=== PATIENT | male | born 1940 | race Caucasian/White ===

== ENCOUNTER 2017-11-11 09:20 | Observation (INO) | payer MEDICARE, OTHER ==
[2017-11-04 11:51] VITALS: BMI 20.5
--- NOTE | 2017-11-04 15:17 | HP ---
Admitting History and Physical - Primary Care Physician PCP: Blanco Rodriguez - Admission Chief Complaint: Left lower quadrant abdominal melanoma, right upper back basal cell carcinoma History of Present Illness: 76 year old man who has not seen a doctor in decades presents with ulcerated left lower qyadrant abdominal fungating mass that has been bleeding. Patient went to ER but no appreciable anemia was oted. This was biopsied and found to be an ulcerated malignant melanoma Mohan level 4,1.05 mm. In addition they noted right upper back ulcerated lesion that was biopsied and consistent with BCC, CT of chest abdomen and pelvis showed no metastatic dz. History Source: Patient Limitations to Obtaining History: No Limitations - Advance Directives Advance Directives: Yes: Health Care Proxy - Smoking History Smoking history: Never smoked - Alcohol/Substance Use Hx Alcohol Use: No Home Medications - Allergies Allergies/Adverse Reactions: Allergies Allergy/AdvReac Type Severity Reaction Status Date / Time No Known Allergies Allergy Verified 11/04/17 11:42 - Home Medications Home Medications: Ambulatory Orders Ferrous Sulfate [Feosol] 325 mg PO DAILY 11/04/17 Multivitamin [One Daily] 1 each PO DAILY 11/04/17 Saw/Vit E/Sod Saloni/Lyc/Beta/Pyg [Prostate Health Caplet] 1 each PO DAILY Ubidecarenone [Coq-10] 100 mg PO DAILY 11/04/17 Family Disease History - Family Disease History Family Disease History: CA: Daughter (hodgkins lymohoma) Physical Examination Constitutional: Yes: Well Nourished Gastrointestinal: Yes: Hernia (large scrotal hernia nontender//8x4 cm ulcerated skin lesion in upper right back// left lower quadrant of abdomen is a 10 cm polypoid mushroom like pigmented mass with 2x2 cm stalk, no sattelite lesions) Problem List - Problems (1) Malignant melanoma of skin of abdomen Code(s): C43.59 - MALIGNANT MELANOMA OF OTHER PART OF TRUNK (2) Basal cell carcinoma (BCC) of upper back Code(s): C44.519 - BASAL CELL CARCINOMA OF SKIN OF OTHER PART OF TRUNK Assessment/Plan right upper back malignant wide excision, melanoma excision of left lower abdomen with plastics closure, sentenel node biopsy ,lymphoscintigram
[2017-11-11] MEDS ORDERED: ISOSULFAN BLUE 10 MG/ML VIAL SQ ONE (09:47)
[2017-11-11] MEDS ORDERED: LIDOCAINE HCL 1%, 10 MG/ML (20ML VIAL) ONE (09:47)
[2017-11-11] MEDS ORDERED: BUPIVACAINE HCL/PF 2.5 MG/ML - 30 ML VIAL IJ ONE (09:47)
[2017-11-11] MEDS ORDERED: fentaNYL CITRATE 250 MCG/5 ML VIAL ONE (10:20)
[2017-11-11] MEDS ORDERED: ROCURONIUM BROMIDE 50 MG/5 ML VIAL ONE ×3 (10:20→12:01)
[2017-11-11] MEDS ORDERED: MIDAZOLAM HCL 2 MG/2 ML SINGLE DOSE VIAL ONE (10:21)
[2017-11-11] MEDS ORDERED: PROPOFOL 20 ML ONE (11:13)
[2017-11-11] MEDS ORDERED: ceFAZolin SODIUM 1 GM VIAL ONE (11:15)
[2017-11-11] MEDS ORDERED: LIDOCAINE HCL 2% JELLY (5 ML/TUBE) ONE (11:16)
[2017-11-11] MEDS ORDERED: ePHEDrine SULFATE 50 MG/1 ML AMPULE ONE (11:44)
[2017-11-11] MEDS ORDERED: ONDANSETRON 4 MG/2 ML VIAL ONE (11:54)
[2017-11-11] MEDS ORDERED: DEXAMETHASONE SOD PHOSPHATE 4 MG/1 ML VIAL ONE (11:54)
[2017-11-11] MEDS ORDERED: ONDANSETRON 4 MG/2 ML VIAL IVPUSH PRN (12:12)
[2017-11-11] MEDS ORDERED: LIDOCAINE 1%/EPI 1:100000 (20 ML MULTI DOSE VIAL) ONE ×2 (12:12→13:14)
[2017-11-11] MEDS ORDERED: LIDOCAINE 1%/EPI 1:100000 (50 ML MULTI DOSE VIAL) INF ONE (12:12)
[2017-11-11] MEDS ORDERED: DESFLURANE GAS 240 ML BOTTLE IH ONE (12:50)
[2017-11-11] MEDS ORDERED: NEOSTIGMINE METHYLSULFATE 0.5 MG/ML - 10 ML MDV ONE (13:45)
[2017-11-11] MEDS ORDERED: GLYCOPYRROLATE 0.2 MG/1 ML VIAL ONE (13:46)
[2017-11-11] MEDS ORDERED: LACTATED RINGERS SOLUTION 1,000 ML IV SCH (15:15)
--- NOTE | 2017-11-11 15:45 | OP ---
DATE OF OPERATION: 11/11/2017 TITLE OF PROCEDURE: 1. Fasciocutaneous-flap reconstruction of posterior trunk defect from excision of basal cell carcinoma. 2. Adjacent tissue-transfer reconstruction of abdominal wall defect from wide local excision of melanoma. 3. A 4-cm, complex, primary closure of left groin wound incision from sentinel lymph node biopsy. ATTENDING SURGEON: Ramírez Porter MD ASSISTANTS: There were no assistants. ANESTHESIA: General endotracheal anesthesia. PROCEDURE IN DETAIL: Procedure is performed in combination with wide local excision of invasive melanoma to the abdominal wall, wide local excision of invasive basal cell carcinoma to posterior trunk, and left inguinal sentinel lymph node biopsy. That portion of the procedure to be dictated separately by Dr. Blanco Rodriguez and his team. The patient is marked in the holding area of the appropriate sites. Risks, benefits and alternatives are discussed with the family which understood and agreed to proceed, as well as with the patient who understood and agreed to proceed. Patient is brought to the operating room. A gram of Ancef was given preoperatively. Sequential compression stockings and ROSIBEL hose are applied preoperatively. Patient is started in the prone position. Position is carefully checked by surgical and anesthesia teams. He is positioned, prepped and draped by Dr. Rodriguez and his team. I am not scrubbed in until the procedure is underway and ready for the first reconstruction. At this point, with the patient in a supine position, the first wound in the patient's left groin is closed with first a series of interrupted, deep fascial sutures closing space with a 3-0 Monocryl suture. The dermis is then closed with a series of interrupted, buried, deep dermal 3-0 Monocryl suture, followed by a running, subcuticular 3-0 Monocryl suture. This is a 4-cm incision that is closed primarily. At this point, the wide local excision of the large melanoma on the patient's abdominal wall is excised, leaving a defect that is 10 x 10 cm in dimensions down to the level of the abdominal wall musculature. The fascia had been preserved. A local advancement flap is required. This is performed by mobilizing the inferior skin and Bobby fascia over the level of the abdominal wall fascia. A Burow triangle donor site is excised along the medial and lateral extent of the advancement flap in order to allow for the started closure. A similar advancement flap from the more superior skin and Bobby layer fascia is elevated, preserving the perforating blood vessels when identified. Hemostasis is meticulously achieved with Bovie cautery. The deep Bobby layer fascia of each of the flaps is secured to one another with a series of interrupted 0-Vicryl suture, also with bites of the deep investing muscular fascia to close the space. At this point, skin "dog ears" are excised. Closure of all the skin is then performed with a series of interrupted, buried, deep dermal 3-0 Monocryl suture, followed by a running, subcuticular 3-0 Monocryl suture. Both this incision and the groin incision are dressed with 1/2-inch Steri-Strips longitudinally. ABD gauze and Hypafix tape are secured to the patient and preparations are made to turn the patient prone to address the invasive basal cell carcinoma on the patient's back. The drapes are removed. Patient is then repositioned first supine to a hospital stretcher, and then using all appropriate positional aids including chest rolls, arm pads, a pillow below the shins, and an eggcrate below the knees, the patient is then placed in a prone position. Position is carefully checked by surgical and anesthesia teams. He is re-prepped and draped in the standard surgical fashion. I awaited the wide local excision of the patient's tumor on his back performed by Dr. Blanco Rodriguez. That portion of the procedure will be dictated separately by Dr. Rodriguez. This left a [id number], circular defect on the patient's right superior back down to the level of the muscle bellies of the trapezius and latissimus muscles. Fascia was not preserved with this excision and a fasciocutaneous-flap closure is required. A rotation flap is planned, including the fascia overlying the more distal portion of the latissimus dorsi muscle which is mobilized into the defect. The donor site is able to be closed primarily in a long, curvilinear fashion. Hemostasis is meticulously achieved of perforating blood vessels through the latissimus dorsi muscle. The fascia is able to be approximated over the defect. The long fasciocutaneous-rotation flap is secured with a series of interrupted, buried 0 Vicryl suture. The dermis is then approximated with a series of interrupted, buried deep dermal 3-0 Monocryl suture and the skin is then closed with a series of interrupted natalie. Donor site and the defect are closed in the same fashion. The wound is dressed with ABD gauze, Hypafix tape, and patient is then transferred back to a supine position where he is extubated and transferred to the recovery room without complication. RAMÍREZ PORTER M.D. [facility]/[id number]
[2017-11-11] MEDS: DEXTROSE 5%-0.45% SALINE 1,000 ML IV SCH (16:47)
[2017-11-11] MEDS: oxyCODONE HCL 5 MG TABLET PO PRN (21:21)
[2017-11-12] MEDS: oxyCODONE HCL 5 MG TABLET PO PRN (06:29)
--- NOTE | 2017-11-12 07:28 | CONSULT ---
Consult Consult Specialty:: Hospital Medicine Referred by:: Blanco Rodriguez Reason for Consultation:: Blood Pressure management - History of Present Illness Chief Complaint: Hypertensive prior to surgery History of Present Illness: This is a 76 y/o man s/p right upper back malignant wide excision, melanoma excision of left lower abdomen POD #0. Prior to surgery patient's BP was elevated 198/103, asymptomatic denies CAI, blurred vision, dizziness, numbness, CP, SOB. Patient reports feeling anxious and that he did not get any sleep prior to the surgery, which he attributes to his BP being elevated. Patient reports that he was given medication by the anesthesiologist that helped to lower his BP, being able to proceed with surgery. Patient reports pain 5/10 to surgical sites. Patient denies SOB, CP, N/V. Patient reports tolerating PO liquids, he has not voided or had a BM. - History Source History Provided By: Patient Limitations to Obtaining History: No Limitations - Past Medical History Dermatology: Yes: Basal Cell, Melanoma - Past Surgical History Past Surgical History: Yes: Hernia Repair - Alcohol/Substance Use Hx Alcohol Use: No History of Substance Use: reports: None - Smoking History Smoking history: Never smoked - Social History Usual Living Arrangement: With Spouse ADL: Independent History of Recent Travel: No Home Medications - Allergies Allergies/Adverse Reactions: Allergies Allergy/AdvReac Type Severity Reaction Status Date / Time No Known Allergies Allergy Verified 11/11/17 10:01 - Home Medications Home Medications: Ambulatory Orders Ferrous Sulfate [Feosol] 325 mg PO DAILY 11/04/17 Multivitamin [One Daily] 1 each PO DAILY 11/04/17 Saw/Vit E/Sod Saloni/Lyc/Beta/Pyg [Prostate Health Caplet] 1 each PO DAILY Ubidecarenone [Coq-10] 100 mg PO DAILY 11/04/17 Family Disease History - Family Disease History Family Disease History: CA: Daughter (hodgkins lymohoma) Review of Systems - Review of Systems Constitutional: reports: No Symptoms Eyes: reports: No Symptoms HENT: reports: No Symptoms Neck: reports: No Symptoms Cardiovascular: reports: No Symptoms Respiratory: reports: No Symptoms Genitourinary: reports: No Symptoms Breasts: reports: No Symptoms Reported Musculoskeletal: reports: No Symptoms Neurological: reports: No Symptoms Endocrine: reports: No Symptoms Hematology/Lymphatic: reports: No Symptoms Psychiatric: reports: No Symptoms Physical Exam Vital Signs: Vital Signs Temperature 97.9 F 11/11/17 22:02 Pulse Rate 91 H 11/11/17 22:02 Respiratory Rate 19 11/11/17 22:02 Blood Pressure 162/89 11/11/17 22:02 O2 Sat by Pulse Oximetry (%) 97 11/11/17 22:02 Constitutional: Yes: No Distress, Calm, Thin Eyes: Yes: WNL, Conjunctiva Clear, EOM Intact, PERRL HENT: Yes: WNL, Atraumatic, Normocephalic Neck: Yes: WNL, Supple, Trachea Midline Cardiovascular: Yes: WNL, Regular Rate and Rhythm, S1, S2 Respiratory: Yes: WNL, Regular, CTA Bilaterally Gastrointestinal: Yes: Soft, Hypoactive Bowel Sounds, Other (dressing dry and intact) Breast(s): Yes: WNL Musculoskeletal: Yes: WNL Extremities: Yes: WNL Edema: No Peripheral Pulses WNL: Yes Wound/Incision: Yes: Dressing Dry and Intact Neurological: Yes: WNL, Alert, Oriented ...Motor Strength: WNL Psychiatric: Yes: WNL, Alert, Oriented Assessment/Plan 76 y/o man s/p right upper back malignant wide excision, melanoma excision of left lower abdomen POD #0. Plan: Continue with current regimen Monitor BP Consider ELENITA or Diuretic Monitor renal function Incentive Spirometer Visit type - Emergency Visit Emergency Visit: No - New Patient This patient is new to me today: Yes Date on this admission: 11/11/17 - Critical Care Critical Care patient: No
--- NOTE | 2017-11-12 08:13 | PN ---
Progress Note (short form) - Note Progress Note: POD 1 post trunk closures BP has been in reasonable control over past 24 hours Pain well controlled urinary retention this morning treated by straight cath All tissues viable without infection. small baloatable seroma on the inferior aspect of posterior closure Aspirated at bedside (10cc) Compressive dressing placed Once patient can urinate he may be discharged with evaluation from Hospitalist for home BP med recs. Leave all dressings dry until follow up on Mon/tues w/ Dr. Mccormick. Separate follow with Dr. Rodriguez.
--- NOTE | 2017-11-12 08:55 | OP ---
DATE OF OPERATION: 11/12/2017 TITLE OF PROCEDURE: Aspiration of seroma to posterior trunk reconstruction, surgical site. ATTENDING SURGEON: Berny Porter MD MODELING MANAGER: No assistants. ANESTHESIA: There is none. PREOPERATIVE DIAGNOSIS: Seroma, post-traumatic, posterior trunk. POSTOPERATIVE DIAGNOSIS: Seroma, post-traumatic, posterior trunk. PROCEDURE FOLLOWS: An 18-gauge needle and a 50-mL syringe are used. After prepping the skin with alcohol, the seroma is sterilely aspirated. Then, 10 mL of thin liquid phase fluid, reddish in color, are aspirated. The ballotable seroma is no longer palpable. A compressive dressing with an ABD gauze and taper applied. All tissues appear viable. No evidence of infection. Patient is to be monitored further by the hospitalist, medicine staff, and discharged as appropriate upon their recommendations. BERNY PORTER M.D. [facility]/[id number]
--- NOTE | 2017-11-12 10:41 | PN ---
Progress Note, Physician Chief Complaint: S/P WE of melanoma, snbx and excision of basal cell ca with reconstruction POD#1 History of Present Illness: Patient was seen this am at the bedside and reports good pain control. Patient was unable to void and was straight cathed this am. He has not voided since being catheterized. Patient is tolerating po as well. - Current Medication List Current Medications: Active Medications Dextrose/Sodium Chloride (D5-1/2ns -) 1,000 mls @ 100 mls/hr IV ASDIR KELLEY Last Admin: 11/11/17 16:47 Dose: Not Given Lactated Ringer's (Lactated Ringers Solution) 1,000 mls @ 125 mls/hr IV ASDIR KELLEY Last Admin: 11/11/17 16:47 Dose: Not Given Ondansetron HCl (Zofran Injection) 4 mg IVPUSH Q6H PRN PRN Reason: NAUSEA AND/OR VOMITING Oxycodone HCl (Roxicodone -) 5 mg PO Q6H PRN PRN Reason: PAIN LEVEL 1-5 Last Admin: 11/12/17 06:29 Dose: 5 mg - Objective Vital Signs: Vital Signs Temperature 98.5 F 11/12/17 07:12 Pulse Rate 83 11/12/17 07:12 Respiratory Rate 18 11/12/17 07:12 Blood Pressure 152/77 11/12/17 07:28 O2 Sat by Pulse Oximetry (%) 97 11/12/17 07:13 Constitutional: Yes: Well Nourished, Calm Wound/Incision: Yes: Dressing Dry and Intact (Back and abdominal dressing are clean without discharge.) Problem List - Problems (1) Basal cell carcinoma (BCC) of upper back Code(s): C44.519 - BASAL CELL CARCINOMA OF SKIN OF OTHER PART OF TRUNK (2) Malignant melanoma of skin of abdomen Code(s): C43.59 - MALIGNANT MELANOMA OF OTHER PART OF TRUNK Assessment/Plan Plan: After patient voids, he will be discharged on pain meds and will make a followup appt with Dr. Rodriguez and Dr. Mccormick next week Patient's BP is being managed by internal medicine and will be discharged with antihypertensives Patient is to keep all dressings dry and intact until he sees Dr. Mccormick next Friday
--- NOTE | 2017-11-12 10:54 | PN ---
Progress Note (short form) - Note Progress Note: 76M POD1 s/p malignant side excision with sentinel lymph node biopsy and complex repair trunk, myocutaneous flap. Pt states that pain is well controlled and reports no anesthetic complications. BP well controlled. Continue current regimen.
--- NOTE | 2017-11-12 12:34 | PN ---
Physical Exam: SUBJECTIVE: Patient seen and examined sitting on edge of bed. OBJECTIVE: Vital Signs Period Temp Pulse Resp BP Sys/Dalton Pulse Ox Last 24 Hr 97.5 F-98.5 F 69-91 13-20 119-162/56-90 95-99 Current Medications Generic Name Dose Route Start Last Admin Trade Name Freq PRN Reason Stop Dose Admin Ondansetron HCl 4 mg 11/11/17 12:12 Zofran Injection IVPUSH Q6H PRN NAUSEA AND/OR VOMITING Oxycodone HCl 5 mg 11/11/17 12:12 11/12/17 06:29 Roxicodone - PO 5 mg Q6H PRN Administration PAIN LEVEL 1-5 Tamsulosin HCl 0.4 mg 11/12/17 13:30 Flomax - PO 11/12/17 13:31 ONCE ONE ASSESSMENT/PLAN: 76 year-old male who has not sought medical care for over 40 years, who presented with an ulcerated skin lesion on upper right back and a LLQ fungating mass. Underwent resection and flap procedures on 11/11. Was hypertensive before the procedure and kept overnight on observation for blood pressure monitoring. Post-operative course now complicated by acute urinary retention. in the LLQ. s/p right upper back malignant wide excision, melanoma excision of left lower abdomen POD #0. Prior to surgery patient's BP was elevated 198/103 , asymptomatic denies CAI, blurred vision, dizziness, numbness, CP, SOB. Patient reports feeling anxious and that he did not get any sleep prior to the surgery, which he attributes to his BP being elevated. Patient reports that he was given medication by the anesthesiologist that helped to lower his BP, being able to proceed with surgery. Patient reports pain 5/10 to surgical sites. Patient denies SOB, CP, N/V. Patient reports tolerating PO liquids, he has not voided or had a BM. Melanoma --s/p --Hernia (large scrotal hernia nontender//8x4 cm ulcerated skin lesion in upper right back// left lower quadrant of abdomen is a 10 cm polypoid mushroom like pigmented mass with 2x2 cm stalk, no sattelite lesions Hypertension Urinary retention 11/08 BUN/Cr 18/0.8 US renal/bladder pending
[2017-11-12] MEDS: DEXTROSE 5%-0.45% SALINE 1,000 ML IV SCH (13:11)
[2017-11-12] MEDS ORDERED: TAMSULOSIN HCL 0.4 MG CAP.ER.24H (FP) PO ONE (13:30)
[2017-11-12] MEDS ORDERED: SODIUM CHLORIDE 500 ML IV STA (14:39)
--- NOTE | 2017-11-12 15:20 | HP ---
CHIEF COMPLAINT: Urinary retention PCP: Dr. Skyler Young, [facility] Surgeons: Drs. Mccormick and Marquez HISTORY OF PRESENT ILLNESS: 76 year-old male who has not sought medical care for over 40 years, recently diagnosed with malignant melanoma. On 11/11 underwent (1) right upper back malignant wide excision, and (2) resection of a LLQ melanoma. Patient was kept overnight for elevated blood pressure. Post-operative course now complicated by urinary retention requiring miranda insertion and mild bilateral hydronephrosis. Imaging reveals a very large prostate impinging on the urinary bladder, with possible bladder lesion. Recent Travel: No PAST MEDICAL HISTORY: None reported PAST SURGICAL HISTORY: None reported Social History: Smoking: Alcohol: Drugs: Family History: Allergies No Known Allergies Allergy (Verified 11/11/17 10:01) HOME MEDICATIONS: Home Medications Medication Instructions Recorded Ferrous Sulfate [Feosol] 325 mg PO DAILY 11/04/17 Multivitamin [One Daily] 1 each PO DAILY 11/04/17 Saw/Vit E/Sod Saloni/Lyc/Beta/Pyg 1 each PO DAILY 11/04/17 [Prostate Health Caplet] Ubidecarenone [Coq-10] 100 mg PO DAILY 11/04/17 Oxycodone HCl/Acetaminophen 1 - 2 tab PO Q6H #15 tablet MDD 5 11/12/17 [Percocet 5-325 mg Tablet -] REVIEW OF SYSTEMS: patient denies all symptoms CONSTITUTIONAL: Absent: fever, chills, diaphoresis, generalized weakness, malaise, loss of appetite, weight change HEENT: Absent: rhinorrhea, nasal congestion, throat pain, throat swelling, difficulty swallowing, mouth swelling, ear pain, eye pain, visual changes CARDIOVASCULAR: Absent: chest pain, syncope, palpitations, irregular heart rate, lightheadedness , peripheral edema RESPIRATORY: Absent: cough, shortness of breath, dyspnea with exertion, orthopnea, wheezing, stridor, hemoptysis GASTROINTESTINAL: Absent: abdominal pain, abdominal distension, nausea, vomiting, diarrhea, constipation, melena, hematochezia GENITOURINARY: Absent: dysuria, frequency, urgency, hesitancy, hematuria, flank pain, genital pain MUSCULOSKELETAL: Absent: myalgia, arthralgia, joint swelling, back pain, neck pain SKIN: Absent: rash, itching, pallor HEMATOLOGIC/IMMUNOLOGIC: Absent: easy bleeding, easy bruising, lymphadenopathy, frequent infections ENDOCRINE: Absent: unexplained weight gain, unexplained weight loss, heat intolerance, cold intolerance NEUROLOGIC: Absent: headache, focal weakness or paresthesias, dizziness, unsteady gait, seizure, mental status changes, bladder or bowel incontinence PSYCHIATRIC: Absent: anxiety, depression, suicidal or homicidal ideation, hallucinations. PHYSICAL EXAMINATION Vital Signs Temperature 98.4 F 11/12/17 14:15 Pulse Rate 85 11/12/17 14:15 Respiratory Rate 18 11/12/17 14:15 Blood Pressure 164/76 11/12/17 14:15 O2 Sat by Pulse Oximetry (%) 98 11/12/17 14:15 GENERAL: Awake, alert, and fully oriented, in no acute distress. HEAD: Normal with no signs of trauma. EYES: Pupils equal, round and reactive to light, extraocular movements intact, sclera anicteric, conjunctiva clear. No lid lag. EARS, NOSE, THROAT: Ears normal, nares patent, oropharynx clear without exudates. Moist mucous membranes. NECK: Normal range of motion, supple without lymphadenopathy, JVD, or masses. LUNGS: Breath sounds equal, clear to auscultation bilaterally. No wheezes, and no crackles. No accessory muscle use. HEART: Regular rate and rhythm, normal S1 and S2 without murmur, rub or gallop. ABDOMEN: Soft, nontender, not distended, normoactive bowel sounds, no guarding, no rebound, no masses. No hepatomegaly or splenomegaly. MUSCULOSKELETAL: Normal range of motion at all joints. No bony deformities or tenderness. No CVA tenderness. UPPER EXTREMITIES: 2+ pulses, warm, well-perfused. No cyanosis. No clubbing. No peripheral edema. LOWER EXTREMITIES: 2+ pulses, warm, well-perfused. No calf tenderness. No peripheral edema. NEUROLOGICAL: Cranial nerves II-XII intact. Normal speech. Normal gait. PSYCHIATRIC: Cooperative. Good eye contact. Appropriate mood and affect. SKIN: Warm, dry, normal turgor, no rashes or lesions noted, normal capillary refill. ASSESSMENT/PLAN 76 year-old male who has not sought medical care for 40 years. Recently diagnosed with malignant melanoma s/p resection of two lesions, POD #1. Post- operative course complicated by acute urinary retention. Malignant melanoma --s/p (1) right upper back malignant wide excision, and (2) resection of a LLQ melanoma --pending final biopsy results --followup with Drs. Mccormick and Marquez Acute urinary retention Bilateral hydronephrosis --failed voiding trial x 2 --11/12 renal/bladder: urinary retention 600cc's in bladder patient unable to void; prostate enlarged at least 100mL; hypertrophy of median lobe that invaginates the urinary bladder floor; less likely could be intrinsic urinary bladder lesion; needs cystoscopy; mild b/l hydronephrosis --reviewed CTAP from 10/24/17 (copy in paper chart): prostate markedly enlarged and indents the base of the urinary bladder; circumferential mural wall thickening of the urinary bladder desptie underdistension which may be related to chronic outlet obstruction --miranda placed --cbc, cmp, Mg, Phos ordered; note: pre-op labs done on 11/08--BUN/Cr 18/0.8 --urology consult placed Hypertension --start metoprolol 12.5mg BID Anxiety --lorazepam 05mg x 1 FEN Fluids: PO intake adequate Electrolytes: replete as indicated Nutrition: low sodium diet DVT prophylaxis: subq heparin Physical therapy Dispo: continues to require inpatient care. Full code. Visit type - Emergency Visit Emergency Visit: No - New Patient This patient is new to me today: Yes Date on this admission: 11/12/17 - Critical Care Critical Care patient: No Hospitalist Screening - Colonoscopy Questionnaire Colonoscopy Questionnaire: Colonoscopy Questionnaire - Patient: 50 - 75 years old and never had a screening colonoscopy: Yes History of colon or rectal polyps, or CA: Unknown History of IBD, Crohn's disease or UC: Unknown History of abdominal radiation therapy as a child: No - Relative: 1 with colon or rectal CA, or polyps at age 60 or younger: Unknown Colon or rectal CA diagnosed at age 45 or younger: Unknown Multiple relatives with colon or rectal CA: Unknown - Outcome: Screening Result: Positive Screen
--- NOTE | 2017-11-12 15:52 | PN ---
Progress Note (short form) - Note Progress Note: Addendum: As per discussion with Lakesha Rangel NP, patient has not voided since this am. A renal pelvic US was c/w prominent prostate enlargement and possible bladder lesion. A cystoscopy has been recommended. Plan: Transfer patient to medical service Urology consult Discharge from a surgical standpoint Problem List - Problems (1) Basal cell carcinoma (BCC) of upper back Code(s): C44.519 - BASAL CELL CARCINOMA OF SKIN OF OTHER PART OF TRUNK (2) Malignant melanoma of skin of abdomen Code(s): C43.59 - MALIGNANT MELANOMA OF OTHER PART OF TRUNK
[2017-11-12] MEDS: METOPROLOL TARTRATE 25 MG TABLET (FP) PO SCH ×2 (16:09→21:32)
[2017-11-12 16:20] LABS: BASO % 1.2 % (0-2.0); EOS % 5.7 % (0-4.5); HEMOGLOBIN 10.5 GM/dl (11.7-16.9); LYMPH % 12.3 % (8-40); MCH 31.9 pg (25.7-33.7); MEAN PLT VOLUME 9.1 fl (7.5-11.1); MONO % 9.3 % (3.8-10.2); NEUT % 71.5 % (42.8-82.8); PLATELET COUNT 465 K/MM3 (134-434); RBC 3.29 M/mm3 (4.00-5.60); RDW 13.2 % (11.9-15.9); WHITE BLOOD COUNT 10.2 K/mm3 (4.0-10.8)
[2017-11-12 16:31] LABS: ALBUMIN 3.7 g/dl (3.5-5.0); ALK PHOS 62 U/L (32-92); ANION GAP 7 MMOL/L (8-16); BILIRUBIN,TOTAL 0.8 mg/dl (0.2-1.0); BLOOD UREA NITROGEN 19 mg/dl (7-18); CALCIUM 8.6 mg/dl (8.4-10.2); CHLORIDE 97 mmol/L (98-107); CO2 26 mmol/L (22-28); CREATININE 0.9 mg/dl (0.6-1.3); GLUCOSE,RANDOM 113 mg/dl (74-106); MAGNESIUM 2.1 mg/dL (1.8-2.4); PHOSPHOROUS 3.9 mg/dl (2.5-4.6); POTASSIUM 4.1 mmol/L (3.5-5.1); SGOT/AST 31 U/L (10-42); SGPT/ALT 14 U/L (10-40); SODIUM 130 mmol/L (136-145); TOT PROT 6.9 g/dl (6.4-8.3)
[2017-11-12] MEDS ORDERED: LORazepam 0.5 MG TABLET PO ONE (16:45)
[2017-11-12] MEDS ORDERED: ACETAMINOPHEN 325 MG TABLET (FP) PO PRN (17:01)
[2017-11-12 17:02] LABS: PH,URINE 5.5 (4.5-8); URINE APPEARANCE Clear; URINE BILIRUBIN Negative (NEGATIVE); URINE COLOR Yellow; URINE GLUCOSE (UA) Negative (NEGATIVE); URINE KETONE Negative (NEGATIVE); URINE LEUK ESTERASE Negative (NEGATIVE); URINE NITRITE Negative (NEGATIVE); URINE PROTEIN 1+ (NEGATIVE); URINE UROBILINOGEN 0.2 (0.2-1.0)
[2017-11-12 18:26] LABS: URINE RBC >100 /hpf (0-3)
[2017-11-12 18:27] LABS: URINE BACTERIA MODERATE /hpf (NEGATIVE); URINE WBC 0-2 (0-2)
[2017-11-12] MEDS: HEPARIN NA (PORCINE) 5,000 UNITS/ML 1ML VIAL SQ SCH (21:33)
[2017-11-13 06:37] VITALS: BP 150/76; PULSE 71; TEMP 99
[2017-11-13] MEDS: HEPARIN NA (PORCINE) 5,000 UNITS/ML 1ML VIAL SQ SCH (06:37)
[2017-11-13 08:25] LABS: BASO % 0.9 % (0-2.0); HEMATOCRIT 27.9 % (35.4-49); HEMOGLOBIN 9.2 GM/dl (11.7-16.9); LYMPH % 16.5 % (8-40); MCH 31.1 pg (25.7-33.7); MCHC 32.9 g/dl (32.0-35.9); MEAN CELL VOLUME 94.7 fl (80-96); MEAN PLT VOLUME 9.3 fl (7.5-11.1); MONO % 11.2 % (3.8-10.2); NEUT % 60.4 % (42.8-82.8); PLATELET COUNT 384 K/MM3 (134-434); RBC 2.95 M/mm3 (4.00-5.60); RDW 13.1 % (11.9-15.9); WHITE BLOOD COUNT 7.6 K/mm3 (4.0-10.8)
[2017-11-13] MEDS ORDERED: TAMSULOSIN HCL 0.4 MG CAP.ER.24H (FP) PO SCH (08:30)
[2017-11-13 08:41] LABS: ALK PHOS 52 U/L (32-92); ANION GAP 6 MMOL/L (8-16); BILIRUBIN,TOTAL 0.9 mg/dl (0.2-1.0); BLOOD UREA NITROGEN 15 mg/dl (7-18); CALCIUM 8.3 mg/dl (8.4-10.2); CHLORIDE 105 mmol/L (98-107); CO2 27 mmol/L (22-28); CREATININE 0.7 mg/dl (0.6-1.3); GLUCOSE,RANDOM 96 mg/dl (74-106); PHOSPHOROUS 3.1 mg/dl (2.5-4.6); POTASSIUM 4.1 mmol/L (3.5-5.1); SGOT/AST 23 U/L (10-42); SGPT/ALT 13 U/L (10-40); SODIUM 138 mmol/L (136-145); TOT PROT 5.6 g/dl (6.4-8.3)
[2017-11-13] MEDS: METOPROLOL TARTRATE 25 MG TABLET (FP) PO SCH (10:00)
--- NOTE | 2017-11-13 10:59 | PN ---
Physical Exam: SUBJECTIVE: Patient seen and examined OBJECTIVE: Vital Signs Period Temp Pulse Resp BP Sys/Dalton Pulse Ox Last 24 Hr 98.3 F-99.0 F 71-85 18-20 149-164/75-76 97-100 GENERAL: The patient is awake, alert, and fully oriented, in no acute distress. HEAD: Normal with no signs of trauma. EYES: PERRL, extraocular movements intact, sclera anicteric, conjunctiva clear. No ptosis. ENT: Ears normal, nares patent, oropharynx clear without exudates, moist mucous membranes. NECK: Trachea midline, full range of motion, supple. LUNGS: Breath sounds equal, clear to auscultation bilaterally, no wheezes, no crackles, no accessory muscle use. HEART: Regular rate and rhythm, S1, S2 without murmur, rub or gallop. ABDOMEN: Soft, nontender, nondistended, normoactive bowel sounds, no guarding, no rebound, no hepatosplenomegaly, no masses. EXTREMITIES: 2+ pulses, warm, well-perfused, no edema. NEUROLOGICAL: Cranial nerves II through XII grossly intact. Normal speech, gait not observed. PSYCH: Normal mood, normal affect. SKIN: Warm, dry, normal turgor, no rashes or lesions noted Laboratory Results - last 24 hr 11/12/17 11/12/17 11/12/17 15:55 15:55 16:50 WBC 10.2 RBC 3.29 L Hgb 10.5 L Hct 31.0 L MCV 94.0 MCH 31.9 MCHC 34.0 RDW 13.2 Plt Count 465 H MPV 9.1 Absolute Neuts (auto) 7.4 Neutrophils % 71.5 Lymphocytes % 12.3 Monocytes % 9.3 Eosinophils % 5.7 H Basophils % 1.2 Sodium 130 L Potassium 4.1 Chloride 97 L Carbon Dioxide 26 Anion Gap 7 L BUN 19 H Creatinine 0.9 Creat Clearance w eGFR > 60 Random Glucose 113 H Calcium 8.6 Phosphorus 3.9 Magnesium 2.1 Total Bilirubin 0.8 AST 31 ALT 14 Alkaline Phosphatase 62 Total Protein 6.9 Albumin 3.7 Urine Color Yellow Urine Appearance Clear Urine pH 5.5 Ur Specific [place] 1.020 Urine Protein 1+ H Urine Glucose (UA) Negative Urine Ketones Negative Urine Blood 3+ H Urine Nitrite Negative Urine Bilirubin Negative Urine Urobilinogen 0.2 Ur Leukocyte Esterase Negative Urine RBC >100 Urine WBC 0-2 Urine Bacteria Moderate 11/13/17 11/13/17 07:30 07:30 WBC 7.6 RBC 2.95 L Hgb 9.2 L Hct 27.9 L MCV 94.7 MCH 31.1 MCHC 32.9 RDW 13.1 Plt Count 384 MPV 9.3 Absolute Neuts (auto) 4.5 Neutrophils % 60.4 Lymphocytes % 16.5 D Monocytes % 11.2 H Eosinophils % 11.0 H D Basophils % 0.9 Sodium 138 Potassium 4.1 Chloride 105 Carbon Dioxide 27 Anion Gap 6 L BUN 15 Creatinine 0.7 Creat Clearance w eGFR > 60 Random Glucose 96 Calcium 8.3 L Phosphorus 3.1 D Magnesium 2.0 Total Bilirubin 0.9 AST 23 D ALT 13 Alkaline Phosphatase 52 D Total Protein 5.6 L Albumin 3.0 L Urine Color Urine Appearance Urine pH Ur Specific [place] Urine Protein Urine Glucose (UA) Urine Ketones Urine Blood Urine Nitrite Urine Bilirubin Urine Urobilinogen Ur Leukocyte Esterase Urine RBC Urine WBC Urine Bacteria Active Medications Generic Name Dose Route Start Last Admin Trade Name Freq PRN Reason Stop Dose Admin Acetaminophen 650 mg 11/12/17 17:01 11/12/17 17:20 Tylenol - PO 650 mg Q6H PRN Administration PAIN LEVEL 1-5 Heparin Sodium (Porcine) 5,000 unit 11/12/17 22:00 11/13/17 06:37 Heparin - SQ 5,000 unit TID [facility] Administration Metoprolol Tartrate 12.5 mg 11/12/17 16:15 11/12/17 21:32 Lopressor - PO 12.5 mg BID KELLEY Administration Ondansetron HCl 4 mg 11/11/17 12:12 Zofran Injection IVPUSH Q6H PRN NAUSEA AND/OR VOMITING Oxycodone HCl 5 mg 11/11/17 12:12 11/12/17 06:29 Roxicodone - PO 5 mg Q6H PRN Administration PAIN LEVEL 1-5 Tamsulosin HCl 0.4 mg 11/13/17 08:30 Flomax - PO DAILY@0830 [facility] ASSESSMENT/PLAN: 76 year-old male who has not sought medical care for 40 years. Recently diagnosed with malignant melanoma s/p resection of two lesions, POD #2. Post- operative course complicated by acute urinary retention. Malignant melanoma --s/p (1) right upper back malignant wide excision, and (2) resection of a LLQ melanoma --pending final biopsy results --followup with Drs. Mccormick and Marquez Acute urinary retention Bilateral hydronephrosis Enlarged prostate --failed voiding trial x 2 --11/12 renal/bladder: urinary retention 600cc's in bladder patient unable to void; prostate enlarged at least 100mL; hypertrophy of median lobe that invaginates the urinary bladder floor; less likely could be intrinsic urinary bladder lesion; needs cystoscopy; mild b/l hydronephrosis --reviewed CTAP from 10/24/17 (copy in paper chart): prostate markedly enlarged and indents the base of the urinary bladder; circumferential mural wall thickening of the urinary bladder desptie underdistension which may be related to chronic outlet obstruction --continue miranda --urology consult placed 11/12 Hypertension --BP still elevated, switch to amlodipine 5mg Anxiety --lorazepam 05mg x 1 FEN Fluids: PO intake adequate Electrolytes: replete as indicated Nutrition: low sodium diet DVT prophylaxis: subq heparin Physical therapy Dispo: continues to require inpatient care. Full code. Visit type - Emergency Visit Emergency Visit: Yes ED Registration Date: 11/13/17 Care time: The patient presented to the Emergency Department on the above date and was hospitalized for further evaluation of their emergent condition. - New Patient This patient is new to me today: No - Critical Care Critical Care patient: No
--- NOTE | 2017-11-13 11:24 | DS ---
Physical Exam: SUBJECTIVE: Patient seen and examined OBJECTIVE: Vital Signs Period Temp Pulse Resp BP Sys/Dalton Pulse Ox Last 24 Hr 98.3 F-99.0 F 71-85 18-20 149-164/75-76 97-100 PHYSICAL EXAM GENERAL: The patient is awake, alert, and fully oriented, in no acute distress. HEAD: Normal with no signs of trauma. EYES: PERRL, extraocular movements intact, sclera anicteric, conjunctiva clear. ENT: Ears normal, nares patent, oropharynx clear without exudates, moist mucous membranes. NECK: Trachea midline, full range of motion, supple. LUNGS: Breath sounds equal, clear to auscultation bilaterally, no wheezes, no crackles, no accessory muscle use. HEART: Regular rate and rhythm, S1, S2 without murmur, rub or gallop. ABDOMEN: Soft, nontender, nondistended, normoactive bowel sounds, no guarding, no rebound, no hepatosplenomegaly, no masses. EXTREMITIES: 2+ pulses, warm, well-perfused, no edema. NEUROLOGICAL: Cranial nerves II through XII grossly intact. Normal speech, gait not observed. PSYCH: Normal mood, normal affect. SKIN: Warm, dry, normal turgor, no rashes or lesions noted. LABS Laboratory Results - last 24 hr 11/12/17 11/12/17 11/12/17 15:55 15:55 16:50 WBC 10.2 RBC 3.29 L Hgb 10.5 L Hct 31.0 L MCV 94.0 MCH 31.9 MCHC 34.0 RDW 13.2 Plt Count 465 H MPV 9.1 Absolute Neuts (auto) 7.4 Neutrophils % 71.5 Lymphocytes % 12.3 Monocytes % 9.3 Eosinophils % 5.7 H Basophils % 1.2 Sodium 130 L Potassium 4.1 Chloride 97 L Carbon Dioxide 26 Anion Gap 7 L BUN 19 H Creatinine 0.9 Creat Clearance w eGFR > 60 Random Glucose 113 H Calcium 8.6 Phosphorus 3.9 Magnesium 2.1 Total Bilirubin 0.8 AST 31 ALT 14 Alkaline Phosphatase 62 Total Protein 6.9 Albumin 3.7 Urine Color Yellow Urine Appearance Clear Urine pH 5.5 Ur Specific [place] 1.020 Urine Protein 1+ H Urine Glucose (UA) Negative Urine Ketones Negative Urine Blood 3+ H Urine Nitrite Negative Urine Bilirubin Negative Urine Urobilinogen 0.2 Ur Leukocyte Esterase Negative Urine RBC >100 Urine WBC 0-2 Urine Bacteria Moderate 11/13/17 11/13/17 07:30 07:30 WBC 7.6 RBC 2.95 L Hgb 9.2 L Hct 27.9 L MCV 94.7 MCH 31.1 MCHC 32.9 RDW 13.1 Plt Count 384 MPV 9.3 Absolute Neuts (auto) 4.5 Neutrophils % 60.4 Lymphocytes % 16.5 D Monocytes % 11.2 H Eosinophils % 11.0 H D Basophils % 0.9 Sodium 138 Potassium 4.1 Chloride 105 Carbon Dioxide 27 Anion Gap 6 L BUN 15 Creatinine 0.7 Creat Clearance w eGFR > 60 Random Glucose 96 Calcium 8.3 L Phosphorus 3.1 D Magnesium 2.0 Total Bilirubin 0.9 AST 23 D ALT 13 Alkaline Phosphatase 52 D Total Protein 5.6 L Albumin 3.0 L Urine Color Urine Appearance Urine pH Ur Specific [place] Urine Protein Urine Glucose (UA) Urine Ketones Urine Blood Urine Nitrite Urine Bilirubin Urine Urobilinogen Ur Leukocyte Esterase Urine RBC Urine WBC Urine Bacteria HOSPITAL COURSE: Date of Admission:11/12/17 Date of Discharge: 11/13/17 76 year-old male who has not sought medical care for over 40 years, recently diagnosed with malignant melanoma. On 11/11 underwent (1) right upper back malignant wide excision, and (2) resection of a LLQ melanoma. Patient was kept overnight for elevated blood pressure. Post-operative course now complicated by urinary retention requiring miranda insertion and mild bilateral hydronephrosis. Imaging reveals a very large prostate impinging on the urinary bladder, with possible bladder lesion. Malignant melanoma --s/p (1) right upper back malignant wide excision, and (2) resection of a LLQ melanoma --pending final biopsy results --followup with Drs. Mccormick and Marquez on Friday and Friday of next week Acute urinary retention Bilateral hydronephrosis Enlarged prostate --failed voiding trial x 2 --11/12 renal/bladder: urinary retention 600cc's in bladder patient unable to void; prostate enlarged at least 100mL; hypertrophy of median lobe that invaginates the urinary bladder floor; less likely could be intrinsic urinary bladder lesion; needs cystoscopy; mild b/l hydronephrosis --reviewed CTAP from 10/24/17 (copy in paper chart): prostate markedly enlarged and indents the base of the urinary bladder; circumferential mural wall thickening of the urinary bladder desptie underdistension which may be related to chronic outlet obstruction --miranda draining clear yellow urine --spoke with Dr. Devlin, he will see patient this afternoon in his [place] office Hypertension --needs outpatient followup; made appt for patient to see Dr. Valentine on 11/26 Minutes to complete discharge: 35 Discharge Summary Reason For Visit: RIGHT UPPER BACK BASAL CELL & MELANOMA Condition: Stable - Instructions Diet, Activity, Other Instructions: You are being discharged today with an indwelling miranda catheter due to urinary retention. You should go directly to the office of Dr. Eduard Devlin, [address] [place] [address], [address], [place], [place] ([phone]). Dr. Devlin is a urologist and is expecting to see you this afternoon. As we discussed, you have appointments to see Dr. Mccormick and Dr. Zyaas early next week. During your hospital stay your blood pressure was elevated. It is very important you connect with a primary care provider. An appointment has been made for you with Dr. Diallo on 11/26/17 at 10:00am. Post Operative Instructions - [facility] We hope your recovery will be uneventful. For those of you who have been given general anesthesia, there is a possibility you might have some lightheadedness and possibly nausea. It is important that each patient, especially those who have had general anesthesia, follow these instructions, please: 1. Do NOT operate a motor vehicle for 24 hours. 2. Do NOT drink any alcoholic beverages for 24 hours. 3. Do NOT take any sedatives, narcotics, or tranquilizers for 24 hours unless specifically ordered by your surgeon. 4. Do NOT undertake any strenuous exercise or outside activity for 24 hours unless specifically permitted by your surgeon. 5. Eat light foods that are easy to digest. If you have any problems with nausea and vomiting, lie down and rest. If it continues, call your surgeon. 6. Call your surgeon AT ONCE if you have problems with: a. Bleeding b. Urinating c. Excessive pain or drainage d. Numbness If any problems occur, call your physician first. If you cannot reach him/her, call the Ambulatory Surgery Unit at [phone], or the Emergency Room at . Follow up with Drs. Hdez / Marquez on Friday. Medication: Percocet 1-2 tablets every 4-6 hrs as needed for 5-7 days. Wound Care: Keep wound dry and clean. Do not shower. Do not remove the dressing. Referrals: Ren Hdez MD [Staff Physician] - Pablo Diallo MD [Staff Physician] - Ramírez Mccormick MD [Staff Physician] - Blanco Rodriguez MD [Staff Physician] - Disposition: HOME - Home Medications Comprehensive Discharge Medication List: Ambulatory Orders Ferrous Sulfate [Feosol] 325 mg PO DAILY 11/04/17 Multivitamin [One Daily] 1 each PO DAILY 11/04/17 Saw/Vit E/Sod Saloni/Lyc/Beta/Pyg [Prostate Health Caplet] 1 each PO DAILY Ubidecarenone [Coq-10] 100 mg PO DAILY 11/04/17 Oxycodone HCl/Acetaminophen [Percocet 5-325 mg Tablet -] 1 - 2 tab PO Q6H #15 tablet MDD 5 11/12/17 This patient is new to me today: No Emergency Visit: No Critical Care patient: No - Discharge Referral Referred to [facility] No
--- NOTE | 2017-11-17 10:32 | PATH ---
Surgical Pathology Report Patient Name: SAEED DECKER Med. Rec. #: [id number] /Age/Gender: 1940 (Age: 76) / M Account: [id number] Location: [facility] MED-SURG Taken: 11/11/2017 Received: 11/11/2017 Reported: 11/17/2017 Physicians: Blanco Rodriguez M.D. Specimen(s) Received A: LEFT INGUINAL SENTINAL NODES B: LEFT UPPER QUADRANT ABDOMINAL MASS C: RIGHT UPPER BACK WIDE EXCISION Clinical History Melanoma, BCC Final Diagnosis A. sentinel lymph nodes, left inguinal, excision: Four lymph nodes, negative for metastatic melanoma on H&E stained sections and melanocytic immunohistochemical markers (mitf & hmb-45). (0/4) B. abdominal mass, left upper quadrant, WIDE EXCISION: Malignant melanoma, NODULAR type. [place] Thickness: (AT LEAST) 8 MM Ulceration: present Anatomic level: iv Mitoses: ~4 /mm2 Lymphovascular invasion: not identified NeuroTROPISM: Not identified Regression: Not identified Tumor-infiltrating lymphocytes: Not identified Margins: Not involved (1.8 cm from medial margin and 3.5 cm from DEEP margin). Pathologic stage (ptnm): pT4b pN0. see also malignant melanoma case summary below. Comment: The lesional cells are positive for melanocytic immunohistochemical markers MiTF and HMB-45 (performed at [place], [place] ; [id number]); this finding supports the diagnosis. C. upper back, right, wide excision: Basal cell carcinoma, nodular and infiltrative type, ulcerated. Surgical margins are uninvolved by carcinoma; carcinoma is at 0.9 cm from the closest (inferior) margin. All other radial margins and deep margin are widely clear (> 1 CM) of carcinoma. No lymphovascular or perineural invasion is identified. Prior biopsy site changes are present. Comments Melanoma of skin: Surgical Pathology Cancer Case Summary (Based on AJCC 8th edition) Procedure _X_ Other (specify): wide excision Tumor Site Specify (if known): left upper quadrant Macroscopic Satellite Nodule(s) _X_ Not identified Histologic Type Invasive Melanoma _X_ Nodular melanoma Maximum Tumor ([place]) Thickness Specify (millimeters): 8 mm (at least) Ulceration _X_ Present Microsatellite(s) _X_ Not identified Margins Peripheral Margins# _X_ Uninvolved by invasive melanoma Distance of invasive melanoma from closest peripheral margin (millimeters): 18 mm (medial, gross measurement) Deep Margin _X_ Uninvolved by invasive melanoma Distance of invasive melanoma from deep margin (millimeters): 35 mm (gross measurement) Mitotic Rate _X_ ~4 mitoses/mm2 Anatomic ([place]ohan) Level _X_ IV (melanoma invades reticular dermis) Lymphovascular Invasion _X_ Not identified Neurotropism _X_ Not identified Tumor-Infiltrating Lymphocytes _X_ Not identified Tumor Regression _X_ Not identified Pathologic Stage Classification (pTNM, AJCC 8th Edition) Primary Tumor (pT) _X_ pT4b: Melanoma >4.0 mm in thickness, with ulceration Regional Lymph Nodes (pN) _X_ pN0: No regional lymph node metastasis detected Electronically Signed Barbara Dejesus M.D. Gross Description A. Received in formalin labeled "left inguinal sentinel node," are 4 neal, irregular lymph nodes ranging from 0.5-1.9 cm in greatest dimension. The specimens are entirely submitted in 4 cassettes as follows: 1-one whole lymph node; 2-4-one bisected lymph node each. B. Received in formalin labeled "left upper quadrant abdominal mass," is a 7.3 x 5.4 cm neal, ovoid portion of skin excised to depth of 4.2 cm. The epidermal surface displays a 9.4 x 7.5 x 5.0 cm brown, fungating, polypoid mass. There is a short suture marking the superior aspect and a long suture marking the lateral aspect of the specimen, per the surgeon. The mass is 2.2 cm from the superior margin and 2.5 cm from the inferior margin. The mass is 1.8 cm from the medial margin, 1.9 cm from the lateral margin and 3.5 cm from the deep margin. The specimen is inked as follows: Superior blue; inferior green; lateral red; medial yellow; deep black. Sectioning reveals a focus of hemorrhage at the medial margin. Process Developer sections are submitted in 16 cassettes as follows: 1-2-mass; 5-2-afxkjfkz section of mass to deep margin; 6-9-pllglmkzii bisected section of mass to deep margin; 2-0-tpxbxxhlgd deep margin; 6-23-cyodljav margin; 58-11-uaktzpoh margin; 69-97-pjzowa margin; 41-54-zjsgtnz margin. C. Received in formalin labeled "wide excision right upper back," is an 8.6 x 7.0 cm neal, ovoid portion of skin excised to depth of 3.0 cm. The epidermal surface displays a 6.6 x 4.5 cm central, ulcerated lesion. The lesion is 0.9 cm from the closest (inferior) radial margin. The specimen is inked as follows: Superior blue; inferior green; lateral red; medial yellow; deep black. Process Developer sections are submitted in 12 cassettes as follows: 1-2-mass to inferior margin; 3-4-mass to superior margin; 5-6-mass to lateral margin; 7-8-mass to medial margin; 9-12-mass to deep margin. 11/12/2017 [facility]11/12/2017
--- NOTE | 2017-11-17 11:44 | OP ---
DATE OF OPERATION: 11/11/2017 PREOPERATIVE DIAGNOSIS: Melanoma of the anterior abdominal wall, left upper outer quadrant, and basal cell carcinoma of the right upper back. POSTOPERATIVE DIAGNOSIS: Melanoma of the anterior abdominal wall, left upper outer quadrant, and basal cell carcinoma of the right upper back. PROCEDURE: [place] lymph node biopsy, left groin, and radical wide excision of left upper outer quadrant, abdominal wall melanoma and right upper back basal cell carcinoma. ANESTHESIA: General intubation. ATTENDING SURGEON: Blanco Rodriguez MD ESTIMATED BLOOD LOSS: Minimal. COMPLICATIONS: None. DESCRIPTION OF PROCEDURE: Patient was made aware of the risks and benefits of the procedure and consented. Preoperatively, he went to Nuclear Medicine, where lymphoscintigraphy showed lymphatic migration to the left inguinal region. He was then placed in the supine position, and after general anesthesia was induced, the patient was intubated. Then, 1 mL of isosulfan blue was locally infiltrated into the peritumoral dermis. The operative site was prepped and draped in the usual sterile fashion. Using the Neoprobe, left inguinal nodes region was identified. In one area, a transverse upper inguinal incision was made. Using electrocautery, tissues were dissected down to the inguinal nodes, which were also blue. A total of 2 or 3 lymph nodes were surgically excised and ex vivo counts were elevated. These were submitted for permanent sectioning. Interrogation of the wound and surrounding area with palpation and Neoprobe revealed no suspicious areas with counts less than 10% of preoperative levels. The wound was copiously irrigated with normal saline. Hemostasis maintained by electrocautery. The wound was closed with deep 3-0 Vicryl followed by a running subcuticular 4-0 Monocryl. Steri-Strips and a sterile bandage were then applied. The left upper outer quadrant mass was then approached. A 2-cm margin was then marked out and the region was infiltrated with 1% lidocaine with epinephrine. This was sharply excised down to the abdominal wall, and using electrocautery, taken off the abdominal wall and submitted for permanent section with a short suture superior long suture lateral. Dr. Mccormick then did a primary closure of this wound and will dictate his portion separately. After the abdominal portion of the operation was complete, the patient was then carefully placed in a prone position exposing the right upper back basal cell carcinoma. The operative site was prepped and draped in the usual sterile fashion. Then, 2-cm margins were marked out around this lesion. Again 1% lidocaine with epinephrine was locally infiltrated for hemostasis. Using sharp dissection, an excision was carried out down to the muscle. Using electrocautery, the subcutaneous tissue and muscular fascia was taken off, and the specimen was submitted with a short suture superior long suture lateral. The procedure was then turned over to Dr. Mccormick, who did a primary closure. He will separately dictate his portion of the procedure. BLANCO RODRIGUEZ M.D. [id number]
== END 2017-11-13 13:45 | disposition home or self-care (01) ==
LOC: SUATTDRO 09:20 → FASUSAT 09:20 → FM/S 16:20 → FASUSAT 11-12 13:01 → FM/S 11-12 17:47 → INTOOBSV 11-12 17:47 → UNDOADMOB 11-12 17:47 → FM/S 11-12 17:47 → UNDOADMIN 11-13 06:55 → UNDOADMOB 11-13 10:08 → FM/S 11-13 10:08
PROVIDERS: ADMIT Internal Medicine; ATTEND Nurse Practitioner Acute Care
PROC: 07BJ0ZX Excision of Left Inguinal Lymphatic, Open Approach, Diagnostic (ICD-10-PCS; principal; 2017-11-12)
PROC: 0JB80ZZ Excision of Abdomen Subcutaneous Tissue and Fascia, Open Approach (ICD-10-PCS; 2017-11-12)
PROC: 0JX70ZC Transfer Back Subcutaneous Tissue and Fascia with Skin, Subcutaneous Tissue and Fascia, Open Approach (ICD-10-PCS; 2017-11-12)
PROC: 0JB70ZX Excision of Back Subcutaneous Tissue and Fascia, Open Approach, Diagnostic (ICD-10-PCS; 2017-11-12)
PROC: 0T9B70Z Drainage of Bladder with Drainage Device, Via Natural or Artificial Opening (ICD-10-PCS; 2017-11-12)
PROC: 0J973ZZ Drainage of Back Subcutaneous Tissue and Fascia, Percutaneous Approach (ICD-10-PCS; 2017-11-12)
DX: C44.519 Basal cell carcinoma of skin of other part of trunk (principal); C43.59 Malignant melanoma of other part of trunk; R33.9 Retention of urine, unspecified; N13.30 Unspecified hydronephrosis; N32.89 Other specified disorders of bladder; I10 Essential (primary) hypertension; F41.9 Anxiety disorder, unspecified; N40.0 Benign prostatic hyperplasia without lower urinary tract symptoms; L76.34 Postprocedural seroma of skin and subcutaneous tissue following other procedure; Y83.8 Other surgical procedures as the cause of abnormal reaction of the patient, or of later complication, without mention of misadventure at the time of the procedure; Y92.9 Unspecified place or not applicable
CPT/HCPCS: 10160; 36415; 51702; 76775-TC; 76856-TC; 78195-TC; 80053; 81003; 81015; 83735; 84100; 85025; 87086; 88307-TC; 94760; 97116-GP; 97161-GP; A9541; G0378; J1644

== ENCOUNTER 2017-12-10 13:33 | Inpatient (IN) | payer OTHER ==
[2017-12-10] MEDS ORDERED: ROCURONIUM BROMIDE 50 MG/5 ML VIAL ONE (15:58)
[2017-12-10] MEDS ORDERED: PROPOFOL 20 ML ONE (15:58)
[2017-12-10] MEDS ORDERED: MIDAZOLAM HCL 2 MG/2 ML SINGLE DOSE VIAL ONE (15:59)
--- NOTE | 2017-12-10 16:10 | OP ---
Operative Note - Note: Operative Date: 12/10/17 Pre-Operative Diagnosis: BPH Operation: Greenlight laser of prostate Findings: enlarged prostate Post-Operative Diagnosis: Same as Pre-op Surgeon: Eduard Devlin MD. Anesthesia: General Estimated Blood Loss (mls): 20 Drains & Tubes with Location: 20 fr miranda Operative Report Dictated: Yes
[2017-12-10] MEDS ORDERED: ceFAZolin SODIUM 1 GM VIAL IVPB ONE (16:11)
[2017-12-10] MEDS ORDERED: ONDANSETRON 4 MG/2 ML VIAL IVPUSH PRN (16:23)
[2017-12-10] MEDS ORDERED: oxyCODONE HCL 5 MG TABLET PO PRN ×2 (16:23)
[2017-12-10] MEDS ORDERED: FUROSEMIDE 40 MG/4 ML INJECTABLE VIAL ONE (17:33)
--- NOTE | 2017-12-10 18:55 | OP ---
DATE OF OPERATION: 12/10/2017 PREOPERATIVE DIAGNOSIS: Benign prostate hypertrophy and urinary retention. POSTOPERATIVE DIAGNOSIS: Benign prostate hypertrophy and urinary retention. PROCEDURE: GreenLight Laser of prostate. BRIEF HISTORY: This is a very pleasant 76-year-old gentleman who was in urinary retention and failed voiding trials. Preoperative evaluation revealed the obstructive uroflow pathology and pressure flow analysis. After discussing the treatment options and obtaining preoperative clearance, the patient was cleared for surgery. BRIEF OPERATIVE NOTE: The patient was brought in the operating room, placed in the supine position where general anesthesia was administered. The patient was then transferred to a dorsal lithotomy position, prepped and draped in the standard sterile fashion. Intravenous Ancef was given. At this time a 23-Greek cystoscope sheath was placed into the bladder under direct vision. The bladder lobes were occlusive and approximately 6 cm long. There was also a large median lobe protruding into the prostate. Using the Holmium laser fiber at settings of 80-120, the lateral lobes were resected almost to the verumontanum. The median lobe was also shaved down. The roof had fallen down and was also resected. There was no evidence of active bleeding at the termination of this procedure. However, due to the large size of the prostate, the urine was pinkish to straight drainage. A 20-Greek Marie was drained and irrigated well. There was no evidence of active bleeding. Patient was brought to the recovery room in stable and satisfactory condition. ANDREW HOLLEY M.D. [id number]
[2017-12-10] MEDS: ELECTROLYTE-148 SOLN 1,000 ML IV SCH (19:30)
--- NOTE | 2017-12-11 09:26 | CON.ID ---
Consult Consult Specialty:: infectious diseases Reason for Consultation:: sepsis,fever - History of Present Illness Chief Complaint: shaking and fever History of Present Illness: 76 year old man with multiple medical problems admitted for turp patient is post turp patient has started spiking fervers which are associated with shaking and chills has foleys in place and has bloody urine patient very nervous - History Source History Provided By: Patient, Medical Record Limitations to Obtaining History: Clinical Condition - Past Medical History Dermatology: Yes: Basal Cell, Melanoma - Past Surgical History Past Surgical History: Yes: Hernia Repair - Alcohol/Substance Use Hx Alcohol Use: Yes (wine occas) History of Substance Use: reports: None - Smoking History Smoking history: Never smoked Have you smoked in the past 12 months: No - Social History Usual Living Arrangement: With Spouse ADL: Independent History of Recent Travel: No Home Medications - Allergies Allergies/Adverse Reactions: Allergies Allergy/AdvReac Type Severity Reaction Status Date / Time No Known Allergies Allergy Verified 12/09/17 13:56 - Home Medications Home Medications: Ambulatory Orders Ferrous Sulfate [Feosol] 325 mg PO DAILY 11/04/17 Multivitamin [One Daily] 1 each PO DAILY 11/04/17 Saw/Vit E/Sod Saloni/Lyc/Beta/Pyg [Prostate Health Caplet] 1 each PO DAILY Ubidecarenone [Coq-10] 100 mg PO DAILY 11/04/17 Alprazolam 0.25 mg PO PRN PRN 12/09/17 Metoprolol Tartrate 25 mg PO DAILY 12/09/17 Family Disease History - Family Disease History Family Disease History: CA: Daughter (hodgkins lymohoma) Review of Systems - Review of Systems Constitutional: reports: Chills, Fever Eyes: reports: No Symptoms HENT: reports: No Symptoms Neck: reports: No Symptoms Cardiovascular: reports: No Symptoms Respiratory: reports: No Symptoms Gastrointestinal: reports: No Symptoms Genitourinary: reports: Other Musculoskeletal: reports: No Symptoms Integumentary: reports: No Symptoms Neurological: reports: No Symptoms Endocrine: reports: No Symptoms Hematology/Lymphatic: reports: No Symptoms Psychiatric: reports: No Symptoms Physical Exam Vital Signs: Vital Signs Temperature 99.7 F H 12/11/17 06:38 Pulse Rate 86 12/11/17 06:38 Respiratory Rate 20 12/11/17 06:38 Blood Pressure 150/84 12/11/17 06:38 O2 Sat by Pulse Oximetry (%) 97 12/10/17 20:27 Constitutional: Yes: Calm, Anxious, Thin Eyes: Yes: Conjunctiva Clear Neck: Yes: Supple, Trachea Midline Cardiovascular: Yes: Regular Rate and Rhythm Respiratory: Yes: Regular, CTA Bilaterally Gastrointestinal: Yes: Normal Bowel Sounds, Soft Renal/: Yes: Marie Present, Hematuria Musculoskeletal: Yes: WNL Extremities: Yes: WNL Neurological: Yes: Alert, Oriented Psychiatric: Yes: Alert, Oriented Assessment/Plan patient post op from turp now with fevers with shaking chills sepsis fever hematuria tur p plan will order blood cx started on zosyn monitor hematuria rest as per urology await for labs
[2017-12-11] MEDS ORDERED: PIPERACILLIN/TAZOBACTAM 3.375 GM VIAL IVPB ONE ×2 (09:51→17:14)
[2017-12-11] MEDS ORDERED: DEXTROSE 5%-WATER - 50 ML IVPB ONE ×2 (09:51→17:15)
[2017-12-11 09:52] LABS: HEMATOCRIT 30.9 % (35.4-49); HEMOGLOBIN 10.4 GM/dL (11.7-16.9); MCHC 33.9 g/dl (32.0-35.9); MEAN CELL VOLUME 88.7 fl (80-96); MEAN PLT VOLUME 8.9 fl (7.5-11.1); PLATELET COUNT 346 K/MM3 (134-434); RBC 3.48 M/mm3 (4.00-5.60); RDW 16.1 % (11.9-15.9); WHITE BLOOD COUNT 3.2 K/mm3 (4.0-10.0)
[2017-12-11] MEDS: PIPERACILLIN/TAZOB 3.375 GM 3.375 GM in DEXTROSE 5%-WATER - 50 ML IVPB SCH ×2 (09:55→17:50)
[2017-12-11] MEDS: ACETAMINOPHEN 325 MG TABLET (FP) PO PRN ×2 (09:55→14:39)
[2017-12-11 10:15] LABS: ANION GAP 11 MMOL/L (8-16); BLOOD UREA NITROGEN 15 mg/dL (7-18); CALCIUM 8.3 mg/dL (8.5-10.1); CHLORIDE 106 mmol/L (98-107); CO2 23 mmol/L (21-32); GLUCOSE,RANDOM 134 mg/dL (74-106); POTASSIUM 3.6 mmol/L (3.5-5.1); SODIUM 140 mmol/L (136-145)
--- NOTE | 2017-12-11 11:36 | PN ---
Progress Note (short form) - Note Progress Note: POD #1 - s/p greenlight laser for BPH under general anesthesia. VSS except for spikes in temperature. Infectious Disease consult appreciated - pt. started on Zosyn. Pt. currently resting comfortably in bed. No complaints. No apparent anesthetic complications noted. Continue current care.
--- NOTE | 2017-12-11 14:00 | CONSULT ---
Consult - text type - Consultation Consultation Note: 76 yo male s/p GL laser of proste for extremely lg prostate Marie now to s/d clear Tm 102 this am currently afebrile vss Bladder non distended Currently on piperacillin Will follow clinically
[2017-12-11] MEDS: LACTATED RINGERS SOLUTION 1,000 ML IV SCH ×2 (14:41→17:51)
--- NOTE | 2017-12-11 16:52 | HP ---
CHIEF COMPLAINT: post op fevers PCP: Dr. Negro HISTORY OF PRESENT ILLNESS: Patient is a 76 year old male with a significant past medical history of malignant melanoma s/p right upper back malignant wide excision, resection of a LLQ melanoma, hypertension and anxiety. Patient is is post op day #1 s/p Greenlight laser for BPH under general anesthesia. Patient developed fevers with chills post op and was noted to have an elevated lactic acid. ID was consulted and patient was started on Zosyn. PAST MEDICAL/SURGICAL HISTORY: malignant melanoma s/p right upper back malignant wide excision, resection of a LLQ melanoma and anxiety. Family History: Allergies No Known Allergies Allergy (Verified 12/09/17 13:56) HOME MEDICATIONS: Home Medications Medication Instructions Recorded Ferrous Sulfate [Feosol] 325 mg PO DAILY 11/04/17 Multivitamin [One Daily] 1 each PO DAILY 11/04/17 Saw/Vit E/Sod Saloni/Lyc/Beta/Pyg 1 each PO DAILY 11/04/17 [Prostate Health Caplet] Ubidecarenone [Coq-10] 100 mg PO DAILY 11/04/17 Alprazolam 0.25 mg PO PRN PRN 12/09/17 Metoprolol Tartrate 25 mg PO DAILY 12/09/17 PHYSICAL EXAMINATION Vital Signs - 24 hr 12/10/17 12/10/17 12/10/17 17:42 18:00 18:15 Temperature 97.6 F Pulse Rate 75 68 60 Respiratory 17 13 12 Rate Blood Pressure 154/82 145/85 133/72 O2 Sat by Pulse 99 100 100 Oximetry (%) 12/10/17 12/10/17 12/10/17 18:30 18:45 19:00 Temperature Pulse Rate 73 62 64 Respiratory 18 11 L 15 Rate Blood Pressure 119/97 127/74 139/73 O2 Sat by Pulse 100 96 99 Oximetry (%) 12/10/17 12/10/17 12/10/17 19:15 19:30 20:27 Temperature 97.5 F L 97.2 F L Pulse Rate 67 61 62 Respiratory 23 13 18 Rate Blood Pressure 129/85 126/83 137/78 O2 Sat by Pulse 100 98 97 Oximetry (%) 12/11/17 12/11/17 12/11/17 04:18 06:38 09:00 Temperature 98.9 F 99.7 F H 102.1 F H Pulse Rate 84 86 100 H Respiratory 20 20 22 Rate Blood Pressure 152/80 150/84 170/74 O2 Sat by Pulse Oximetry (%) 12/11/17 12/11/17 12/11/17 11:00 11:39 15:38 Temperature 100 F H 101.8 F H Pulse Rate 88 95 H Respiratory 18 18 Rate Blood Pressure 150/82 105/60 O2 Sat by Pulse 97 Oximetry (%) GENERAL: Awake, alert, oriented x 2, slow to respond, but answers questions appropriately HEAD: Normal with no signs of trauma. EYES: Pupils equal, round and reactive to light, extraocular movements intact, sclera anicteric, conjunctiva clear. No lid lag. EARS, NOSE, THROAT: Ears normal, nares patent, oropharynx clear without exudates. Moist mucous membranes. NECK: Normal range of motion, supple without lymphadenopathy, JVD, or masses. LUNGS: Breath sounds equal, clear to auscultation bilaterally. HEART: Regular rate and rhythm ABDOMEN: Soft, nontender, not distended, normoactive bowel sounds, no guarding, no rebound, no masses. PELVIC: miranda draining dark tea colored urine. Swollen scrotum MUSCULOSKELETAL: Normal range of motion at all joints. No bony deformities or tenderness. No CVA tenderness. UPPER EXTREMITIES: No peripheral edema. LOWER EXTREMITIES:. No peripheral edema. NEUROLOGICAL: Normal speech, facial symmetry SKIN: Warm, dry, normal turgor, no rashes or lesions noted, normal capillary refill. Laboratory Results - last 24 hr 12/11/17 12/11/17 12/11/17 09:45 09:45 15:00 WBC 3.2 L RBC 3.48 L Hgb 10.4 L Hct 30.9 L MCV 88.7 MCH 30.0 MCHC 33.9 RDW 16.1 H Plt Count 346 MPV 8.9 Sodium 140 Potassium 3.6 Chloride 106 Carbon Dioxide 23 Anion Gap 11 BUN 15 Creatinine 1.0 Creat Clearance w eGFR > 60 Random Glucose 134 H Lactic Acid 5.6 H* Calcium 8.3 L ASSESSMENT/PLAN: Patient is a 76 year old male with a significant past medical history of malignant melanoma s/p right upper back malignant wide excision, resection of a LLQ melanoma, hypertension and anxiety. Patient is is post op day #1 s/p Greenlight laser for BPH under general anesthesia. Patient developed fevers with chills post op and was noted to have an elevated lactic acid. ID was consulted and patient was started on Zosyn. ID: Severe sepsis: Patient developed fever of 101F, tachycardia with lactic acidosis. Started on Zosyn (day #1) per ID. WBC stable. Monitor BP. NS fluid boluses given for lactic acidosis, repeat lactic acid at 9pm tonight and monitor. Tylenol for fevers. Card: Hypertension: BP stable, continue to monitor in the setting of sepsis. on IVF of LR. BPH s/p Greenlight laser surgery, post op care per urology. fen LR @ 125cc/hr monitor electrolytes low salt diet prophy SCDs bowel regimen pain management monitor miranda output full code Visit type - Emergency Visit Emergency Visit: No - New Patient This patient is new to me today: Yes Date on this admission: 12/11/17 - Critical Care Critical Care patient: No Hospitalist Screening - Colonoscopy Questionnaire Colonoscopy Questionnaire: Colonoscopy Questionnaire - Patient: 50 - 75 years old and never had a screening colonoscopy: Unknown History of colon or rectal polyps, or CA: Unknown History of IBD, Crohn's disease or UC: Unknown History of abdominal radiation therapy as a child: Unknown - Relative: 1 with colon or rectal CA, or polyps at age 60 or younger: Unknown Colon or rectal CA diagnosed at age 45 or younger: Unknown Multiple relatives with colon or rectal CA: Unknown - Outcome: Screening Result: Negative Screen
[2017-12-11] MEDS ORDERED: SODIUM CHLORIDE 500 ML IV STA (17:15)
[2017-12-11] MEDS ORDERED: ACETAMINOPHEN 1000 MG/100 ML VIAL (NON FORMULARY) IVPB ONE (17:30)
[2017-12-11] MEDS: ELECTROLYTE-148 SOLN 1,000 ML IV SCH (18:13)
[2017-12-12] MEDS ORDERED: DEXTROSE 5%-WATER - 50 ML IVPB ONE ×3 (02:11→17:38)
[2017-12-12] MEDS ORDERED: PIPERACILLIN/TAZOBACTAM 3.375 GM VIAL IVPB ONE ×3 (02:11→17:38)
[2017-12-12] MEDS: PIPERACILLIN/TAZOB 3.375 GM 3.375 GM in DEXTROSE 5%-WATER - 50 ML IVPB SCH ×3 (02:24→17:39)
[2017-12-12 06:56] LABS: BASO % 0.5 % (0-2.0); EOS % 0.2 % (0-4.5); HEMOGLOBIN 9.3 GM/dL (11.7-16.9); LYMPH % 3.1 % (8-40); MCH 29.1 pg (25.7-33.7); MCHC 33.1 g/dl (32.0-35.9); MEAN CELL VOLUME 87.8 fl (80-96); NEUT % 91.2 % (42.8-82.8); RBC 3.19 M/mm3 (4.00-5.60); RDW 16.4 % (11.9-15.9); WHITE BLOOD COUNT 17.6 K/mm3 (4.0-10.0)
[2017-12-12 07:04] LABS: ALBUMIN 2.4 g/dl (3.4-5.0); ALK PHOS 53 U/L (45-117); ANION GAP 10 MMOL/L (8-16); BILIRUBIN,TOTAL 1.1 mg/dL (0.2-1); BLOOD UREA NITROGEN 30 mg/dL (7-18); CALCIUM 7.8 mg/dL (8.5-10.1); CHLORIDE 104 mmol/L (98-107); CO2 23 mmol/L (21-32); CREATININE 1.7 mg/dL (0.55-1.3); GLUCOSE,RANDOM 84 mg/dL (74-106); MAGNESIUM 1.8 mg/dL (1.8-2.4); POTASSIUM 3.8 mmol/L (3.5-5.1); SGOT/AST 53 U/L (15-37); SGPT/ALT 25 U/L (13-61); SODIUM 138 mmol/L (136-145); TOT PROT 5.5 g/dl (6.4-8.2)
--- NOTE | 2017-12-12 08:12 | PN ---
Progress Note, Physician History of Present Illness: patient looks much better has been afebrile daughter in room - Current Medication List Current Medications: Active Medications Acetaminophen (Tylenol -) 650 mg PO Q6H PRN PRN Reason: FEVER Last Admin: 12/11/17 14:39 Dose: 650 mg Parenteral Electrolytes (Plasma-Lyte 148 -) 1,000 mls @ 75 mls/hr IV ASDIR KELLEY Last Admin: 12/11/17 18:13 Dose: Not Given Lactated Ringer's (Lactated Ringers Solution) 1,000 mls @ 125 mls/hr IV ASDIR KELLEY Last Admin: 12/11/17 17:51 Dose: Not Given Piperacillin Sod/Tazobactam (Sod 3.375 gm/ Dextrose) 50 mls @ 100 mls/hr IVPB Q8H-IV KELLEY; Protocol Last Admin: 12/12/17 02:24 Dose: 100 mls/hr Vancomycin HCl 1,250 mg/ (Dextrose) 250 mls @ 250 mls/2 hr IVPB Q24H KELLEY; Protocol Oxycodone HCl (Roxicodone -) 5 mg PO Q4H PRN PRN Reason: PAIN LEVEL 1-5 Oxycodone HCl (Roxicodone -) 10 mg PO Q4H PRN PRN Reason: PAIN LEVEL 6-10 - Objective Vital Signs: Vital Signs Temperature 99 F 12/12/17 06:52 Pulse Rate 92 H 12/12/17 06:52 Respiratory Rate 20 12/12/17 06:52 Blood Pressure 127/62 12/12/17 06:52 O2 Sat by Pulse Oximetry (%) 96 12/11/17 21:00 Constitutional: Yes: No Distress, Calm Cardiovascular: Yes: Regular Rate and Rhythm Respiratory: Yes: Regular, CTA Bilaterally Gastrointestinal: Yes: Normal Bowel Sounds, Soft Genitourinary: Yes: Marie Present Musculoskeletal: Yes: WNL Extremities: Yes: WNL Neurological: Yes: Alert, Oriented Psychiatric: Yes: Alert, Oriented Labs: CBC, BMP 12/12/17 06:00 12/12/17 06:00 Assessment/Plan patient post op from turp now with fevers with shaking chills sepsis fever hematuria tur p blood cx result noted plan will start patient on nvanco continue zosyn await for finalization of cx then will plan further mgmt
[2017-12-12] MEDS ORDERED: VANCOMYCIN 1,250 MG in DEXTROSE 5%-WATER - 250 ML IVPB SCH (09:00)
--- NOTE | 2017-12-12 12:09 | EKG ---
Test Reason : Blood Pressure : / mmHG Vent. Rate : 093 BPM Atrial Rate : 093 BPM P-R Int : 132 ms QRS Dur : 092 ms QT Int : 388 ms P-R-T Axes : 038 011 018 degrees QTc Int : 482 ms NORMAL SINUS RHYTHM PROLONGED QT ABNORMAL ECG NO PREVIOUS ECGS AVAILABLE Confirmed by WENDY RICHARDSON, SOL ([id number] on 12/12/2017 12:09:42 PM Referred By: Eduard Devlin Confirmed By:SOL NGUYEN MD
--- NOTE | 2017-12-12 12:21 | PN ---
Progress Note, Physician Chief Complaint: PATIENT SEEN AND EXAMINED NOTES REVIEWED AND EVENTS NOTED PATIENT IS CONFUSED, TROUBLE RECALLING INFORMATION FAMILY BEDSIDE AND STATE THIS IS NEW - Current Medication List Current Medications: Active Medications Acetaminophen (Tylenol -) 650 mg PO Q6H PRN PRN Reason: FEVER Last Admin: 12/11/17 14:39 Dose: 650 mg Parenteral Electrolytes (Plasma-Lyte 148 -) 1,000 mls @ 75 mls/hr IV ASDIR KELLEY Last Admin: 12/11/17 18:13 Dose: Not Given Lactated Ringer's (Lactated Ringers Solution) 1,000 mls @ 125 mls/hr IV ASDIR KELLEY Last Admin: 12/11/17 17:51 Dose: Not Given Piperacillin Sod/Tazobactam (Sod 3.375 gm/ Dextrose) 50 mls @ 100 mls/hr IVPB Q8H-IV KELLEY; Protocol Last Admin: 12/12/17 09:35 Dose: 100 mls/hr Vancomycin HCl 1,250 mg/ (Dextrose) 250 mls @ 250 mls/2 hr IVPB BID@0900,2100 KELLEY; Protocol Last Admin: 12/12/17 09:32 Dose: 250 mls/2 hr Oxycodone HCl (Roxicodone -) 5 mg PO Q4H PRN PRN Reason: PAIN LEVEL 1-5 Oxycodone HCl (Roxicodone -) 10 mg PO Q4H PRN PRN Reason: PAIN LEVEL 6-10 - Objective Vital Signs: Vital Signs Temperature 98.6 F 12/12/17 09:38 Pulse Rate 92 H 12/12/17 09:38 Respiratory Rate 18 12/12/17 09:38 Blood Pressure 122/61 12/12/17 09:38 O2 Sat by Pulse Oximetry (%) 96 12/11/17 21:00 Constitutional: Yes: Moderate Distress Cardiovascular: Yes: Pulse Irregular Respiratory: Yes: On Nasal O2, Rales Gastrointestinal: Yes: WNL Genitourinary: Yes: Other Musculoskeletal: Yes: WNL Extremities: Yes: WNL Edema: No Peripheral Pulses WNL: Yes Integumentary: Yes: WNL Wound/Incision: Yes: Clean/Dry Neurological: Yes: Confusion Psychiatric: Yes: Other Labs: CBC, BMP 12/12/17 06:00 12/12/17 06:00 Problem List - Problems (1) Sepsis due to urinary tract infection Code(s): A41.9 - SEPSIS, UNSPECIFIED ORGANISM; N39.0 - URINARY TRACT INFECTION, SITE NOT SPECIFIED (2) Basal cell carcinoma (BCC) of upper back Code(s): C44.519 - BASAL CELL CARCINOMA OF SKIN OF OTHER PART OF TRUNK (3) Malignant melanoma of skin of abdomen Code(s): C43.59 - MALIGNANT MELANOMA OF OTHER PART OF TRUNK Assessment/Plan S/P GREEN LIGHT PROCEDURE WITH SEPSIS IV ABX IVF TRANSFERRING TO ICU WILL NEED CARDIAC MONITORING AND CXR CRACKLES BASELINE BECAREFUL WITH IVF/DO NOT OVERLOAD TO CHF F/U CX D/W DR PONCE ICU
[2017-12-12] MEDS: ACETAMINOPHEN 325 MG TABLET (FP) PO PRN (12:29)
--- NOTE | 2017-12-12 13:33 | CONSULT ---
Consult - text type - Consultation Consultation Note: Neurology CHIEF COMPLAINT: AMS HISTORY OF PRESENT ILLNESS: 76 year old male with a significant past medical history of malignant melanoma s /p right upper back malignant wide excision, resection of a LLQ melanoma, hypertension and anxiety. Patient was admitted and completed Greenlight laser for BPH under general anesthesia by Dr. Devlin, who requested consult for AMS. The patient developed fevers with chills post op and was noted to have an elevated lactic acid. ID was consulted and patient was started on Zosyn. he also demonstrated confusion and I was consulted for further evaluation. He was seen at bedside with family members including one of them who is a very pleasant nurse. She reports his baseline is alert and oriented and completely independent. During my evaluation, he was not able to tell me the date but did know that he was in the hospital and was able to tell me the name. He was able to tell me the name of the president as well. He had difficulty remembering the name of the [employer]. His change in mental status may be multifactorial and related to anesthesia versus underlying infection which is being addressed by infectious disease. He did have vancomycin added to his regimen in addition to the Zosyn, both for hanging at bedside. He is not lethargic or somnolent during my encounter and was able to maintain attention but had difficulty answering questions. PAST MEDICAL/SURGICAL HISTORY: malignant melanoma s/p right upper back malignant wide excision, resection of a LLQ melanoma and anxiety. Family History: Allergies No Known Allergies Allergy (Verified 12/09/17 13:56) HOME MEDICATIONS: Home Medications Medication Instructions Recorded Ferrous Sulfate [Feosol] 325 mg PO DAILY 11/04/17 Multivitamin [One Daily] 1 each PO DAILY 11/04/17 Saw/Vit E/Sod Saloni/Lyc/Beta/Pyg 1 each PO DAILY 11/04/17 [Prostate Health Caplet] Ubidecarenone [Coq-10] 100 mg PO DAILY 11/04/17 Alprazolam 0.25 mg PO PRN PRN 12/09/17 Metoprolol Tartrate 25 mg PO DAILY 12/09/17 PHYSICAL EXAMINATION Vital Signs Temperature 98.6 F 12/12/17 09:38 Pulse Rate 92 H 12/12/17 09:38 Respiratory Rate 18 12/12/17 09:38 Blood Pressure 122/61 12/12/17 09:38 O2 Sat by Pulse Oximetry (%) 98 12/12/17 09:00 GENERAL: Awake, alert, oriented x 2, slow to respond, but answers questions appropriately HEAD: Normal with no signs of trauma. EYES: Pupils equal, round and reactive to light, extraocular movements intact, sclera anicteric, conjunctiva clear. No lid lag. EARS, NOSE, THROAT: Ears normal, nares patent, oropharynx clear without exudates. Moist mucous membranes. NECK: Normal range of motion, supple without lymphadenopathy, JVD, or masses. LUNGS: Breath sounds equal, clear to auscultation bilaterally. HEART: Regular rate and rhythm ABDOMEN: Soft, nontender, not distended, normoactive bowel sounds, no guarding, no rebound, no masses. PELVIC: miranda draining dark tea colored urine. Swollen scrotum MUSCULOSKELETAL: Normal range of motion at all joints. No bony deformities or tenderness. No CVA tenderness. UPPER EXTREMITIES: No peripheral edema. LOWER EXTREMITIES:. No peripheral edema. NEUROLOGICAL: Normal speech, facial symmetry, CN intact, moves all extremities grossly SKIN: Warm, dry, normal turgor, no rashes or lesions noted, normal capillary refill. CBCD WBC 17.6 K/mm3 (4.0-10.0) H 12/12/17 06:00 RBC 3.19 M/mm3 (4.00-5.60) L 12/12/17 06:00 Hgb 9.3 GM/dL (11.7-16.9) L 12/12/17 06:00 Hct 28.0 % (35.4-49) L 12/12/17 06:00 MCV 87.8 fl (80-96) 12/12/17 06:00 MCHC 33.1 g/dl (32.0-35.9) 12/12/17 06:00 RDW 16.4 % (11.9-15.9) H 12/12/17 06:00 Plt Count 346 K/MM3 (134-434) 12/11/17 09:45 MPV 8.9 fl (7.5-11.1) 12/11/17 09:45 CMP Sodium 138 mmol/L (136-145) 12/12/17 06:00 Potassium 3.8 mmol/L (3.5-5.1) 12/12/17 06:00 Chloride 104 mmol/L (98-107) 12/12/17 06:00 Carbon Dioxide 23 mmol/L (21-32) 12/12/17 06:00 Anion Gap 10 MMOL/L (8-16) 12/12/17 06:00 BUN 30 mg/dL (7-18) H 12/12/17 06:00 Creatinine 1.7 mg/dL (0.55-1.3) H 12/12/17 06:00 Creat Clearance w eGFR 39.38 (>60) 12/12/17 06:00 Random Glucose 84 mg/dL (74-106) 12/12/17 06:00 Calcium 7.8 mg/dL (8.5-10.1) L 12/12/17 06:00 Total Bilirubin 1.1 mg/dL (0.2-1) H 12/12/17 06:00 AST 53 U/L (15-37) H 12/12/17 06:00 ALT 25 U/L (13-61) 12/12/17 06:00 Alkaline Phosphatase 53 U/L (45-117) 12/12/17 06:00 Total Protein 5.5 g/dl (6.4-8.2) L 12/12/17 06:00 Albumin 2.4 g/dl (3.4-5.0) L 12/12/17 06:00 ASSESSMENT/PLAN: 76 year old male with a significant past medical history of malignant melanoma s /p right upper back malignant wide excision, resection of a LLQ melanoma, hypertension and anxiety. Patient was admitted and completed Greenlight laser for BPH under general anesthesia by Dr. Devlin, who requested consult for AMS. The patient developed fevers with chills post op and was noted to have an elevated lactic acid. ID was consulted and patient was started on Zosyn. he also demonstrated confusion and I was consulted for further evaluation. He was seen at bedside with family members including one of them who is a very pleasant nurse. She reports his baseline is alert and oriented and completely independent. During my evaluation, he was not able to tell me the date but did know that he was in the hospital and was able to tell me the name. He was able to tell me the name of the president as well. He had difficulty remembering the name of the [employer]. His change in mental status may be multifactorial and related to anesthesia versus underlying infection which is being addressed by infectious disease. He did have vancomycin added to his regimen in addition to the Zosyn, both for hanging at bedside. He is not lethargic or somnolent during my encounter and was able to maintain attention but had difficulty answering questions. Will order CT head to confirm no acute structural abnormalities Maintain adequate hydration, monitor blood pressure, maintain normotensive range Reorientation recommended Xanax being held due to concern of mental status, would recommend reinitiating when he is more oriented because he does have significant anxiety that was apparent during my encounter follow-up ID recommendations, monitor white count Monitor lactic acid level Is improving in mental status, continue supportive care
--- NOTE | 2017-12-12 14:48 | PN ---
Physical Exam: SUBJECTIVE: Patient seen and examined OBJECTIVE: Vital Signs Period Temp Pulse Resp BP Sys/Dalton Pulse Ox Last 24 Hr 98.2 F-101.8 F 78-95 18-20 105-127/60-76 96-98 GENERAL: The patient is awake, alert, and fully oriented, in no acute distress. HEAD: Normal with no signs of trauma. EYES: PERRL, extraocular movements intact, sclera anicteric, conjunctiva clear. No ptosis. ENT: Ears normal, nares patent, oropharynx clear without exudates, moist mucous membranes. NECK: Trachea midline, full range of motion, supple. LUNGS: Breath sounds equal, clear to auscultation bilaterally, no wheezes, no crackles, no accessory muscle use. HEART: Regular rate and rhythm, S1, S2 without murmur, rub or gallop. ABDOMEN: Soft, nontender, nondistended, normoactive bowel sounds, no guarding, no rebound, no hepatosplenomegaly, no masses. EXTREMITIES: 2+ pulses, warm, well-perfused, no edema. NEUROLOGICAL: Cranial nerves II through XII grossly intact. Normal speech, gait not observed. PSYCH: Normal mood, normal affect. SKIN: Warm, dry, normal turgor, no rashes or lesions noted Laboratory Results - last 24 hr 12/11/17 12/11/17 12/12/17 15:00 21:00 06:00 WBC 17.6 H RBC 3.19 L Hgb 9.3 L Hct 28.0 L MCV 87.8 MCH 29.1 MCHC 33.1 RDW 16.4 H Absolute Neuts (auto) 16.1 H Neutrophils % 91.2 H Lymphocytes % 3.1 L Monocytes % 5.0 Eosinophils % 0.2 Basophils % 0.5 Nucleated RBC % 0 Sodium Potassium Chloride Carbon Dioxide Anion Gap BUN Creatinine Creat Clearance w eGFR Random Glucose Lactic Acid 5.6 H* 3.7 H* Calcium Magnesium Total Bilirubin AST ALT Alkaline Phosphatase Total Protein Albumin 12/12/17 12/12/17 06:00 09:05 WBC RBC Hgb Hct MCV MCH MCHC RDW Absolute Neuts (auto) Neutrophils % Lymphocytes % Monocytes % Eosinophils % Basophils % Nucleated RBC % Sodium 138 Potassium 3.8 Chloride 104 Carbon Dioxide 23 Anion Gap 10 BUN 30 H Creatinine 1.7 H Creat Clearance w eGFR 39.38 Random Glucose 84 Lactic Acid 1.7 Calcium 7.8 L Magnesium 1.8 Total Bilirubin 1.1 H AST 53 H ALT 25 Alkaline Phosphatase 53 Total Protein 5.5 L Albumin 2.4 L Active Medications Current Medications Acetaminophen (Tylenol -) 650 mg PO Q6H PRN PRN Reason: FEVER Last Admin: 12/12/17 12:29 Dose: 650 mg Chlorhexidine Gluconate (Hibiclens For Decolonization -) 1 applic TP HS KELLEY Parenteral Electrolytes (Plasma-Lyte 148 -) 1,000 mls @ 75 mls/hr IV ASDIR KELLEY Last Admin: 12/11/17 18:13 Dose: Not Given Piperacillin Sod/Tazobactam (Sod 3.375 gm/ Dextrose) 50 mls @ 100 mls/hr IVPB Q8H-IV KELLEY; Protocol Last Admin: 12/12/17 09:35 Dose: 100 mls/hr Vancomycin HCl 1,250 mg/ (Dextrose) 250 mls @ 250 mls/2 hr IVPB BID@0900,2100 KELLEY; Protocol Last Admin: 12/12/17 09:32 Dose: 250 mls/2 hr Sodium Chloride (Normal Saline -) 1,000 mls @ 75 mls/hr IV ASDIR KELLEY Mupirocin (Bactroban Ointment (For Decolonization) -) 1 applic NS BID [facility] Stop: 12/17/17 21:59 Oxycodone HCl (Roxicodone -) 5 mg PO Q4H PRN PRN Reason: PAIN LEVEL 1-5 Oxycodone HCl (Roxicodone -) 10 mg PO Q4H PRN PRN Reason: PAIN LEVEL 6-10 ASSESSMENT/PLAN:
[2017-12-12] MEDS: SODIUM CHLORIDE 1,000 ML IV SCH (15:05)
[2017-12-12] MEDS ORDERED: ACETAMINOPHEN 325 MG TABLET (FP) PO PRN (15:06)
[2017-12-12] MEDS ORDERED: ELECTROLYTE-148 SOLN 1,000 ML IV SCH (15:06)
[2017-12-12] MEDS ORDERED: oxyCODONE HCL 5 MG TABLET PO PRN ×2 (15:06)
--- NOTE | 2017-12-12 15:41 | PN ---
Teaching Attending Note Name of Resident: Gregg Ansari ATTENDING PHYSICIAN STATEMENT I saw and evaluated the patient. I reviewed the resident's note and discussed the case with the resident. I agree with the resident's findings and plan as documented. SUBJECTIVE: Patient seen and examined in the ICU. Transferred from the medical floor due to an acute change in mental status. He is oriented to person and place and year. He is apparently somewhat slow to answer questions according to his daughter that is a RN. Being treated for a febrile illness that is thought to be due to a source. He is POD #2 from a Green light procedure. \ Intake & Output 12/09/17 12/10/17 12/11/17 12/12/17 23:59 23:59 23:59 23:59 Intake Total 1000 3605 2350 Output Total 4200 1200 800 Balance -3200 2405 1550 Weight 140 lb Last Vital Signs Temp Pulse Resp BP Pulse Ox 98.2 F 76 18 128/64 98 12/12/17 15:18 12/12/17 15:18 12/12/17 15:18 12/12/17 15:18 12/12/17 09:00 Active Medications Acetaminophen (Tylenol -) 650 mg PO Q6H PRN PRN Reason: FEVER Chlorhexidine Gluconate (Hibiclens For Decolonization -) 1 applic TP HS [facility] Sodium Chloride (Normal Saline -) 1,000 mls @ 75 mls/hr IV ASDIR [facility] Last Admin: 12/12/17 15:05 Dose: 75 mls/hr Parenteral Electrolytes (Plasma-Lyte 148 -) 1,000 mls @ 75 mls/hr IV ASDIR [facility] Vancomycin HCl 1,250 mg/ (Dextrose) 250 mls @ 250 mls/2 hr IVPB BID@0900,2100 [facility]; Protocol Piperacillin Sod/Tazobactam (Sod 3.375 gm/ Dextrose) 50 mls @ 100 mls/hr IVPB Q8H-IV [facility]; Protocol Mupirocin (Bactroban Ointment (For Decolonization) -) 1 applic NS BID [facility] Stop: 12/17/17 21:59 Oxycodone HCl (Roxicodone -) 5 mg PO Q4H PRN PRN Reason: PAIN LEVEL 1-5 Oxycodone HCl (Roxicodone -) 10 mg PO Q4H PRN PRN Reason: PAIN LEVEL 6-10 Constitutional: Yes: Awake and responsive Cardiovascular: Yes: Pulse Irregular Respiratory: Yes: On Nasal O2, diminished at the bases Gastrointestinal: Yes: WNL Genitourinary: Yes: Other Musculoskeletal: Yes: WNL Extremities: Yes: WNL Edema: No Peripheral Pulses WNL: Yes Integumentary: Yes: WNL Wound/Incision: Yes: Clean/Dry Neurological: Yes: non-focal Psychiatric: Yes: Other Labs: Laboratory Results - last 24 hr 12/11/17 12/11/17 12/12/17 15:00 21:00 06:00 WBC 17.6 H RBC 3.19 L Hgb 9.3 L Hct 28.0 L MCV 87.8 MCH 29.1 MCHC 33.1 RDW 16.4 H Absolute Neuts (auto) 16.1 H Neutrophils % 91.2 H Lymphocytes % 3.1 L Monocytes % 5.0 Eosinophils % 0.2 Basophils % 0.5 Nucleated RBC % 0 Sodium Potassium Chloride Carbon Dioxide Anion Gap BUN Creatinine Creat Clearance w eGFR Random Glucose Lactic Acid 5.6 H* 3.7 H* Calcium Magnesium Total Bilirubin AST ALT Alkaline Phosphatase Total Protein Albumin 12/12/17 12/12/17 06:00 09:05 WBC RBC Hgb Hct MCV MCH MCHC RDW Absolute Neuts (auto) Neutrophils % Lymphocytes % Monocytes % Eosinophils % Basophils % Nucleated RBC % Sodium 138 Potassium 3.8 Chloride 104 Carbon Dioxide 23 Anion Gap 10 BUN 30 H Creatinine 1.7 H Creat Clearance w eGFR 39.38 Random Glucose 84 Lactic Acid 1.7 Calcium 7.8 L Magnesium 1.8 Total Bilirubin 1.1 H AST 53 H ALT 25 Alkaline Phosphatase 53 Total Protein 5.5 L Albumin 2.4 L Problem List - Problems (1) Sepsis due to urinary tract infection Code(s): A41.9 - SEPSIS, UNSPECIFIED ORGANISM; N39.0 - URINARY TRACT INFECTION, SITE NOT SPECIFIED (2) Basal cell carcinoma (BCC) of upper back Code(s): C44.519 - BASAL CELL CARCINOMA OF SKIN OF OTHER PART OF TRUNK (3) Malignant melanoma of skin of abdomen Code(s): C43.59 - MALIGNANT MELANOMA OF OTHER PART OF TRUNK Assessment/Plan IVF: (caution with CHF history) Strict I & O ABX per ID O2 as needed Pain control (may be contributing to AMS) Incentive Spirometry ICU monitoring Dr Medina Critical care time spent in reviewing chart, evaluating patient and formulating plan - 36 minutes.
--- NOTE | 2017-12-12 15:42 | CONSULT ---
Consultation: REQUESTING PROVIDER: CONSULT REQUEST: We have been asked to medically evaluate this patient for HISTORY OF PRESENT ILLNESS: A 76 y.o. M w/ PMHx. of HTN, Anxiety, BPH( POD #2 of greenlight laser procedure under general), s/p resection of Left Middle Quadrant basal cell carcinoma, s/p resection of localized stage 4 malignant melanoma 1 month ago, present to the ICU with fever, chills, and bacteremia. Pt. has positive preliminary blood cultures. Pt. was started on Zosyn and added Vancomycin. . Pt. endorses resolving hematuria, diaphoresis and confusion. Pt. at this time denies chest pain, shortness of breath, abdominal pain, dysuria or any other complaints. PASTMEDICAL/SURGICAL HISTORY: malignant melanoma s/p right upper back malignant wide excision, resection of a LLQ melanoma and anxiety. REVIEW OF SYSTEMS: CONSTITUTIONAL: Present: fever, chills, diaphoresis, generalized weakness Absent : malaise, loss of appetite, weight change HEENT: Absent: rhinorrhea, nasal congestion, throat pain, throat swelling, difficulty swallowing, mouth swelling, ear pain, eye pain, visual changes CARDIOVASCULAR: Absent: chest pain, syncope, palpitations, irregular heart rate , lightheadedness, peripheral edema RESPIRATORY: Absent: cough, shortness of breath, dyspnea with exertion, orthopnea, wheezing, stridor, hemoptysis GASTROINTESTINAL: Present:abdominal distension Absent: abdominal pain, nausea, vomiting, diarrhea, constipation, melena, hematochezia GENITOURINARY: Present: hematuria Absent: dysuria, frequency, urgency, hesitancy , flank pain, genital pain SKIN: Present: wound on upper right back and on left middle abdomen NEUROLOGIC: Present: Confusion Absent: headache, focal weakness or paresthesias , dizziness, unsteady gait, seizure, mental status changes, bladder or bowel incontinence PSYCHIATRIC: Present: anxiety PHYSICAL EXAMINATION Vital Signs - 24 hr 12/11/17 12/11/17 12/12/17 16:30 21:00 01:00 Temperature 99.5 F 98.2 F Pulse Rate 90 78 Respiratory 18 20 Rate Blood Pressure 111/61 125/76 O2 Sat by Pulse 96 Oximetry (%) 12/12/17 12/12/17 12/12/17 06:52 09:00 09:38 Temperature 99 F 98.6 F Pulse Rate 92 H 92 H Respiratory 20 18 Rate Blood Pressure 127/62 122/61 O2 Sat by Pulse 98 Oximetry (%) 12/12/17 15:18 Temperature 98.2 F Pulse Rate 76 Respiratory 18 Rate Blood Pressure 128/64 O2 Sat by Pulse Oximetry (%) GENERAL: Awake, A&Ox 2, not to date, in no acute distress. EYES: extraocular movements intact, sclera anicteric, conjunctiva clear. EARS, NOSE, THROAT: Ears normal, nares patent, Moist mucous membranes. LUNGS: Decreased breath sounds, mild bibasilar crackles. No accessory muscle use. HEART: Regular rate and rhythm, normal S1 and S2 without murmur ABDOMEN: Firm, nontender, distended, normoactive bowel sounds, no guarding, no rebound, no masses, dull to percusison. UPPER EXTREMITIES: 2+ left radial pulse, warm, well-perfused. No cyanosis. No clubbing. Cap refill <2 seconds. No peripheral edema. LOWER EXTREMITIES: 2+ dorsal pedal pulses, warm, well-perfused. No calf tenderness. No peripheral edema. NEUROLOGICAL: No focal deficits PSYCHIATRIC: Cooperative. Good eye contact. Appropriate mood and affect. SKIN: Warm, dry, normal turgor, surgical scar in right upper back and left middle abdomen Laboratory Results - last 24 hr 12/11/17 12/11/17 12/12/17 15:00 21:00 06:00 WBC 17.6 H RBC 3.19 L Hgb 9.3 L Hct 28.0 L MCV 87.8 MCH 29.1 MCHC 33.1 RDW 16.4 H Absolute Neuts (auto) 16.1 H Neutrophils % 91.2 H Lymphocytes % 3.1 L Monocytes % 5.0 Eosinophils % 0.2 Basophils % 0.5 Nucleated RBC % 0 Sodium Potassium Chloride Carbon Dioxide Anion Gap BUN Creatinine Creat Clearance w eGFR Random Glucose Lactic Acid 5.6 H* 3.7 H* Calcium Magnesium Total Bilirubin AST ALT Alkaline Phosphatase Total Protein Albumin 12/12/17 12/12/17 06:00 09:05 WBC RBC Hgb Hct MCV MCH MCHC RDW Absolute Neuts (auto) Neutrophils % Lymphocytes % Monocytes % Eosinophils % Basophils % Nucleated RBC % Sodium 138 Potassium 3.8 Chloride 104 Carbon Dioxide 23 Anion Gap 10 BUN 30 H Creatinine 1.7 H Creat Clearance w eGFR 39.38 Random Glucose 84 Lactic Acid 1.7 Calcium 7.8 L Magnesium 1.8 Total Bilirubin 1.1 H AST 53 H ALT 25 Alkaline Phosphatase 53 Total Protein 5.5 L Albumin 2.4 L Active Medications Current Medications Acetaminophen (Tylenol -) 650 mg PO Q6H PRN PRN Reason: FEVER Chlorhexidine Gluconate (Hibiclens For Decolonization -) 1 applic TP HS [facility] Sodium Chloride (Normal Saline -) 1,000 mls @ 75 mls/hr IV ASDIR [facility] Last Admin: 12/12/17 15:05 Dose: 75 mls/hr Parenteral Electrolytes (Plasma-Lyte 148 -) 1,000 mls @ 75 mls/hr IV ASDIR K[facility] Vancomycin HCl 1,250 mg/ (Dextrose) 250 mls @ 250 mls/2 hr IVPB BID@0900,2100 [facility]; Protocol Piperacillin Sod/Tazobactam (Sod 3.375 gm/ Dextrose) 50 mls @ 100 mls/hr IVPB Q8H-IV [facility]; Protocol Mupirocin (Bactroban Ointment (For Decolonization) -) 1 applic NS BID [facility] Stop: 12/17/17 21:59 Oxycodone HCl (Roxicodone -) 5 mg PO Q4H PRN PRN Reason: PAIN LEVEL 1-5 Oxycodone HCl (Roxicodone -) 10 mg PO Q4H PRN PRN Reason: PAIN LEVEL 6-10 ASSESSMENT/PLAN: A 76 y.o. M w/ PMHx. of HTN, Anxiety, BPH( POD #2 of greenlight laser procedure under general), s/p resection of Left Middle Quadrant basal cell carcinoma, s/p resection of localized stage 4 malignant melanoma 1 month ago, present to the ICU with fever, chills, and bacteremia likely septic. #Cardiovascular -HTN hold metoprolol as BP is in normal range -Anemia monitor H/H transfuse if HgB is below 7 #Nephrology -LORY Give NS @ 75ml/hr Creatinine 1.0-->1.7 f/u Urine electrolytes and Urea f/u Renal US Nephrology consult (Dr. Castillo) appreciated Oxycodone 5 mg and 10 mg PRN Hold nephrotoxic agents #Infectious Disease -Sepsis f/u CXR today and tomorrow f/u blood cultures- preliminary positive growths in all tubes c/w Zosyn and Vancomycin renally dosed ID Consult (Dr. Calvillo) appreciated LA 5.5-->1.7 #F/E/N -start NS @ 75ml/hr -encourage PO intake -monitor replete electrolytes #DVT Ppx. SCDs Dispo: We will continue to follow the patient. Thank you for this consultative opportunity.
[2017-12-12 16:07] LABS: PLATELET ESTIMATE ADEQUATE
--- NOTE | 2017-12-12 16:24 | CONSULT ---
Consult Consult Specialty:: Nephrology Reason for Consultation:: LORY - History of Present Illness Chief Complaint: fever and chills History of Present Illness: Pt is a 76 year old male with pmhx of HTN, basal cell cancer, melanoma, anxiety , and bph who developed fever and chills after a green light procedure. He was found to have positive blood cultures. Pt did have some confusion as well. I was called to evaluate him as he was found to have developed LORY. His urine output decreased overnight however it has improved through the course of the day with fluids. He does have fever and chills. He denies shortness of breath however he is on oxygen. Family are at bedside and assisted with history. - History Source History Provided By: Patient, Family Member - Past Medical History Cardio/Vascular: Yes: HTN Renal/: Yes: BPH Psych: Yes: Anxiety Dermatology: Yes: Basal Cell, Melanoma - Past Surgical History Past Surgical History: Yes: Hernia Repair - Alcohol/Substance Use Hx Alcohol Use: Yes (wine occas) History of Substance Use: reports: None - Smoking History Smoking history: Never smoked Have you smoked in the past 12 months: No - Social History Usual Living Arrangement: With Spouse ADL: Independent History of Recent Travel: No Home Medications - Allergies Allergies/Adverse Reactions: Allergies Allergy/AdvReac Type Severity Reaction Status Date / Time No Known Allergies Allergy Verified 12/09/17 13:56 - Home Medications Home Medications: Ambulatory Orders Ferrous Sulfate [Feosol] 325 mg PO DAILY 11/04/17 Multivitamin [One Daily] 1 each PO DAILY 11/04/17 Saw/Vit E/Sod Saloni/Lyc/Beta/Pyg [Prostate Health Caplet] 1 each PO DAILY Ubidecarenone [Coq-10] 100 mg PO DAILY 11/04/17 Alprazolam 0.25 mg PO PRN PRN 12/09/17 Metoprolol Tartrate 25 mg PO DAILY 12/09/17 Family Disease History - Family Disease History Family Disease History: CA: Daughter (hodgkins lymohoma) Review of Systems - Review of Systems Constitutional: reports: Chills, Fever, Malaise Eyes: reports: No Symptoms HENT: reports: No Symptoms Neck: reports: No Symptoms Cardiovascular: reports: No Symptoms Respiratory: reports: No Symptoms Gastrointestinal: reports: No Symptoms Genitourinary: reports: Other (miranda) Musculoskeletal: reports: No Symptoms Integumentary: reports: No Symptoms Neurological: reports: Confusion Endocrine: reports: No Symptoms Hematology/Lymphatic: reports: No Symptoms Psychiatric: reports: No Symptoms Physical Exam Vital Signs: Vital Signs Temperature 98.2 F 12/12/17 15:18 Pulse Rate 76 12/12/17 15:18 Respiratory Rate 18 12/12/17 15:18 Blood Pressure 128/64 12/12/17 15:18 O2 Sat by Pulse Oximetry (%) 98 12/12/17 09:00 Constitutional: Yes: Calm Eyes: Yes: Conjunctiva Clear HENT: Yes: Atraumatic Cardiovascular: Yes: S1, S2 Respiratory: Yes: On Nasal O2, Rhonchi Gastrointestinal: Yes: Soft Renal/: Yes: Miranda Present, Other (dark urine) Musculoskeletal: Yes: Muscle Weakness Edema: No Integumentary: Yes: Other (surgical scars) Neurological: Yes: Oriented Psychiatric: Yes: Oriented Labs: CBC, BMP 12/12/17 06:00 12/12/17 06:00 Laboratory Tests 11/13/17 11/26/17 12/11/17 07:30 12:55 09:45 WBC 3.2 L Hgb 10.4 L Band Neutrophils % BUN Creatinine 0.7 0.8 Lactic Acid Ur Random Sodium Urine Creatinine 12/11/17 12/11/17 12/11/17 09:45 15:00 21:00 WBC Hgb Band Neutrophils % BUN Creatinine 1.0 Lactic Acid 5.6 H* 3.7 H* Ur Random Sodium Urine Creatinine 12/12/17 12/12/17 12/12/17 06:00 06:00 09:05 WBC 17.6 H Hgb 9.3 L Band Neutrophils % 22.0 BUN 30 H Creatinine 1.7 H Lactic Acid 1.7 Ur Random Sodium Urine Creatinine 12/12/17 12/12/17 16:00 16:00 WBC Hgb Band Neutrophils % BUN Creatinine Lactic Acid Ur Random Sodium Pending Urine Creatinine Pending Imaging - Results Chest X-ray: Report Reviewed Ultrasound: Report Reviewed Problem List - Problems (1) LORY (acute kidney injury) Code(s): N17.9 - ACUTE KIDNEY FAILURE, UNSPECIFIED (2) BPH (benign prostatic hyperplasia) Code(s): N40.0 - BENIGN PROSTATIC HYPERPLASIA WITHOUT LOWER URINRY TRACT SYMP (3) HTN (hypertension) Code(s): I10 - ESSENTIAL (PRIMARY) HYPERTENSION (4) Anxiety Code(s): F41.9 - ANXIETY DISORDER, UNSPECIFIED (5) Lactic acid acidosis Code(s): E87.2 - ACIDOSIS (6) Sepsis due to urinary tract infection Code(s): A41.9 - SEPSIS, UNSPECIFIED ORGANISM; N39.0 - URINARY TRACT INFECTION, SITE NOT SPECIFIED (7) Basal cell carcinoma (BCC) of upper back Code(s): C44.519 - BASAL CELL CARCINOMA OF SKIN OF OTHER PART OF TRUNK Assessment/Plan Current Medications Generic Name Dose Route Start Last Admin Trade Name Freq PRN Reason Stop Dose Admin Acetaminophen 650 mg 12/12/17 15:06 Tylenol - PO Q6H PRN FEVER Chlorhexidine Gluconate 1 applic 12/12/17 22:00 Hibiclens For Decolonization - TP HS K[facility] Sodium Chloride 1,000 mls @ 75 mls/hr 12/12/17 14:45 12/12/17 15:05 Normal Saline - IV 75 mls/hr ASDIR [facility] Administration Parenteral Electrolytes 1,000 mls @ 75 mls/hr 12/12/17 15:06 Plasma-Lyte 148 - IV ASDIR [facility] Vancomycin HCl 1,250 mg/ 250 mls @ 250 mls/2 hr 12/12/17 21:00 Dextrose IVPB BID@0900,2100 [facility] 9. ALEXA Protocol Piperacillin Sod/Tazobactam 50 mls @ 100 mls/hr 12/12/17 18:00 Sod 3.375 gm/ Dextrose IVPB Q8H-IV [facility] Protocol Mupirocin 1 applic 12/12/17 22:00 Bactroban Ointment (For Decolonization) - NS 12/17/17 21:59 BID [facility] Oxycodone HCl 5 mg 12/12/17 15:06 Roxicodone - PO Q4H PRN PAIN LEVEL 1-5 Oxycodone HCl 10 mg 12/12/17 15:06 Roxicodone - PO Q4H PRN PAIN LEVEL 6-10 Impression 1. LORY 2. sepsis 3. bacteremia 4. hx htn 5. basal cell cancer 6. melanoma resected 7. anxiety 8. bph s/p greenlight [place] procedure on the 10 12. UTI Plan - check ua - send urine sodium cell stripper and urea - cont with fluids, change to saline - monitor volume status - cxr reviewed - monitor pulse ox - lactic acidosis is improving - ID eval - cont abx and renal dose - repeat blood cultures - admit to ICU - discusses with ICU team - discussed with medical attending - will follow Dr Castillo
[2017-12-12 18:22] LABS: URINE CREATININE < 13.0 mg/dL (2-36); URINE POTASSIUM < 9.0 MMOL/L (25-125)
[2017-12-12] MEDS: VANCOMYCIN 1,250 MG in DEXTROSE 5%-WATER - 250 ML IVPB SCH (21:30)
[2017-12-12] MEDS: CHLORHEXIDINE GLUCONATE 4% CLEANSER FOR DECOLONIZATION TP SCH (22:20)
[2017-12-12] MEDS: MUPIROCIN 2% TOPICAL OINTMENT FOR DECOLONIZATION NS SCH (22:20)
[2017-12-13] MEDS ORDERED: PIPERACILLIN/TAZOBACTAM 3.375 GM VIAL IVPB ONE ×3 (01:05→17:37)
[2017-12-13] MEDS ORDERED: DEXTROSE 5%-WATER - 50 ML IVPB ONE ×3 (01:05→17:37)
[2017-12-13] MEDS: PIPERACILLIN/TAZOB 3.375 GM 3.375 GM in DEXTROSE 5%-WATER - 50 ML IVPB SCH ×3 (01:07→17:42)
--- NOTE | 2017-12-13 08:50 | PN ---
Progress Note (short form) - Note Progress Note: [facility] Progress note f/u SUBJECTIVE: Patient seen and examined in the ICU. -delirious and low grade temp overnight -less confused this morning -cxl from yesterday negative so far, will narrow once sens come back Vital Signs Temp 97.6 F 12/13/17 06:57 Pulse 68 12/13/17 08:00 Resp 22 H 12/13/17 08:00 BP 135/73 12/13/17 08:00 Pulse Ox 98 12/12/17 22:00 Intake & Output 12/12/17 12/12/17 12/13/17 11:59 23:59 11:59 Intake Total 1000 1600 1250 Output Total 315 471 4253 Balance 800 1000 -1050 Intake: IV 1000 1150 900 Lactated Ringers Solution 1000 1000 1,000 ml @ 125 mls/hr IV ASDIR [facility] Rx#: [id number] Normal Saline - 1,000 ml 150 900 @ 75 mls/hr IV ASDIR [facility] Rx#:[id number] IVPB 400 300 Oral 50 50 Output: Urine [phone] Marie [phone] Other: Voiding Method Indwelling Catheter Indwelling Catheter Bowel Movement No Yes Active Medications Acetaminophen (Tylenol -) 650 mg PO Q6H PRN PRN Reason: FEVER Chlorhexidine Gluconate (Hibiclens For Decolonization -) 1 applic TP HS [facility] Last Admin: 12/12/17 22:20 Dose: 1 applic Sodium Chloride (Normal Saline -) 1,000 mls @ 75 mls/hr IV ASDIR [facility] Last Admin: 12/12/17 15:05 Dose: 75 mls/hr Vancomycin HCl 1,250 mg/ (Dextrose) 250 mls @ 250 mls/2 hr IVPB BID@0900,2100 [facility]; Protocol Last Admin: 12/12/17 21:30 Dose: 250 mls/2 hr Piperacillin Sod/Tazobactam (Sod 3.375 gm/ Dextrose) 50 mls @ 100 mls/hr IVPB Q8H-IV [facility]; Protocol Last Admin: 12/13/17 01:07 Dose: 100 mls/hr Mupirocin (Bactroban Ointment (For Decolonization) -) 1 applic NS BID [facility] Stop: 12/17/17 21:59 Last Admin: 12/12/17 22:20 Dose: 1 applic Oxycodone HCl (Roxicodone -) 5 mg PO Q4H PRN PRN Reason: PAIN LEVEL 1-5 Oxycodone HCl (Roxicodone -) 10 mg PO Q4H PRN PRN Reason: PAIN LEVEL 6-10 CBCD WBC 17.6 K/mm3 (4.0-10.0) H 12/12/17 06:00 RBC 3.19 M/mm3 (4.00-5.60) L 12/12/17 06:00 Hgb 9.3 GM/dL (11.7-16.9) L 12/12/17 06:00 Hct 28.0 % (35.4-49) L 12/12/17 06:00 MCV 87.8 fl (80-96) 12/12/17 06:00 MCHC 33.1 g/dl (32.0-35.9) 12/12/17 06:00 RDW 16.4 % (11.9-15.9) H 12/12/17 06:00 Plt Count No Result Required. 12/12/17 06:00 MPV No Result Required. 12/12/17 06:00 CMP Sodium 138 mmol/L (136-145) 12/12/17 06:00 Potassium 3.8 mmol/L (3.5-5.1) 12/12/17 06:00 Chloride 104 mmol/L (98-107) 12/12/17 06:00 Carbon Dioxide 23 mmol/L (21-32) 12/12/17 06:00 Anion Gap 10 MMOL/L (8-16) 12/12/17 06:00 BUN 30 mg/dL (7-18) H 12/12/17 06:00 Creatinine 1.7 mg/dL (0.55-1.3) H 12/12/17 06:00 Creat Clearance w eGFR 39.38 (>60) 12/12/17 06:00 Calcium 7.8 mg/dL (8.5-10.1) L 12/12/17 06:00 Total Bilirubin 1.1 mg/dL (0.2-1) H 12/12/17 06:00 AST 53 U/L (15-37) H 12/12/17 06:00 ALT 25 U/L (13-61) 12/12/17 06:00 Alkaline Phosphatase 53 U/L (45-117) 12/12/17 06:00 Total Protein 5.5 g/dl (6.4-8.2) L 12/12/17 06:00 Albumin 2.4 g/dl (3.4-5.0) L 12/12/17 06:00 Microbiology 12/11/17 09:30 Blood - Peripheral Venous Blood Culture - Preliminary Group D Strep Or Entero Coccus Non Lactose Fermenting Gnb 12/11/17 09:45 Blood - Peripheral Venous Blood Culture - Preliminary Group D Strep Or Entero Coccus Non Lactose Fermenting Gnb Constitutional: Yes: Awake alert, mildly confused Cardiovascular: Yes: Regular, no m/r/g Respiratory: Yes: On Nasal O2, diminished at the bases, few crackles Gastrointestinal: Yes: WNL Genitourinary: Yes: Other Musculoskeletal: Yes: WNL Extremities: Yes: WNL Edema: None Peripheral Pulses WNL: Yes Integumentary: Yes: WNL Wound/Incision: Yes: Clean/Dry Neurological: Yes: non-focal , improved delerium Psychiatric: Yes: Other Problem List - Problems (1) Sepsis due to urinary tract infection Code(s): A41.9 - SEPSIS, UNSPECIFIED ORGANISM; N39.0 - URINARY TRACT INFECTION, SITE NOT SPECIFIED (2) Basal cell carcinoma (BCC) of upper back Code(s): C44.519 - BASAL CELL CARCINOMA OF SKIN OF OTHER PART OF TRUNK (3) Malignant melanoma of skin of abdomen Code(s): C43.59 - MALIGNANT MELANOMA OF OTHER PART OF TRUNK Assessment/Plan Strict I & O ABX per ID O2 as needed Pain control with tylenol Incentive Spirometry ok for floor today [place] ACNP [id number]
--- NOTE | 2017-12-13 09:37 | PN ---
Progress Note (short form) - Note Progress Note: RENAL Pt is awake and alert somewhat confused daughter by bedside had a temp last night and was confused Last Vital Signs Temp Pulse Resp BP Pulse Ox 97.6 F 68 22 H 135/73 98 12/13/17 06:57 12/13/17 08:00 12/13/17 08:00 12/13/17 08:00 12/12/17 22:00 lungs basilar crackles cvs s1s2 distant abd soft, not tender ext no edema has a miranda Current Medications Generic Name Dose Route Start Last Admin Trade Name Freq PRN Reason Stop Dose Admin Acetaminophen 650 mg 12/12/17 15:06 Tylenol - PO Q6H PRN FEVER Chlorhexidine Gluconate 1 applic 12/12/17 22:00 12/12/17 22:20 Hibiclens For Decolonization - TP 1 applic HS [facility] Administration Sodium Chloride 1,000 mls @ 75 mls/hr 12/12/17 14:45 12/12/17 15:05 Normal Saline - IV 75 mls/hr ASDIR [facility] Administration Vancomycin HCl 1,250 mg/ 250 mls @ 250 mls/2 hr 12/12/17 21:00 12/12/17 21:30 Dextrose IVPB 250 mls/2 hr BID@0900,2100 [facility] Administration Protocol Piperacillin Sod/Tazobactam 50 mls @ 100 mls/hr 12/12/17 18:00 12/13/17 01:07 Sod 3.375 gm/ Dextrose IVPB 100 mls/hr Q8H-IV [facility] Administration Protocol Mupirocin 1 applic 12/12/17 22:00 12/12/17 22:20 Bactroban Ointment (For Decolonization) - NS 12/17/17 21:59 1 applic BID [facility] Administration Oxycodone HCl 5 mg 12/12/17 15:06 Roxicodone - PO Q4H PRN PAIN LEVEL 1-5 Oxycodone HCl 10 mg 12/12/17 15:06 Roxicodone - PO Q4H PRN PAIN LEVEL 6-10 IMPRESSION 1. LORY 2. sepsis 3. bacteremia 4. hx htn 5. basal cell cancer 6. melanoma resected 7. anxiety 8. bph s/p greenlight laser procedure on the 9. UTI- may be cause of sepsis if resulting from urologic procedure Plan repeat labs cxr given crackles vanco trough ordered suspect he will need lower dose of vanco since he is not a big man MV
[2017-12-13] MEDS ORDERED: PT OWN MED DRAWER 7, Y5N ONE ×2 (09:44→11:05)
[2017-12-13] MEDS: MUPIROCIN 2% TOPICAL OINTMENT FOR DECOLONIZATION NS SCH ×2 (09:51→22:12)
[2017-12-13 10:16] LABS: BASO % 0.6 % (0-2.0); EOS % 5.4 % (0-4.5); HEMATOCRIT 31.9 % (35.4-49); HEMOGLOBIN 10.3 GM/dL (11.7-16.9); LYMPH % 5.8 % (8-40); MCH 28.5 pg (25.7-33.7); MCHC 32.3 g/dl (32.0-35.9); MEAN CELL VOLUME 88.3 fl (80-96); MEAN PLT VOLUME 9.4 fl (7.5-11.1); MONO % 5.1 % (3.8-10.2); NEUT % 83.1 % (42.8-82.8); PLATELET COUNT 217 K/MM3 (134-434); RBC 3.61 M/mm3 (4.00-5.60); RDW 16.8 % (11.9-15.9); WHITE BLOOD COUNT 15.2 K/mm3 (4.0-10.0)
--- NOTE | 2017-12-13 10:30 | PN ---
Progress Note, Physician History of Present Illness: events noted patient became confused lethargic was txed to icu currently feels better wbc trending down - Current Medication List Current Medications: Active Medications Acetaminophen (Tylenol -) 650 mg PO Q6H PRN PRN Reason: FEVER Chlorhexidine Gluconate (Hibiclens For Decolonization -) 1 applic TP HS KELLEY Last Admin: 12/12/17 22:20 Dose: 1 applic Sodium Chloride (Normal Saline -) 1,000 mls @ 75 mls/hr IV ASDIR [facility]EL[facility] Last Admin: 12/12/17 15:05 Dose: 75 mls/hr Piperacillin Sod/Tazobactam (Sod 3.375 gm/ Dextrose) 50 mls @ 100 mls/hr IVPB Q8H-IV KELLEY; Protocol Last Admin: 12/13/17 09:51 Dose: 100 mls/hr Mupirocin (Bactroban Ointment (For Decolonization) -) 1 applic NS BID [facility] Stop: 12/17/17 21:59 Last Admin: 12/13/17 09:51 Dose: 1 applic Oxycodone HCl (Roxicodone -) 5 mg PO Q4H PRN PRN Reason: PAIN LEVEL 1-5 Oxycodone HCl (Roxicodone -) 10 mg PO Q4H PRN PRN Reason: PAIN LEVEL 6-10 - Objective Vital Signs: Vital Signs Temperature 97.6 F 12/13/17 06:57 Pulse Rate 68 12/13/17 08:00 Respiratory Rate 22 H 12/13/17 08:00 Blood Pressure 135/73 12/13/17 08:00 O2 Sat by Pulse Oximetry (%) 98 12/12/17 22:00 Constitutional: Yes: No Distress, Calm Cardiovascular: Yes: Regular Rate and Rhythm Respiratory: Yes: Regular, CTA Bilaterally Gastrointestinal: Yes: Normal Bowel Sounds, Soft Genitourinary: Yes: Marie Present Musculoskeletal: Yes: WNL Extremities: Yes: WNL Neurological: Yes: Alert, Other Psychiatric: Yes: Alert Labs: CBC, BMP 12/13/17 10:10 - ....Imaging Chest X-ray: Image Reviewed Cat Scan: Report Reviewed, Image Reviewed Assessment/Plan Problem List - Problems (1) Sepsis due to urinary tract infection Code(s): A41.9 - SEPSIS, UNSPECIFIED ORGANISM; N39.0 - URINARY TRACT INFECTION, SITE NOT SPECIFIED (2) Basal cell carcinoma (BCC) of upper back Code(s): C44.519 - BASAL CELL CARCINOMA OF SKIN OF OTHER PART OF TRUNK (3) Malignant melanoma of skin of abdomen Code(s): C43.59 - MALIGNANT MELANOMA OF OTHER PART OF TRUNK 4 leukocytosis 5 altered mental status plan await for identification of the bacteria will stop vanco continue zosyn close watch monitor wbc rest as per icu cc 40 min
[2017-12-13] MEDS: VANCOMYCIN 1,250 MG in DEXTROSE 5%-WATER - 250 ML IVPB SCH (11:06)
[2017-12-13 11:39] LABS: ANION GAP 7 MMOL/L (8-16); BLOOD UREA NITROGEN 19 mg/dL (7-18); CALCIUM 8.3 mg/dL (8.5-10.1); CHLORIDE 109 mmol/L (98-107); CO2 28 mmol/L (21-32); GLUCOSE,RANDOM 92 mg/dL (74-106); POTASSIUM 3.8 mmol/L (3.5-5.1); SODIUM 144 mmol/L (136-145)
[2017-12-13 11:54] LABS: PLATELET ESTIMATE ADEQUATE
[2017-12-13] MEDS: SODIUM CHLORIDE 1,000 ML IV SCH (14:00)
--- NOTE | 2017-12-13 17:15 | PN ---
Progres Note Chief Complaint: Sepsis History of Present Illness: S/P GL laser for markedly enlarged prostate and urinary retention pt dev sepsis and temporary confusion Currentl lucid oob conversing normally - Objective Vital Signs: Vital Signs Temperature 98 F 12/13/17 16:00 Pulse Rate 84 12/13/17 16:00 Respiratory Rate 18 12/13/17 16:00 Blood Pressure 140/82 12/13/17 16:00 O2 Sat by Pulse Oximetry (%) 96 12/13/17 10:00 Labs/Additional Data: CBC, BMP 12/13/17 10:10 12/13/17 10:10 Imaging - Results X-ray: Report Reviewed Problem List - Problems (1) Sepsis due to urinary tract infection Assessment/Plan: Resolving sepsis Miranda to urine clear Cont iv abx as per ID plan d/c miranda friday Code(s): A41.9 - SEPSIS, UNSPECIFIED ORGANISM; N39.0 - URINARY TRACT INFECTION, SITE NOT SPECIFIED
[2017-12-13] MEDS: CHLORHEXIDINE GLUCONATE 4% CLEANSER FOR DECOLONIZATION TP SCH (22:12)
[2017-12-14] MEDS ORDERED: DEXTROSE 5%-WATER - 50 ML IVPB ONE ×2 (01:09→10:56)
[2017-12-14] MEDS ORDERED: PIPERACILLIN/TAZOBACTAM 3.375 GM VIAL IVPB ONE ×3 (01:09→17:23)
[2017-12-14] MEDS: PIPERACILLIN/TAZOB 3.375 GM 3.375 GM in DEXTROSE 5%-WATER - 50 ML IVPB SCH ×3 (02:29→18:08)
[2017-12-14] MEDS: SODIUM CHLORIDE 1,000 ML IV SCH ×3 (03:53→23:00)
[2017-12-14 05:43] LABS: HEMATOCRIT 28.9 % (35.4-49); HEMOGLOBIN 9.8 GM/dL (11.7-16.9); MCH 29.7 pg (25.7-33.7); MCHC 33.9 g/dl (32.0-35.9); MEAN CELL VOLUME 87.5 fl (80-96); MEAN PLT VOLUME 9.9 fl (7.5-11.1); PLATELET COUNT 203 K/MM3 (134-434); RDW 16.9 % (11.9-15.9); WHITE BLOOD COUNT 9.2 K/mm3 (4.0-10.0)
[2017-12-14 06:27] LABS: ALBUMIN 2.3 g/dl (3.4-5.0); ALK PHOS 107 U/L (45-117); ANION GAP 9 MMOL/L (8-16); BILIRUBIN,TOTAL 0.5 mg/dL (0.2-1); BLOOD UREA NITROGEN 14 mg/dL (7-18); CALCIUM 7.7 mg/dL (8.5-10.1); CHLORIDE 110 mmol/L (98-107); CO2 24 mmol/L (21-32); CREATININE 0.9 mg/dL (0.55-1.3); GLUCOSE,RANDOM 85 mg/dL (74-106); POTASSIUM 3.5 mmol/L (3.5-5.1); SGOT/AST 32 U/L (15-37); SGPT/ALT 23 U/L (13-61); SODIUM 142 mmol/L (136-145); TOT PROT 5.6 g/dl (6.4-8.2)
--- NOTE | 2017-12-14 08:10 | PN ---
Progress Note (short form) - Note Progress Note: [facility] Progress note f/u SUBJECTIVE: Patient seen and examined in the ICU. -delirious and low grade temp overnight -GNR speciated to citrobacter sens to ceftriaxone Vital Signs Temp 98.4 F 12/14/17 06:00 Pulse 63 12/14/17 06:00 Resp 21 H 12/14/17 06:00 BP 148/81 12/14/17 06:00 Pulse Ox 99 12/13/17 22:00 Intake & Output 12/13/17 12/13/17 12/14/17 11:59 23:59 11:59 Intake Total 1250 2130 875 Output Total 2300 1900 500 Balance -1050 230 375 Weight 70.959 kg Intake: IV 900 1050 525 Normal Saline - 1,000 ml 900 1050 525 @ 75 mls/hr IV ASDIR KELLEY Rx#:[id number] IVPB 300 100 50 Oral 50 980 300 Output: Urine 2300 1900 500 Marie 2300 1900 500 Other: Voiding Method Indwelling Catheter Indwelling Catheter Bowel Movement Yes No Yes; small amount # Bowel Movements 1 Weight Measurement Method Built in [facility] Active Medications Acetaminophen (Tylenol -) 650 mg PO Q6H PRN PRN Reason: FEVER Chlorhexidine Gluconate (Hibiclens For Decolonization -) 1 applic TP HS [facility] Last Admin: 12/12/17 22:20 Dose: 1 applic Sodium Chloride (Normal Saline -) 1,000 mls @ 75 mls/hr IV ASDIR [facility] Last Admin: 12/12/17 15:05 Dose: 75 mls/hr Vancomycin HCl 1,250 mg/ (Dextrose) 250 mls @ 250 mls/2 hr IVPB BID@0900,2100 KELLEY; Protocol Last Admin: 12/12/17 21:30 Dose: 250 mls/2 hr Piperacillin Sod/Tazobactam (Sod 3.375 gm/ Dextrose) 50 mls @ 100 mls/hr IVPB Q8H-IV KELLEY; Protocol Last Admin: 12/13/17 01:07 Dose: 100 mls/hr Mupirocin (Bactroban Ointment (For Decolonization) -) 1 applic NS BID [facility] Stop: 12/17/17 21:59 Last Admin: 12/12/17 22:20 Dose: 1 applic Oxycodone HCl (Roxicodone -) 5 mg PO Q4H PRN PRN Reason: PAIN LEVEL 1-5 Oxycodone HCl (Roxicodone -) 10 mg PO Q4H PRN PRN Reason: PAIN LEVEL 6-10 CBC,CMP WBC 9.2 K/mm3 (4.0-10.0) 12/14/17 05:05 RBC 3.30 M/mm3 (4.00-5.60) L 12/14/17 05:05 Hgb 9.8 GM/dL (11.7-16.9) L 12/14/17 05:05 Hct 28.9 % (35.4-49) L 12/14/17 05:05 MCV 87.5 fl (80-96) 12/14/17 05:05 MCH 29.7 pg (25.7-33.7) 12/14/17 05:05 MCHC 33.9 g/dl (32.0-35.9) 12/14/17 05:05 RDW 16.9 % (11.9-15.9) H 12/14/17 05:05 Plt Count 203 K/MM3 (134-434) 12/14/17 05:05 MPV 9.9 fl (7.5-11.1) 12/14/17 05:05 Absolute Neuts (auto) 12.6 K/mm3 (1.5-8.0) H 12/13/17 10:10 Total Counted 100 12/12/17 06:00 Neutrophils % 83.1 % (42.8-82.8) H 12/13/17 10:10 Neutrophils % (Manual) 64.0 % (42.8-82.8) 12/12/17 06:00 Band Neutrophils % 22.0 % 12/12/17 06:00 Lymphocytes % 5.8 % (8-40) L D 12/13/17 10:10 Monocytes % 5.1 % (3.8-10.2) 12/13/17 10:10 Monocytes % (Manual) 3 % (3.8-10.2) L 12/12/17 06:00 Eosinophils % 5.4 % (0-4.5) H D 12/13/17 10:10 Eosinophils % (Manual) 1.0 % (0-4.5) 12/12/17 06:00 Basophils % 0.6 % (0-2.0) 12/13/17 10:10 Myelocytes % (Man) 2 % (0-2) 12/12/17 06:00 Nucleated RBC % 0 % (0-0) 12/13/17 10:10 Metamyelocytes 8 % (0-2) H 12/12/17 06:00 Platelet Estimate Adequate 12/13/17 10:10 Platelet Comment 12/13/17 10:10 Sodium 142 mmol/L (136-145) 12/14/17 05:05 Potassium 3.5 mmol/L (3.5-5.1) 12/14/17 05:05 Chloride 110 mmol/L (98-107) H 12/14/17 05:05 Carbon Dioxide 24 mmol/L (21-32) 12/14/17 05:05 Anion Gap 9 MMOL/L (8-16) 12/14/17 05:05 BUN 14 mg/dL (7-18) 12/14/17 05:05 Creatinine 0.9 mg/dL (0.55-1.3) 12/14/17 05:05 Creat Clearance w eGFR > 60 (>60) 12/14/17 05:05 Random Glucose 85 mg/dL (74-106) 12/14/17 05:05 Lactic Acid 1.7 mmol/L (0.4-2.0) 12/12/17 09:05 Calcium 7.7 mg/dL (8.5-10.1) L 12/14/17 05:05 Magnesium 1.8 mg/dL (1.8-2.4) 12/12/17 06:00 Total Bilirubin 0.5 mg/dL (0.2-1) 12/14/17 05:05 AST 32 U/L (15-37) 12/14/17 05:05 ALT 23 U/L (13-61) 12/14/17 05:05 Alkaline Phosphatase 107 U/L (45-117) 12/14/17 05:05 Total Protein 5.6 g/dl (6.4-8.2) L 12/14/17 05:05 Albumin 2.3 g/dl (3.4-5.0) L 12/14/17 05:05 Microbiology 12/12/17 19:15 Blood - Peripheral Venous Blood Culture - Preliminary NO GROWTH OBTAINED AFTER 24 HOURS, INCUBATION TO CONTINUE FOR 4 DAYS. 12/12/17 18:00 Blood - Peripheral Venous Blood Culture - Preliminary NO GROWTH OBTAINED AFTER 24 HOURS, INCUBATION TO CONTINUE FOR 4 DAYS. 12/11/17 09:30 Blood - Peripheral Venous Blood Culture - Preliminary Group D Strep Or Entero Coccus Citrobacter Koseri 12/11/17 09:45 Blood - Peripheral Venous Blood Culture - Preliminary Group D Strep Or Entero Coccus Citrobacter Koseri Constitutional: Yes: Awake alert, mildly confused Cardiovascular: Yes: Regular, no m/r/g Respiratory: Yes: On Nasal O2, diminished at the bases, few crackles Gastrointestinal: Yes: WNL Genitourinary: Yes: Other Musculoskeletal: Yes: WNL Extremities: Yes: WNL Edema: None Peripheral Pulses WNL: Yes Integumentary: Yes: WNL Wound/Incision: Yes: Clean/Dry Neurological: Yes: non-focal , alert and oriented Psychiatric: Yes: Other Problem List - Problems (1) Sepsis due to urinary tract infection Code(s): A41.9 - SEPSIS, UNSPECIFIED ORGANISM; N39.0 - URINARY TRACT INFECTION, SITE NOT SPECIFIED (2) Basal cell carcinoma (BCC) of upper back Code(s): C44.519 - BASAL CELL CARCINOMA OF SKIN OF OTHER PART OF TRUNK (3) Malignant melanoma of skin of abdomen Code(s): C43.59 - MALIGNANT MELANOMA OF OTHER PART OF TRUNK Assessment/Plan 76 y/o man, urosepsis 2/2 greenlight procedure, now resolved, Strict I & O ABX per ID ---could narrow to ceftriaxone. O2 as needed Pain control with tylenol Incentive Spirometry ok for floor today [place] ACNP 1652
--- NOTE | 2017-12-14 10:11 | PN ---
Progress Note (short form) - Note Progress Note: RENAL Pt is awake and alert no complaints Last Vital Signs Temp Pulse Resp BP Pulse Ox 98.4 F 63 21 H 148/81 99 12/14/17 06:00 12/14/17 06:00 12/14/17 06:00 12/14/17 06:00 12/13/17 22:00 lungs basilar crackles cvs s1s2 distant abd soft, not tender ext no edema has a miranda Current Medications Generic Name Dose Route Start Last Admin Trade Name Freq PRN Reason Stop Dose Admin Acetaminophen 650 mg 12/12/17 15:06 Tylenol - PO Q6H PRN FEVER Chlorhexidine Gluconate 1 applic 12/12/17 22:00 12/13/17 22:12 Hibiclens For Decolonization - TP 1 applic HS KELLEY Administration Sodium Chloride 1,000 mls @ 75 mls/hr 12/12/17 14:45 12/14/17 03:53 Normal Saline - IV 75 mls/hr ASDIR KELLEY Administration Piperacillin Sod/Tazobactam 50 mls @ 100 mls/hr 12/12/17 18:00 12/14/17 02:29 Sod 3.375 gm/ Dextrose IVPB 100 mls/hr Q8H-IV KELLEY Administration Protocol Mupirocin 1 applic 12/12/17 22:00 12/13/17 22:12 Bactroban Ointment (For Decolonization) - NS 12/17/17 21:59 1 applic BID KELLEY Administration Oxycodone HCl 5 mg 12/12/17 15:06 Roxicodone - PO Q4H PRN PAIN LEVEL 1-5 Oxycodone HCl 10 mg 12/12/17 15:06 Roxicodone - PO Q4H PRN PAIN LEVEL 6-10 CBC, BMP 12/14/17 05:05 12/14/17 05:05 IMPRESSION 1. LORY- resolved 2. sepsis 3. bacteremia 4. hx htn 5. basal cell cancer 6. melanoma resected 7. anxiety 8. bph s/p greenlight laser procedure on the 9. UTI- may be cause of sepsis if resulting from urologic procedure 10 creackles probably from some degree of atelectasis- cxr showed crowded markings Plan continue current management change [place] to [place] if possible MV
[2017-12-14] MEDS: MUPIROCIN 2% TOPICAL OINTMENT FOR DECOLONIZATION NS SCH ×2 (10:58→21:24)
[2017-12-14 11:28] VITALS: BMI 23.7
--- NOTE | 2017-12-14 12:00 | PN ---
Progress Note, Physician History of Present Illness: doing well looks much better says he is feeling well - Current Medication List Current Medications: Active Medications Acetaminophen (Tylenol -) 650 mg PO Q6H PRN PRN Reason: FEVER Chlorhexidine Gluconate (Hibiclens For Decolonization -) 1 applic TP HS [facility] Last Admin: 12/13/17 22:12 Dose: 1 applic Sodium Chloride (Normal Saline -) 1,000 mls @ 75 mls/hr IV ASDIR [facility] Last Admin: 12/14/17 03:53 Dose: 75 mls/hr Piperacillin Sod/Tazobactam (Sod 3.375 gm/ Dextrose) 50 mls @ 100 mls/hr IVPB Q8H-IV KELLEY; Protocol Last Admin: 12/14/17 10:58 Dose: 100 mls/hr Mupirocin (Bactroban Ointment (For Decolonization) -) 1 applic NS BID [facility]LEY Stop: 12/17/17 21:59 Last Admin: 12/14/17 10:58 Dose: 1 applic Oxycodone HCl (Roxicodone -) 5 mg PO Q4H PRN PRN Reason: PAIN LEVEL 1-5 Oxycodone HCl (Roxicodone -) 10 mg PO Q4H PRN PRN Reason: PAIN LEVEL 6-10 - Objective Vital Signs: Vital Signs Temperature 98.4 F 12/14/17 06:00 Pulse Rate 78 12/14/17 10:00 Respiratory Rate 15 12/14/17 10:00 Blood Pressure 156/86 12/14/17 10:00 O2 Sat by Pulse Oximetry (%) 99 12/14/17 09:00 Constitutional: Yes: No Distress, Calm Cardiovascular: Yes: Regular Rate and Rhythm Respiratory: Yes: Regular, CTA Bilaterally Gastrointestinal: Yes: Normal Bowel Sounds, Soft Musculoskeletal: Yes: WNL Extremities: Yes: WNL Neurological: Yes: Alert, Oriented Psychiatric: Yes: Alert, Oriented Labs: CBC, BMP 12/14/17 05:05 12/14/17 05:05 Assessment/Plan Problem List - Problems (1) Sepsis due to urinary tract infection Code(s): A41.9 - SEPSIS, UNSPECIFIED ORGANISM; N39.0 - URINARY TRACT INFECTION, SITE NOT SPECIFIED (2) Basal cell carcinoma (BCC) of upper back Code(s): C44.519 - BASAL CELL CARCINOMA OF SKIN OF OTHER PART OF TRUNK (3) Malignant melanoma of skin of abdomen Code(s): C43.59 - MALIGNANT MELANOMA OF OTHER PART OF TRUNK 4 leukocytosis 5 altered mental status plan cx report noted continue zosyn close watch monitor wbc rest as per icu cc 40 min
--- NOTE | 2017-12-14 14:15 | PN ---
Progress Note, Physician Chief Complaint: Sepsis - Current Medication List Current Medications: Active Medications Acetaminophen (Tylenol -) 650 mg PO Q6H PRN PRN Reason: FEVER Chlorhexidine Gluconate (Hibiclens For Decolonization -) 1 applic TP HS KELLEY Last Admin: 12/13/17 22:12 Dose: 1 applic Sodium Chloride (Normal Saline -) 1,000 mls @ 75 mls/hr IV ASDIR KEL[facility] Last Admin: 12/14/17 03:53 Dose: 75 mls/hr Piperacillin Sod/Tazobactam (Sod 3.375 gm/ Dextrose) 50 mls @ 100 mls/hr IVPB Q8H-IV KELLEY; Protocol Last Admin: 12/14/17 10:58 Dose: 100 mls/hr Mupirocin (Bactroban Ointment (For Decolonization) -) 1 applic NS BID KELLEY Stop: 12/17/17 21:59 Last Admin: 12/14/17 10:58 Dose: 1 applic Oxycodone HCl (Roxicodone -) 5 mg PO Q4H PRN PRN Reason: PAIN LEVEL 1-5 Oxycodone HCl (Roxicodone -) 10 mg PO Q4H PRN PRN Reason: PAIN LEVEL 6-10 - Objective Vital Signs: Vital Signs Temperature 98.4 F 12/14/17 10:00 Pulse Rate 72 12/14/17 12:00 Respiratory Rate 18 12/14/17 12:00 Blood Pressure 145/87 12/14/17 12:00 O2 Sat by Pulse Oximetry (%) 99 12/14/17 10:00 Constitutional: Yes: Well Nourished, No Distress, Calm Cardiovascular: Yes: Regular Rate and Rhythm Respiratory: Yes: Regular Gastrointestinal: Yes: Normal Bowel Sounds, Soft Labs: CBC, BMP 12/14/17 05:05 12/14/17 05:05
[2017-12-14] MEDS ORDERED: DEXTROSE 5%-WATER - 100 ML IVPB ONE (17:23)
[2017-12-14] MEDS: CHLORHEXIDINE GLUCONATE 4% CLEANSER FOR DECOLONIZATION TP SCH (21:24)
[2017-12-15] MEDS ORDERED: PIPERACILLIN/TAZOBACTAM 3.375 GM VIAL IVPB ONE ×3 (01:53→17:16)
[2017-12-15] MEDS ORDERED: DEXTROSE 5%-WATER - 50 ML IVPB ONE ×3 (01:53→17:16)
[2017-12-15] MEDS: PIPERACILLIN/TAZOB 3.375 GM 3.375 GM in DEXTROSE 5%-WATER - 50 ML IVPB SCH ×3 (02:00→17:20)
[2017-12-15 05:48] LABS: HEMATOCRIT 28.7 % (35.4-49); HEMOGLOBIN 9.5 GM/dL (11.7-16.9); MCHC 33.3 g/dl (32.0-35.9); PLATELET COUNT 189 K/MM3 (134-434); RBC 3.29 M/mm3 (4.00-5.60); RDW 16.6 % (11.9-15.9); WHITE BLOOD COUNT 8.3 K/mm3 (4.0-10.0)
[2017-12-15 06:22] LABS: ANION GAP 6 MMOL/L (8-16); BLOOD UREA NITROGEN 12 mg/dL (7-18); CALCIUM 7.8 mg/dL (8.5-10.1); CHLORIDE 110 mmol/L (98-107); CO2 25 mmol/L (21-32); CREATININE 0.9 mg/dL (0.55-1.3); GLUCOSE,RANDOM 82 mg/dL (74-106); SODIUM 141 mmol/L (136-145)
--- NOTE | 2017-12-15 08:13 | PN ---
Progress Note, Physician History of Present Illness: feels better - Current Medication List Current Medications: Active Medications Acetaminophen (Tylenol -) 650 mg PO Q6H PRN PRN Reason: FEVER Chlorhexidine Gluconate (Hibiclens For Decolonization -) 1 applic TP HS KELLEY Last Admin: 12/14/17 21:24 Dose: 1 applic Sodium Chloride (Normal Saline -) 1,000 mls @ 75 mls/hr IV ASDIR KELLEY Last Admin: 12/14/17 23:00 Dose: 75 mls/hr Piperacillin Sod/Tazobactam (Sod 3.375 gm/ Dextrose) 50 mls @ 100 mls/hr IVPB Q8H-IV KELLEY; Protocol Last Admin: 12/15/17 02:00 Dose: 100 mls/hr Mupirocin (Bactroban Ointment (For Decolonization) -) 1 applic NS BID KELLEY Stop: 12/17/17 21:59 Last Admin: 12/14/17 21:24 Dose: 1 applic Oxycodone HCl (Roxicodone -) 5 mg PO Q4H PRN PRN Reason: PAIN LEVEL 1-5 Oxycodone HCl (Roxicodone -) 10 mg PO Q4H PRN PRN Reason: PAIN LEVEL 6-10 - Objective Vital Signs: Vital Signs Temperature 98.1 F 12/15/17 06:00 Pulse Rate 65 12/15/17 06:00 Respiratory Rate 24 H 12/15/17 06:00 Blood Pressure 143/96 12/15/17 06:00 O2 Sat by Pulse Oximetry (%) 96 12/15/17 04:00 Cardiovascular: Yes: S1, S2 Respiratory: Yes: Regular, CTA Bilaterally Gastrointestinal: Yes: Normal Bowel Sounds, Soft Labs: CBC, BMP 12/15/17 05:30 12/15/17 05:30 Problem List - Problems (1) Sepsis due to urinary tract infection Assessment/Plan: Patient developed fever of 101F, tachycardia with lactic acidosis. -Abx per ID Microbiology 12/12/17 19:15 Blood - Peripheral Venous Blood Culture - Preliminary NO GROWTH OBTAINED AFTER 48 HOURS, INCUBATION TO CONTINUE FOR 3 DAYS. 12/12/17 18:00 Blood - Peripheral Venous Blood Culture - Preliminary NO GROWTH OBTAINED AFTER 48 HOURS, INCUBATION TO CONTINUE FOR 3 DAYS. 12/11/17 09:30 Blood - Peripheral Venous Blood Culture - Final Enterococcus Faecalis Citrobacter Koseri 12/11/17 09:45 Blood - Peripheral Venous Blood Culture - Final Enterococcus Faecalis Citrobacter Koseri Code(s): A41.9 - SEPSIS, UNSPECIFIED ORGANISM; N39.0 - URINARY TRACT INFECTION, SITE NOT SPECIFIED (2) BPH (benign prostatic hyperplasia) Assessment/Plan: s/p Greenlight laser surgery, post op care per urology. Code(s): N40.0 - BENIGN PROSTATIC HYPERPLASIA WITHOUT LOWER URINRY TRACT SYMP (3) Malignant melanoma of skin of abdomen Code(s): C43.59 - MALIGNANT MELANOMA OF OTHER PART OF TRUNK
--- NOTE | 2017-12-15 09:27 | PN ---
Progress Note (short form) - Note Progress Note: Neurology CHIEF COMPLAINT: AMS HISTORY OF PRESENT ILLNESS: 76 year old male with a significant past medical history of malignant melanoma s /p right upper back malignant wide excision, resection of a LLQ melanoma, hypertension and anxiety. Patient was admitted and completed Greenlight laser for BPH under general anesthesia by Dr. Devlin, who requested consult for AMS. The patient developed fevers with chills post op and was noted to have an elevated lactic acid. ID was consulted and patient was started on Zosyn. he also demonstrated confusion and I was consulted for further evaluation. He was seen at bedside with family members including one of them who is a very pleasant nurse. She reports his baseline is alert and oriented and completely independent. He was able to tell me the name of the president as well. He had difficulty remembering the name of the Procurement Engineer. He was transferred to ICU where he was under critical care monitoring during the weekend. His change in mental status may be multifactorial and related to anesthesia versus underlying infection which is being addressed by infectious disease. Remains on Zosyn. Seen in ICU this AM and he is not lethargic or somnolent during my encounter and is more alert and interactive. Knows he's in the hospital, knows, date. Ct head was reviewed and without acute changes. No Known Allergies Allergy (Verified 12/09/17 13:56) Active Medications Acetaminophen (Tylenol -) 650 mg PO Q6H PRN PRN Reason: FEVER Chlorhexidine Gluconate (Hibiclens For Decolonization -) 1 applic TP HS KELLEY Last Admin: 12/14/17 21:24 Dose: 1 applic Sodium Chloride (Normal Saline -) 1,000 mls @ 75 mls/hr IV ASDIR KELLEY Last Admin: 12/14/17 23:00 Dose: 75 mls/hr Piperacillin Sod/Tazobactam (Sod 3.375 gm/ Dextrose) 50 mls @ 100 mls/hr IVPB Q8H-IV KELLEY; Protocol Last Admin: 12/15/17 02:00 Dose: 100 mls/hr Mupirocin (Bactroban Ointment (For Decolonization) -) 1 applic NS BID KELLEY Stop: 12/17/17 21:59 Last Admin: 12/14/17 21:24 Dose: 1 applic Oxycodone HCl (Roxicodone -) 5 mg PO Q4H PRN PRN Reason: PAIN LEVEL 1-5 Oxycodone HCl (Roxicodone -) 10 mg PO Q4H PRN PRN Reason: PAIN LEVEL 6-10 PHYSICAL EXAMINATION Vital Signs Period Temp Pulse Resp BP Sys/Dalton Pulse Ox Last 24 Hr 97.8 F-98.9 F 61-78 15-26 142-168/75-96 96-99 GENERAL: Awake, alert, oriented x 2, slow to respond, but answers questions appropriately HEAD: Normal with no signs of trauma. EYES: Pupils equal, round and reactive to light, extraocular movements intact, sclera anicteric, conjunctiva clear. No lid lag. EARS, NOSE, THROAT: Ears normal, nares patent, oropharynx clear without exudates. Moist mucous membranes. NECK: Normal range of motion, supple without lymphadenopathy, JVD, or masses. LUNGS: Breath sounds equal, clear to auscultation bilaterally. HEART: Regular rate and rhythm ABDOMEN: Soft, nontender, not distended, normoactive bowel sounds, no guarding, no rebound, no masses. PELVIC: miranda draining dark tea colored urine. Swollen scrotum MUSCULOSKELETAL: Normal range of motion at all joints. No bony deformities or tenderness. No CVA tenderness. UPPER EXTREMITIES: No peripheral edema. LOWER EXTREMITIES:. No peripheral edema. NEUROLOGICAL: Normal speech, facial symmetry, CN intact, moves all extremities grossly SKIN: Warm, dry, normal turgor, no rashes or lesions noted, normal capillary refill. CBCD WBC 8.3 K/mm3 (4.0-10.0) 12/15/17 05:30 RBC 3.29 M/mm3 (4.00-5.60) L 12/15/17 05:30 Hgb 9.5 GM/dL (11.7-16.9) L 12/15/17 05:30 Hct 28.7 % (35.4-49) L 12/15/17 05:30 MCV 87.0 fl (80-96) 12/15/17 05:30 MCHC 33.3 g/dl (32.0-35.9) 12/15/17 05:30 RDW 16.6 % (11.9-15.9) H 12/15/17 05:30 Plt Count 189 K/MM3 (134-434) 12/15/17 05:30 MPV 10.0 fl (7.5-11.1) 12/15/17 05:30 CMP Sodium 141 mmol/L (136-145) 12/15/17 05:30 Potassium 4.0 mmol/L (3.5-5.1) 12/15/17 05:30 Chloride 110 mmol/L (98-107) H 12/15/17 05:30 Carbon Dioxide 25 mmol/L (21-32) 12/15/17 05:30 Anion Gap 6 MMOL/L (8-16) L 12/15/17 05:30 BUN 12 mg/dL (7-18) 12/15/17 05:30 Creatinine 0.9 mg/dL (0.55-1.3) 12/15/17 05:30 Creat Clearance w eGFR > 60 (>60) 12/15/17 05:30 Random Glucose 82 mg/dL (74-106) 12/15/17 05:30 Calcium 7.8 mg/dL (8.5-10.1) L 12/15/17 05:30 Total Bilirubin 0.5 mg/dL (0.2-1) 12/14/17 05:05 AST 32 U/L (15-37) 12/14/17 05:05 ALT 23 U/L (13-61) 12/14/17 05:05 Alkaline Phosphatase 107 U/L (45-117) 12/14/17 05:05 Total Protein 5.6 g/dl (6.4-8.2) L 12/14/17 05:05 Albumin 2.3 g/dl (3.4-5.0) L 12/14/17 05:05 CT head reviewed ASSESSMENT/PLAN: 76 year old male with a significant past medical history of malignant melanoma s /p right upper back malignant wide excision, resection of a LLQ melanoma, hypertension and anxiety. Patient was admitted and completed Greenlight laser for BPH under general anesthesia by Dr. Devlin, who requested consult for AMS. The patient developed fevers with chills post op and was noted to have an elevated lactic acid. ID was consulted and patient was started on Zosyn. he also demonstrated confusion and I was consulted for further evaluation. He was seen at bedside with family members including one of them who is a very pleasant nurse. She reports his baseline is alert and oriented and completely independent. During my evaluation, he was not able to tell me the date but did know that he was in the hospital and was able to tell me the name. He was able to tell me the name of the president as well. He had difficulty remembering the name of the Procurement Engineer. His change in mental status may be multifactorial and related to anesthesia versus underlying infection which is being addressed by infectious disease. He is not lethargic or somnolent during my encounter and was able to maintain attention today More interactive Ct without acute changes Maintain adequate hydration, monitor blood pressure, maintain normotensive range Reorientation recommended Xanax being held due to concern of mental status, would recommend reinitiating when he is more oriented because he does have significant anxiety that was apparent during my encounter follow-up ID recommendations, monitor white count Monitor lactic acid level Is improving in mental status, continue supportive care Critical care time 35 mins
[2017-12-15] MEDS: MUPIROCIN 2% TOPICAL OINTMENT FOR DECOLONIZATION NS SCH ×2 (09:29→21:22)
--- NOTE | 2017-12-15 12:36 | PN ---
Teaching Attending Note Name of Resident: José Wells ATTENDING PHYSICIAN STATEMENT I saw and evaluated the patient. I reviewed the resident's note and discussed the case with the resident. I agree with the resident's findings and plan as documented. SUBJECTIVE: Patient seen and examined in the ICU. Awake and alert. No CP or SOB. No acute events overnight. Intake & Output 12/12/17 12/13/17 12/14/17 12/15/17 23:59 23:59 23:59 23:59 Intake Total 2600 3380 2225 775 Output Total 800 4200 2700 2700 Balance 1800 -820 -475 -1925 Weight 156 lb 156 lb 2 oz Last Vital Signs Temp Pulse Resp BP Pulse Ox 98.4 F 78 18 163/89 96 12/15/17 10:00 12/15/17 12:00 12/15/17 12:00 12/15/17 12:00 12/15/17 09:00 Active Medications Acetaminophen (Tylenol -) 650 mg PO Q6H PRN PRN Reason: FEVER Chlorhexidine Gluconate (Hibiclens For Decolonization -) 1 applic TP HS KELLEY Last Admin: 12/14/17 21:24 Dose: 1 applic Sodium Chloride (Normal Saline -) 1,000 mls @ 75 mls/hr IV ASDIR KELLEY Last Admin: 12/14/17 23:00 Dose: 75 mls/hr Piperacillin Sod/Tazobactam (Sod 3.375 gm/ Dextrose) 50 mls @ 100 mls/hr IVPB Q8H-IV KELLEY; Protocol Last Admin: 12/15/17 09:28 Dose: 100 mls/hr Mupirocin (Bactroban Ointment (For Decolonization) -) 1 applic NS BID KELLEY Stop: 12/17/17 21:59 Last Admin: 12/15/17 09:29 Dose: 1 applic Oxycodone HCl (Roxicodone -) 5 mg PO Q4H PRN PRN Reason: PAIN LEVEL 1-5 Oxycodone HCl (Roxicodone -) 10 mg PO Q4H PRN PRN Reason: PAIN LEVEL 6-10 Constitutional: Yes: Awake alert, NAD Cardiovascular: Yes: Regular, no m/r/g Respiratory: Yes: On Nasal O2, diminished at the bases, few crackles Gastrointestinal: Yes: WNL Genitourinary: Yes: Other Musculoskeletal: Yes: WNL Extremities: Yes: WNL Edema: None Peripheral Pulses WNL: Yes Integumentary: Yes: WNL Wound/Incision: Yes: Clean/Dry Neurological: Yes: non-focal , alert and oriented Psychiatric: Yes: Other Laboratory Results - last 24 hr 12/15/17 12/15/17 05:30 05:30 WBC 8.3 RBC 3.29 L Hgb 9.5 L Hct 28.7 L MCV 87.0 MCH 29.0 MCHC 33.3 RDW 16.6 H Plt Count 189 MPV 10.0 Sodium 141 Potassium 4.0 Chloride 110 H Carbon Dioxide 25 Anion Gap 6 L BUN 12 Creatinine 0.9 Creat Clearance w eGFR > 60 Random Glucose 82 Calcium 7.8 L Problem List - Problems (1) Sepsis due to urinary tract infection Code(s): A41.9 - SEPSIS, UNSPECIFIED ORGANISM; N39.0 - URINARY TRACT INFECTION, SITE NOT SPECIFIED (2) Basal cell carcinoma (BCC) of upper back Code(s): C44.519 - BASAL CELL CARCINOMA OF SKIN OF OTHER PART OF TRUNK (3) Malignant melanoma of skin of abdomen Code(s): C43.59 - MALIGNANT MELANOMA OF OTHER PART OF TRUNK Assessment/Plan ABX per ID O2 as needed Pain control Incentive Spirometry PO as tolerated Floor Dr Medina
--- NOTE | 2017-12-15 13:23 | PN ---
Progress Note, Physician History of Present Illness: Pt seen and examined at bedside. He is awake and alert. He denies shortness of breath. His renal function has improved. - Current Medication List Current Medications: Active Medications Acetaminophen (Tylenol -) 650 mg PO Q6H PRN PRN Reason: FEVER Chlorhexidine Gluconate (Hibiclens For Decolonization -) 1 applic TP HS KELLEY Last Admin: 12/14/17 21:24 Dose: 1 applic Sodium Chloride (Normal Saline -) 1,000 mls @ 75 mls/hr IV ASDIR KELLEY Last Admin: 12/14/17 23:00 Dose: 75 mls/hr Piperacillin Sod/Tazobactam (Sod 3.375 gm/ Dextrose) 50 mls @ 100 mls/hr IVPB Q8H-IV KELLEY; Protocol Last Admin: 12/15/17 09:28 Dose: 100 mls/hr Mupirocin (Bactroban Ointment (For Decolonization) -) 1 applic NS BID KELLEY Stop: 12/17/17 21:59 Last Admin: 12/15/17 09:29 Dose: 1 applic Oxycodone HCl (Roxicodone -) 5 mg PO Q4H PRN PRN Reason: PAIN LEVEL 1-5 Oxycodone HCl (Roxicodone -) 10 mg PO Q4H PRN PRN Reason: PAIN LEVEL 6-10 - Objective Vital Signs: Vital Signs Temperature 98.4 F 12/15/17 10:00 Pulse Rate 78 12/15/17 12:00 Respiratory Rate 18 12/15/17 12:00 Blood Pressure 163/89 12/15/17 12:00 O2 Sat by Pulse Oximetry (%) 96 12/15/17 09:00 Constitutional: Yes: Calm Eyes: Yes: Conjunctiva Clear HENT: Yes: Atraumatic Cardiovascular: Yes: Regular Rate and Rhythm, S1, S2 Respiratory: Yes: CTA Bilaterally Gastrointestinal: Yes: Normal Bowel Sounds, Soft Genitourinary: Yes: WNL Musculoskeletal: Yes: WNL Edema: No Neurological: Yes: Oriented Labs: CBC, BMP 12/15/17 05:30 12/15/17 05:30 Problem List - Problems (1) LORY (acute kidney injury) Code(s): N17.9 - ACUTE KIDNEY FAILURE, UNSPECIFIED (2) BPH (benign prostatic hyperplasia) Code(s): N40.0 - BENIGN PROSTATIC HYPERPLASIA WITHOUT LOWER URINRY TRACT SYMP (3) HTN (hypertension) Code(s): I10 - ESSENTIAL (PRIMARY) HYPERTENSION (4) Anxiety Code(s): F41.9 - ANXIETY DISORDER, UNSPECIFIED (5) Lactic acid acidosis Code(s): E87.2 - ACIDOSIS (6) Sepsis due to urinary tract infection Code(s): A41.9 - SEPSIS, UNSPECIFIED ORGANISM; N39.0 - URINARY TRACT INFECTION, SITE NOT SPECIFIED (7) Basal cell carcinoma (BCC) of upper back Code(s): C44.519 - BASAL CELL CARCINOMA OF SKIN OF OTHER PART OF TRUNK Assessment/Plan Current Medications Generic Name Dose Route Start Last Admin Trade Name Freq PRN Reason Stop Dose Admin Acetaminophen 650 mg 12/12/17 15:06 Tylenol - PO Q6H PRN FEVER Chlorhexidine Gluconate 1 applic 12/12/17 22:00 12/14/17 21:24 Hibiclens For Decolonization - TP 1 applic HS KELLEY Administration Sodium Chloride 1,000 mls @ 75 mls/hr 12/12/17 14:45 12/14/17 23:00 Normal Saline - IV 75 mls/hr ASDIR KELLEY Administration Piperacillin Sod/Tazobactam 50 mls @ 100 mls/hr 12/12/17 18:00 12/15/17 09:28 Sod 3.375 gm/ Dextrose IVPB 100 mls/hr Q8H-IV KELLEY Administration Protocol Mupirocin 1 applic 12/12/17 22:00 12/15/17 09:29 Bactroban Ointment (For Decolonization) - NS 12/17/17 21:59 1 applic BID KELLEY Administration Oxycodone HCl 5 mg 12/12/17 15:06 Roxicodone - PO Q4H PRN PAIN LEVEL 1-5 Oxycodone HCl 10 mg 12/12/17 15:06 Roxicodone - PO Q4H PRN PAIN LEVEL 6-10 Microbiology 12/11/17 09:45 Blood - Peripheral Venous Blood Culture - Final Enterococcus Faecalis Citrobacter Koseri 12/11/17 09:30 Blood - Peripheral Venous Blood Culture - Final Enterococcus Faecalis Citrobacter Koseri 12/12/17 19:15 Blood - Peripheral Venous Blood Culture - Preliminary NO GROWTH OBTAINED AFTER 48 HOURS, INCUBATION TO CONTINUE FOR 3 DAYS. 12/12/17 18:00 Blood - Peripheral Venous Blood Culture - Preliminary NO GROWTH OBTAINED AFTER 48 HOURS, INCUBATION TO CONTINUE FOR 3 DAYS. Impression 1. LORY 2. sepsis 3. bacteremia 4. hx htn 5. basal cell cancer 6. melanoma resected 7. anxiety 8. bph s/p greenlight [place] procedure on the 10 12. UTI Plan - renal function improved - clinical status is improved - bp is improved, consider restarting bp meds - cont abx - agree with holding fluids - repeat blood cultures are negative - discusses with ICU team - will follow Dr Castillo
--- NOTE | 2017-12-15 13:28 | PN ---
Progress Note, Physician History of Present Illness: doing well no issues in the room patient feels better - Current Medication List Current Medications: Active Medications Acetaminophen (Tylenol -) 650 mg PO Q6H PRN PRN Reason: FEVER Chlorhexidine Gluconate (Hibiclens For Decolonization -) 1 applic TP HS KELLEY Last Admin: 12/14/17 21:24 Dose: 1 applic Sodium Chloride (Normal Saline -) 1,000 mls @ 75 mls/hr IV ASDIR KELLEY Last Admin: 12/14/17 23:00 Dose: 75 mls/hr Piperacillin Sod/Tazobactam (Sod 3.375 gm/ Dextrose) 50 mls @ 100 mls/hr IVPB Q8H-IV KELLEY; Protocol Last Admin: 12/15/17 09:28 Dose: 100 mls/hr Metoprolol Tartrate (Lopressor -) 25 mg PO DAILY KELLEY Mupirocin (Bactroban Ointment (For Decolonization) -) 1 applic NS BID KELLEY Stop: 12/17/17 21:59 Last Admin: 12/15/17 09:29 Dose: 1 applic Oxycodone HCl (Roxicodone -) 5 mg PO Q4H PRN PRN Reason: PAIN LEVEL 1-5 Oxycodone HCl (Roxicodone -) 10 mg PO Q4H PRN PRN Reason: PAIN LEVEL 6-10 - Objective Vital Signs: Vital Signs Temperature 98.4 F 12/15/17 10:00 Pulse Rate 78 12/15/17 12:00 Respiratory Rate 18 12/15/17 12:00 Blood Pressure 163/89 12/15/17 12:00 O2 Sat by Pulse Oximetry (%) 96 12/15/17 09:00 Constitutional: Yes: No Distress, Calm Cardiovascular: Yes: Regular Rate and Rhythm Respiratory: Yes: Regular, CTA Bilaterally Gastrointestinal: Yes: Normal Bowel Sounds, Soft Musculoskeletal: Yes: WNL Extremities: Yes: WNL Neurological: Yes: Alert, Oriented Psychiatric: Yes: Alert, Oriented Labs: CBC, BMP 12/15/17 05:30 12/15/17 05:30 Assessment/Plan Problem List - Problems (1) Sepsis due to urinary tract infection Code(s): A41.9 - SEPSIS, UNSPECIFIED ORGANISM; N39.0 - URINARY TRACT INFECTION, SITE NOT SPECIFIED (2) Basal cell carcinoma (BCC) of upper back Code(s): C44.519 - BASAL CELL CARCINOMA OF SKIN OF OTHER PART OF TRUNK (3) Malignant melanoma of skin of abdomen Code(s): C43.59 - MALIGNANT MELANOMA OF OTHER PART OF TRUNK 4 leukocytosis 5 altered mental status plan cx report noted continue zosyn close watch wbc normalized rest as per icu cc 40 min
[2017-12-15] MEDS ORDERED: METOPROLOL TARTRATE 25 MG TABLET (FP) PO SCH (13:30)
--- NOTE | 2017-12-15 13:58 | PN ---
Physical Exam: SUBJECTIVE: Patient seen and examined at bedside. Fully oriented and without complaints. OBJECTIVE: Vital Signs Period Temp Pulse Resp BP Sys/Dalton Pulse Ox Last 24 Hr 97.8 F-98.9 F 61-78 15-26 142-168/75-96 96-99 GENERAL: A&Ox3, NAD HEAD: NC/AT EYES: PERRLA, EOMI ENT: MMM NECK: Trachea midline, full range of motion, supple. LUNGS: CTA b/l HEART: RRR no m/r/g ABDOMEN: +bs, soft, NT, ND : miranda in place EXTREMITIES: 2+ pulses, warm, well-perfused, no edema. 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 Gait not observed. PSYCH: Normal mood, normal affect. Laboratory Results - last 24 hr 12/15/17 12/15/17 05:30 05:30 WBC 8.3 RBC 3.29 L Hgb 9.5 L Hct 28.7 L MCV 87.0 MCH 29.0 MCHC 33.3 RDW 16.6 H Plt Count 189 MPV 10.0 Sodium 141 Potassium 4.0 Chloride 110 H Carbon Dioxide 25 Anion Gap 6 L BUN 12 Creatinine 0.9 Creat Clearance w eGFR > 60 Random Glucose 82 Calcium 7.8 L Active Medications Generic Name Dose Route Start Last Admin Trade Name Jarvisq PRN Reason Stop Dose Admin Acetaminophen 650 mg 12/12/17 15:06 Tylenol - PO Q6H PRN FEVER Chlorhexidine Gluconate 1 applic 12/12/17 22:00 12/14/17 21:24 Hibiclens For Decolonization - TP 1 applic HS KELLEY Administration Sodium Chloride 1,000 mls @ 75 mls/hr 12/12/17 14:45 12/14/17 23:00 Normal Saline - IV 75 mls/hr ASDIR KELLEY Administration Piperacillin Sod/Tazobactam 50 mls @ 100 mls/hr 12/12/17 18:00 12/15/17 09:28 Sod 3.375 gm/ Dextrose IVPB 100 mls/hr Q8H-IV KELLEY Administration Protocol Metoprolol Tartrate 25 mg 12/15/17 13:30 Lopressor - PO DAILY KELLEY Mupirocin 1 applic 12/12/17 22:00 12/15/17 09:29 Bactroban Ointment (For Decolonization) - NS 12/17/17 21:59 1 applic BID KELLEY Administration Oxycodone HCl 5 mg 12/12/17 15:06 Roxicodone - PO Q4H PRN PAIN LEVEL 1-5 Oxycodone HCl 10 mg 12/12/17 15:06 Roxicodone - PO Q4H PRN PAIN LEVEL 6-10 ASSESSMENT/PLAN: 76 y/o M w/ PMHx HTN, Anxiety, BPH (POD #3 s/p greenlight laser procedure), s/p resection of LLQ basal cell carcinoma, 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, 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 w/ sepsis s/p greenlight laser #Sepsis -clinically improved -lactic acidosis resolved, WBC wnl -repeat blood Cx negative -cont Zosyn w/ ID on board #Urologic -DC [facility] following #LORY -resolved -nephrology following -NS @ 75 -Hold nephrotoxic agents #Anemia -monitor H/H -transfuse if HgB is below 7 #HTN -restarted home metoprolol as BP was elevated on recommendation of nephrology #F/E/N -start NS @ 75ml/hr -monitor lytes -sodium controlled #DVT Ppx -SCDs #dispo -transfer to med-surg Visit type - Emergency Visit Emergency Visit: No - New Patient This patient is new to me today: Yes Date on this admission: 12/15/17 - Critical Care Critical Care patient: Yes Total Critical Care Time (in minutes): 40 Critical Care Statement: The care of this patient involved high complexity decision making to prevent further life threatening deterioration of the patient 's condition and/or to evaluate & treat vital organ system(s) failure or risk of failure.
[2017-12-15] MEDS ORDERED: hydrALAZINE HCL 20 MG/ML VIAL IVPUSH ONE (17:10)
[2017-12-15] MEDS ORDERED: hydrALAZINE HCL 20 MG/ML VIAL ONE (17:16)
[2017-12-15] MEDS: SODIUM CHLORIDE 1,000 ML IV SCH (17:21)
[2017-12-15] MEDS ORDERED: METOPROLOL TARTRATE 5 MG/5 ML VIAL IVPUSH ONE (20:45)
[2017-12-15] MEDS: CHLORHEXIDINE GLUCONATE 4% CLEANSER FOR DECOLONIZATION TP SCH (21:22)
[2017-12-15] MEDS ORDERED: METOPROLOL TARTRATE 25 MG TABLET (FP) PO ONE (22:59)
[2017-12-16] MEDS ORDERED: ACETAMINOPHEN 325 MG TABLET (FP) PO PRN (02:23)
[2017-12-16] MEDS ORDERED: PIPERACILLIN/TAZOBACTAM 3.375 GM VIAL IVPB ONE ×3 (02:48→17:02)
[2017-12-16] MEDS ORDERED: DEXTROSE 5%-WATER - 50 ML IVPB ONE ×3 (02:48→17:02)
[2017-12-16] MEDS: PIPERACILLIN/TAZOB 3.375 GM 3.375 GM in DEXTROSE 5%-WATER - 50 ML IVPB SCH ×3 (02:50→17:05)
[2017-12-16 06:45] LABS: HEMATOCRIT 32.8 % (35.4-49); MCH 28.8 pg (25.7-33.7); MCHC 33.4 g/dl (32.0-35.9); MEAN CELL VOLUME 86.1 fl (80-96); MEAN PLT VOLUME 9.9 fl (7.5-11.1); PLATELET COUNT 222 K/MM3 (134-434); RBC 3.81 M/mm3 (4.00-5.60); RDW 16.4 % (11.9-15.9); WHITE BLOOD COUNT 9.6 K/mm3 (4.0-10.0)
[2017-12-16 07:17] LABS: ANION GAP 9 MMOL/L (8-16); BLOOD UREA NITROGEN 12 mg/dL (7-18); CALCIUM 8.6 mg/dL (8.5-10.1); CHLORIDE 109 mmol/L (98-107); CO2 24 mmol/L (21-32); CREATININE 0.8 mg/dL (0.55-1.3); GLUCOSE,RANDOM 88 mg/dL (74-106); PHOSPHOROUS 3.4 mg/dL (2.5-4.9); POTASSIUM 3.9 mmol/L (3.5-5.1); SODIUM 142 mmol/L (136-145)
--- NOTE | 2017-12-16 09:20 | PN ---
Progress Note (short form) - Note Progress Note: Neurology CHIEF COMPLAINT: AMS HISTORY OF PRESENT ILLNESS: 76 year old male with a significant past medical history of malignant melanoma s /p right upper back malignant wide excision, resection of a LLQ melanoma, hypertension and anxiety. Patient was admitted and completed Greenlight laser for BPH under general anesthesia by Dr. Devlin, who requested consult for AMS. The patient developed fevers with chills post op and was noted to have an elevated lactic acid. ID was consulted and patient was started on Zosyn. he also demonstrated confusion and I was consulted for further evaluation. He was seen at bedside with family members including one of them who is a very pleasant nurse. She reports his baseline is alert and oriented and completely independent. He was able to tell me the name of the president as well. He had difficulty remembering the name of the [employer]. He was transferred to ICU where he was under critical care monitoring during the weekend. His change in mental status thought to be multifactorial and related to anesthesia versus underlying infection which is being addressed by infectious disease. Remains on Zosyn. Downgraded from ICU to floor status and remains awake, alert, interactive. Not confused or somnolent during my encounter. Knows he's in the hospital, knows date (though said December at first, but corrected to Nov). Ct head was reviewed and without acute changes. Active Medications Acetaminophen (Tylenol -) 650 mg PO Q6H PRN PRN Reason: FEVER Chlorhexidine Gluconate (Hibiclens For Decolonization -) 1 applic TP HS KELLEY Piperacillin Sod/Tazobactam (Sod 3.375 gm/ Dextrose) 50 mls @ 100 mls/hr IVPB Q8H-IV KELLEY; Protocol Last Admin: 12/16/17 02:50 Dose: 100 mls/hr Metoprolol Tartrate (Lopressor -) 25 mg PO BID KELLEY Mupirocin (Bactroban Ointment (For Decolonization) -) 1 applic NS BID KELLEY Stop: 12/17/17 21:59 PHYSICAL EXAMINATION Vital Signs Period Temp Pulse Resp BP Sys/Dalton Pulse Ox Last 24 Hr 98 F-98.7 F 67-83 16-29 149-197/69-109 97-97 GENERAL: Awake, alert, oriented x 2, slow to respond, but answers questions appropriately HEAD: Normal with no signs of trauma. EYES: Pupils equal, round and reactive to light, extraocular movements intact, sclera anicteric, conjunctiva clear. No lid lag. EARS, NOSE, THROAT: Ears normal, nares patent, oropharynx clear without exudates. Moist mucous membranes. NECK: Normal range of motion, supple without lymphadenopathy, JVD, or masses. LUNGS: Breath sounds equal, clear to auscultation bilaterally. HEART: Regular rate and rhythm ABDOMEN: Soft, nontender, not distended, normoactive bowel sounds, no guarding, no rebound, no masses. PELVIC: miranda draining dark tea colored urine. Swollen scrotum MUSCULOSKELETAL: Normal range of motion at all joints. No bony deformities or tenderness. No CVA tenderness. UPPER EXTREMITIES: No peripheral edema. LOWER EXTREMITIES:. No peripheral edema. NEUROLOGICAL: Normal speech, CN intact, moves all extremities grossly, sensory intact, finger to nose normal, gait deferred SKIN: Warm, dry, normal turgor, no rashes or lesions noted, normal capillary refill. CBCD WBC 9.6 K/mm3 (4.0-10.0) 12/16/17 05:30 RBC 3.81 M/mm3 (4.00-5.60) L 12/16/17 05:30 Hgb 11.0 GM/dL (11.7-16.9) L 12/16/17 05:30 Hct 32.8 % (35.4-49) L 12/16/17 05:30 MCV 86.1 fl (80-96) 12/16/17 05:30 MCHC 33.4 g/dl (32.0-35.9) 12/16/17 05:30 RDW 16.4 % (11.9-15.9) H 12/16/17 05:30 Plt Count 222 K/MM3 (134-434) 12/16/17 05:30 MPV 9.9 fl (7.5-11.1) 12/16/17 05:30 CMP Sodium 142 mmol/L (136-145) 12/16/17 05:30 Potassium 3.9 mmol/L (3.5-5.1) 12/16/17 05:30 Chloride 109 mmol/L (98-107) H 12/16/17 05:30 Carbon Dioxide 24 mmol/L (21-32) 12/16/17 05:30 Anion Gap 9 MMOL/L (8-16) 12/16/17 05:30 BUN 12 mg/dL (7-18) 12/16/17 05:30 Creatinine 0.8 mg/dL (0.55-1.3) 12/16/17 05:30 Creat Clearance w eGFR > 60 (>60) 12/16/17 05:30 Calcium 8.6 mg/dL (8.5-10.1) 12/16/17 05:30 Total Bilirubin 0.5 mg/dL (0.2-1) 12/14/17 05:05 AST 32 U/L (15-37) 12/14/17 05:05 ALT 23 U/L (13-61) 12/14/17 05:05 Alkaline Phosphatase 107 U/L (45-117) 12/14/17 05:05 Total Protein 5.6 g/dl (6.4-8.2) L 12/14/17 05:05 Albumin 2.3 g/dl (3.4-5.0) L 12/14/17 05:05 CT head reviewed ASSESSMENT/PLAN: 76 year old male with a significant past medical history of malignant melanoma s /p right upper back malignant wide excision, resection of a LLQ melanoma, hypertension and anxiety. Patient was admitted and completed Greenlight laser for BPH under general anesthesia by Dr. Devlin, who requested consult for AMS. The patient developed fevers with chills post op and was noted to have an elevated lactic acid. ID was consulted and patient was started on Zosyn. he also demonstrated confusion and I was consulted for further evaluation. He was seen at bedside with family members including one of them who is a very pleasant nurse. She reports his baseline is alert and oriented and completely independent. During my evaluation, he was not able to tell me the date but did know that he was in the hospital and was able to tell me the name. He was able to tell me the name of the president as well. He had difficulty remembering the name of the [employer]. His change in mental status may be multifactorial and related to anesthesia versus underlying infection which is being addressed by infectious disease. He is not lethargic or somnolent during my encounter and was able to maintain attention today More interactive Ct without acute changes Maintain adequate hydration, monitor blood pressure, maintain normotensive range Reorientation recommended Xanax being held due to concern of mental status, can restart as mental status stabilized follow-up ID recommendations, monitor white count Is improving in mental status, continue supportive care Downgraded to floor, stable DVT ppx
[2017-12-16] MEDS: METOPROLOL TARTRATE 25 MG TABLET (FP) PO SCH ×2 (09:58→22:03)
[2017-12-16] MEDS ORDERED: MUPIROCIN 2% TOPICAL OINTMENT FOR DECOLONIZATION NS SCH (10:00)
--- NOTE | 2017-12-16 11:26 | PN ---
LESLEY Arellano Note History of Present Illness: Pt alert lance po oob - Objective Vital Signs: Vital Signs Temperature 99.2 F 12/16/17 10:00 Pulse Rate 66 12/16/17 10:00 Respiratory Rate 33 H 12/16/17 10:00 Blood Pressure 141/87 12/16/17 10:00 O2 Sat by Pulse Oximetry (%) 98 12/16/17 09:00 Labs/Additional Data: CBC, BMP 12/16/17 05:30 12/16/17 05:30 Imaging - Results Cat Scan: Report Reviewed Ultrasound: Report Reviewed Problem List - Problems (1) Sepsis due to urinary tract infection Code(s): A41.9 - SEPSIS, UNSPECIFIED ORGANISM; N39.0 - URINARY TRACT INFECTION, SITE NOT SPECIFIED (2) Sepsis Assessment/Plan: Resolving sepsis Doing well Miranda to sd urine clear D/C miranda when tx to floor Code(s): A41.9 - SEPSIS, UNSPECIFIED ORGANISM
--- NOTE | 2017-12-16 15:18 | PN ---
Progress Note, Physician History of Present Illness: improved says he is doing better feels he is back to himself - Current Medication List Current Medications: Active Medications Acetaminophen (Tylenol -) 650 mg PO Q6H PRN PRN Reason: FEVER Chlorhexidine Gluconate (Hibiclens For Decolonization -) 1 applic TP HS KELLEY Piperacillin Sod/Tazobactam (Sod 3.375 gm/ Dextrose) 50 mls @ 100 mls/hr IVPB Q8H-IV KELLEY; Protocol Last Admin: 12/16/17 09:58 Dose: 100 mls/hr Metoprolol Tartrate (Lopressor -) 25 mg PO BID KELLEY Last Admin: 12/16/17 09:58 Dose: 25 mg Mupirocin (Bactroban Ointment (For Decolonization) -) 1 applic NS BID KELLEY Stop: 12/17/17 21:59 Last Admin: 12/16/17 10:03 Dose: 1 applic - Objective Vital Signs: Vital Signs Temperature 99.6 F 12/16/17 14:07 Pulse Rate 68 12/16/17 14:07 Respiratory Rate 28 H 12/16/17 14:07 Blood Pressure 151/76 12/16/17 14:07 O2 Sat by Pulse Oximetry (%) 98 12/16/17 09:00 Constitutional: Yes: No Distress, Calm Cardiovascular: Yes: S1, S2 Respiratory: Yes: Regular, CTA Bilaterally Gastrointestinal: Yes: Normal Bowel Sounds, Soft Musculoskeletal: Yes: WNL Extremities: Yes: WNL Neurological: Yes: Alert, Oriented Psychiatric: Yes: Alert, Oriented Labs: CBC, BMP 12/16/17 05:30 12/16/17 05:30 Assessment/Plan Problem List - Problems (1) Sepsis due to urinary tract infection Code(s): A41.9 - SEPSIS, UNSPECIFIED ORGANISM; N39.0 - URINARY TRACT INFECTION, SITE NOT SPECIFIED (2) Basal cell carcinoma (BCC) of upper back Code(s): C44.519 - BASAL CELL CARCINOMA OF SKIN OF OTHER PART OF TRUNK (3) Malignant melanoma of skin of abdomen Code(s): C43.59 - MALIGNANT MELANOMA OF OTHER PART OF TRUNK 4 leukocytosis 5 altered mental status plan doing well if stable will deescalate abx tomorrow all cx reports noted rest as per the team
--- NOTE | 2017-12-16 15:51 | PN ---
Progress Note, Physician History of Present Illness: Pt seen and examined at bedside. He is awake and alert. He denies fevers or chills. - Current Medication List Current Medications: Active Medications Acetaminophen (Tylenol -) 650 mg PO Q6H PRN PRN Reason: FEVER Chlorhexidine Gluconate (Hibiclens For Decolonization -) 1 applic TP HS KELLEY Piperacillin Sod/Tazobactam (Sod 3.375 gm/ Dextrose) 50 mls @ 100 mls/hr IVPB Q8H-IV KELLEY; Protocol Last Admin: 12/16/17 09:58 Dose: 100 mls/hr Metoprolol Tartrate (Lopressor -) 25 mg PO BID KELLEY Last Admin: 12/16/17 09:58 Dose: 25 mg Mupirocin (Bactroban Ointment (For Decolonization) -) 1 applic NS BID KELLEY Stop: 12/17/17 21:59 Last Admin: 12/16/17 10:03 Dose: 1 applic - Objective Vital Signs: Vital Signs Temperature 99.6 F 12/16/17 14:07 Pulse Rate 68 12/16/17 14:07 Respiratory Rate 28 H 12/16/17 14:07 Blood Pressure 151/76 12/16/17 14:07 O2 Sat by Pulse Oximetry (%) 98 12/16/17 09:00 Constitutional: Yes: Calm Eyes: Yes: Conjunctiva Clear HENT: Yes: Atraumatic Neck: Yes: Supple Cardiovascular: Yes: S1, S2 Respiratory: Yes: CTA Bilaterally Gastrointestinal: Yes: Normal Bowel Sounds, Soft Genitourinary: Yes: Marie Present Musculoskeletal: Yes: WNL Edema: No Neurological: Yes: Oriented Psychiatric: Yes: Oriented Labs: CBC, BMP 12/16/17 05:30 12/16/17 05:30 Problem List - Problems (1) LORY (acute kidney injury) Code(s): N17.9 - ACUTE KIDNEY FAILURE, UNSPECIFIED (2) BPH (benign prostatic hyperplasia) Code(s): N40.0 - BENIGN PROSTATIC HYPERPLASIA WITHOUT LOWER URINRY TRACT SYMP (3) HTN (hypertension) Code(s): I10 - ESSENTIAL (PRIMARY) HYPERTENSION (4) Anxiety Code(s): F41.9 - ANXIETY DISORDER, UNSPECIFIED (5) Lactic acid acidosis Code(s): E87.2 - ACIDOSIS (6) Sepsis due to urinary tract infection Code(s): A41.9 - SEPSIS, UNSPECIFIED ORGANISM; N39.0 - URINARY TRACT INFECTION, SITE NOT SPECIFIED (7) Basal cell carcinoma (BCC) of upper back Code(s): C44.519 - BASAL CELL CARCINOMA OF SKIN OF OTHER PART OF TRUNK Assessment/Plan Current Medications Generic Name Dose Route Start Last Admin Trade Name Freq PRN Reason Stop Dose Admin Acetaminophen 650 mg 12/16/17 02:23 Tylenol - PO Q6H PRN FEVER Chlorhexidine Gluconate 1 applic 12/16/17 22:00 Hibiclens For Decolonization - TP HS KELLEY Piperacillin Sod/Tazobactam 50 mls @ 100 mls/hr 12/16/17 02:45 12/16/17 09:58 Sod 3.375 gm/ Dextrose IVPB 100 mls/hr Q8H-IV KELLEY Administration Protocol Metoprolol Tartrate 25 mg 12/16/17 10:00 12/16/17 09:58 Lopressor - PO 25 mg BID KELLEY Administration Mupirocin 1 applic 12/16/17 10:00 12/16/17 10:03 Bactroban Ointment (For Decolonization) - NS 12/17/17 21:59 1 applic BID KELLEY Administration Impression 1. LORY 2. sepsis 3. bacteremia 4. hx htn 5. basal cell cancer 6. melanoma resected 7. anxiety 8. bph s/p greenlight [place] procedure on the 10 12. UTI Plan - renal function is stabilizing - abx per ID - avoid nephrotoxins - can add amlodipine and monitor bp - cont bp meds and monitor blood pressure - will follow PRN Dr Castillo
--- NOTE | 2017-12-16 16:25 | PN ---
Progress Note (short form) - Note Progress Note: Resting in NAD. Reports feeling better. No CP or SOB. No acute events overnight. Intake & Output 12/13/17 12/14/17 12/15/17 12/16/17 23:59 23:59 23:59 23:59 Intake Total 3380 2225 2515 650 Output Total 4200 2700 6700 3300 Balance -820 -475 -4185 -0720 Weight 156 lb 156 lb 2 oz Last Vital Signs Temp Pulse Resp BP Pulse Ox 99.6 F 68 28 H 151/76 98 12/16/17 14:07 12/16/17 14:07 12/16/17 14:07 12/16/17 14:07 12/16/17 09:00 Active Medications Acetaminophen (Tylenol -) 650 mg PO Q6H PRN PRN Reason: FEVER Amlodipine Besylate (Norvasc -) 2.5 mg PO DAILY [facility] Chlorhexidine Gluconate (Hibiclens For Decolonization -) 1 applic TP HS [facility] Piperacillin Sod/Tazobactam (Sod 3.375 gm/ Dextrose) 50 mls @ 100 mls/hr IVPB Q8H-IV [facility]; Protocol Last Admin: 12/16/17 09:58 Dose: 100 mls/hr Metoprolol Tartrate (Lopressor -) 25 mg PO BID [facility] Last Admin: 12/16/17 09:58 Dose: 25 mg Mupirocin (Bactroban Ointment (For Decolonization) -) 1 applic NS BID [facility] Stop: 12/17/17 21:59 Last Admin: 12/16/17 10:03 Dose: 1 applic Constitutional: Yes: Awake alert, NAD Cardiovascular: Yes: Regular, no m/r/g Respiratory: Yes: On Nasal O2, few basilar rhonchi Gastrointestinal: Yes: WNL Genitourinary: Yes: Other Musculoskeletal: Yes: WNL Extremities: Yes: WNL Edema: None Peripheral Pulses WNL: Yes Integumentary: Yes: WNL Wound/Incision: Yes: Clean/Dry Neurological: Yes: non-focal , alert and oriented Psychiatric: Yes: Other Laboratory Results - last 24 hr 12/16/17 12/16/17 05:30 05:30 WBC 9.6 RBC 3.81 L Hgb 11.0 L Hct 32.8 L MCV 86.1 MCH 28.8 MCHC 33.4 RDW 16.4 H Plt Count 222 MPV 9.9 Sodium 142 Potassium 3.9 Chloride 109 H Carbon Dioxide 24 Anion Gap 9 BUN 12 Creatinine 0.8 Creat Clearance w eGFR > 60 Random Glucose 88 Calcium 8.6 Phosphorus 3.4 Magnesium 2.0 Problem List - Problems (1) Sepsis due to urinary tract infection Code(s): A41.9 - SEPSIS, UNSPECIFIED ORGANISM; N39.0 - URINARY TRACT INFECTION, SITE NOT SPECIFIED (2) Basal cell carcinoma (BCC) of upper back Code(s): C44.519 - BASAL CELL CARCINOMA OF SKIN OF OTHER PART OF TRUNK (3) Malignant melanoma of skin of abdomen Code(s): C43.59 - MALIGNANT MELANOMA OF OTHER PART OF TRUNK Assessment/Plan ABX per ID O2 as needed Pain control Incentive Spirometry PO as tolerated Dr Medina
--- NOTE | 2017-12-16 16:29 | PN ---
Progress Note, Physician Chief Complaint: dc miranda and give trial of voiding transfer to floor when bed available monitor urine output no fever WBC coming down - Current Medication List Current Medications: Active Medications Acetaminophen (Tylenol -) 650 mg PO Q6H PRN PRN Reason: FEVER Amlodipine Besylate (Norvasc -) 2.5 mg PO DAILY [facility] Chlorhexidine Gluconate (Hibiclens For Decolonization -) 1 applic TP HS [facility] Piperacillin Sod/Tazobactam (Sod 3.375 gm/ Dextrose) 50 mls @ 100 mls/hr IVPB Q8H-IV [facility]; Protocol Last Admin: 12/16/17 09:58 Dose: 100 mls/hr Metoprolol Tartrate (Lopressor -) 25 mg PO BID [facility] Last Admin: 12/16/17 09:58 Dose: 25 mg Mupirocin (Bactroban Ointment (For Decolonization) -) 1 applic NS BID [facility] Stop: 12/17/17 21:59 Last Admin: 12/16/17 10:03 Dose: 1 applic - Objective Vital Signs: Vital Signs Temperature 99.6 F 12/16/17 14:07 Pulse Rate 68 12/16/17 14:07 Respiratory Rate 28 H 12/16/17 14:07 Blood Pressure 151/76 12/16/17 14:07 O2 Sat by Pulse Oximetry (%) 98 12/16/17 09:00 Constitutional: Yes: Calm Cardiovascular: Yes: Regular Rate and Rhythm, S1, S2 Respiratory: Yes: CTA Bilaterally Gastrointestinal: Yes: Normal Bowel Sounds, Soft Genitourinary: Yes: Miranda Present (clear urine) Edema: No Neurological: Yes: Alert, Oriented Labs: CBC, BMP 12/16/17 05:30 12/16/17 05:30 Assessment/Plan sepsis resolving non fver wbc trending down on iv zosyn lactic acid normal urology on board OOB to chair dc miranda trial of void and transfer to floor HTN on metorpolol and norvasc
[2017-12-16] MEDS: amLODIPine BESYLATE 2.5 MG TABLET (FP) PO SCH (16:44)
[2017-12-16] MEDS ORDERED: CHLORHEXIDINE GLUCONATE 4% CLEANSER FOR DECOLONIZATION TP SCH (22:00)
[2017-12-17] MEDS ORDERED: PIPERACILLIN/TAZOBACTAM 3.375 GM VIAL IVPB ONE ×2 (01:08→10:19)
[2017-12-17] MEDS ORDERED: DEXTROSE 5%-WATER - 50 ML IVPB ONE ×2 (01:08→10:19)
[2017-12-17] MEDS: PIPERACILLIN/TAZOB 3.375 GM 3.375 GM in DEXTROSE 5%-WATER - 50 ML IVPB SCH ×2 (01:18→10:22)
--- NOTE | 2017-12-17 09:09 | PN ---
Progress Note (short form) - Note Progress Note: Neurology CHIEF COMPLAINT: AMS HISTORY OF PRESENT ILLNESS: 76 year old male with a significant past medical history of malignant melanoma s /p right upper back malignant wide excision, resection of a LLQ melanoma, hypertension and anxiety. Patient was admitted and completed Greenlight laser for BPH under general anesthesia by Dr. Devlin, who requested consult for AMS. The patient developed fevers with chills post op and was noted to have an elevated lactic acid. ID was consulted and patient was started on Zosyn. he also demonstrated confusion and I was consulted for further evaluation. He was seen at bedside with family members including one of them who is a very pleasant nurse. She reports his baseline is alert and oriented and completely independent. He was able to tell me the name of the president as well. He had difficulty remembering the name of the Cloud Developer. He was transferred to ICU for metabolic encephalopathy in the setting of sepsis where he was under critical care monitoring. His change in mental status thought to be multifactorial and related to anesthesia versus underlying infection/sepsis which were all addressed. Remains on Zosyn. Downgraded from ICU to floor status and remains awake, alert, interactive. Not confused or somnolent during my encounter. Knows he's in the hospital, knows date (aware it's november today 2017). Ct head was reviewed and without acute changes. Active Medications Acetaminophen (Tylenol -) 650 mg PO Q6H PRN PRN Reason: FEVER Last Admin: 12/16/17 17:30 Dose: 650 mg Amlodipine Besylate (Norvasc -) 2.5 mg PO DAILY [facility] Last Admin: 12/16/17 16:44 Dose: 2.5 mg Piperacillin Sod/Tazobactam (Sod 3.375 gm/ Dextrose) 50 mls @ 100 mls/hr IVPB Q8H-IV [facility]; Protocol Last Admin: 12/17/17 01:18 Dose: 100 mls/hr Metoprolol Tartrate (Lopressor -) 25 mg PO BID [facility] Last Admin: 12/16/17 22:03 Dose: 25 mg PHYSICAL EXAMINATION Vital Signs Temperature 98.0 F 12/17/17 06:00 Pulse Rate 71 12/17/17 06:00 Respiratory Rate 20 12/17/17 06:00 Blood Pressure 148/80 12/17/17 06:00 O2 Sat by Pulse Oximetry (%) 98 12/16/17 20:45 GENERAL: Awake, alert, oriented, answers questions appropriately HEAD: Normal with no signs of trauma. EYES: Pupils equal, round and reactive to light, extraocular movements intact, sclera anicteric, conjunctiva clear. No lid lag. EARS, NOSE, THROAT: Ears normal, nares patent, oropharynx clear without exudates. Moist mucous membranes. NECK: Normal range of motion, supple without lymphadenopathy, JVD, or masses. LUNGS: Breath sounds equal, clear to auscultation bilaterally. HEART: Regular rate and rhythm ABDOMEN: Soft, nontender, not distended, normoactive bowel sounds, no guarding, no rebound, no masses. PELVIC: miranda draining dark tea colored urine. Swollen scrotum MUSCULOSKELETAL: Normal range of motion at all joints. No bony deformities or tenderness. No CVA tenderness. UPPER EXTREMITIES: No peripheral edema. LOWER EXTREMITIES:. No peripheral edema. NEUROLOGICAL: Normal speech, CN intact, moves all extremities grossly, sensory intact, finger to nose normal, gait deferred SKIN: Warm, dry, normal turgor, no rashes or lesions noted, normal capillary refill. CBCD WBC 9.6 K/mm3 (4.0-10.0) 12/16/17 05:30 RBC 3.81 M/mm3 (4.00-5.60) L 12/16/17 05:30 Hgb 11.0 GM/dL (11.7-16.9) L 12/16/17 05:30 Hct 32.8 % (35.4-49) L 12/16/17 05:30 MCV 86.1 fl (80-96) 12/16/17 05:30 MCHC 33.4 g/dl (32.0-35.9) 12/16/17 05:30 RDW 16.4 % (11.9-15.9) H 12/16/17 05:30 Plt Count 222 K/MM3 (134-434) 12/16/17 05:30 MPV 9.9 fl (7.5-11.1) 12/16/17 05:30 CMP Sodium 142 mmol/L (136-145) 12/16/17 05:30 Potassium 3.9 mmol/L (3.5-5.1) 12/16/17 05:30 Chloride 109 mmol/L (98-107) H 12/16/17 05:30 Carbon Dioxide 24 mmol/L (21-32) 12/16/17 05:30 Anion Gap 9 MMOL/L (8-16) 12/16/17 05:30 BUN 12 mg/dL (7-18) 12/16/17 05:30 Creatinine 0.8 mg/dL (0.55-1.3) 12/16/17 05:30 Creat Clearance w eGFR > 60 (>60) 12/16/17 05:30 Random Glucose 88 mg/dL (74-106) 12/16/17 05:30 Calcium 8.6 mg/dL (8.5-10.1) 12/16/17 05:30 Total Bilirubin 0.5 mg/dL (0.2-1) 12/14/17 05:05 AST 32 U/L (15-37) 12/14/17 05:05 ALT 23 U/L (13-61) 12/14/17 05:05 Alkaline Phosphatase 107 U/L (45-117) 12/14/17 05:05 Total Protein 5.6 g/dl (6.4-8.2) L 12/14/17 05:05 Albumin 2.3 g/dl (3.4-5.0) L 12/14/17 05:05 CT head reviewed ASSESSMENT/PLAN: 76 year old male with a significant past medical history of malignant melanoma s /p right upper back malignant wide excision, resection of a LLQ melanoma, hypertension and anxiety. Patient was admitted and completed Greenlight laser for BPH under general anesthesia by Dr. Devlin, who requested consult for AMS. The patient developed fevers with chills post op and was noted to have an elevated lactic acid. ID was consulted and patient was started on Zosyn. he also demonstrated confusion and I was consulted for further evaluation. He was seen at bedside with family members including one of them who is a very pleasant nurse. She reports his baseline is alert and oriented and completely independent. During my evaluation, he was not able to tell me the date but did know that he was in the hospital and was able to tell me the name. He was able to tell me the name of the president as well. He had difficulty remembering the name of the Cloud Developer. Improved mental status More interactive Ct without acute changes Maintain adequate hydration, monitor blood pressure, maintain normotensive range Reorientation recommended Xanax being held due to concern of mental status, can restart as mental status stabilized follow-up ID recommendations, monitor white count Is improving in mental status, continue supportive care Downgraded to floor, stable DVT ppx
--- NOTE | 2017-12-17 09:51 | PN ---
Progress Note, Physician History of Present Illness: Feels better Miranda out - Current Medication List Current Medications: Active Medications Acetaminophen (Tylenol -) 650 mg PO Q6H PRN PRN Reason: FEVER Last Admin: 12/16/17 17:30 Dose: 650 mg Amlodipine Besylate (Norvasc -) 2.5 mg PO DAILY [facility] Last Admin: 12/16/17 16:44 Dose: 2.5 mg Piperacillin Sod/Tazobactam (Sod 3.375 gm/ Dextrose) 50 mls @ 100 mls/hr IVPB Q8H-IV [facility]; Protocol Last Admin: 12/17/17 01:18 Dose: 100 mls/hr Metoprolol Tartrate (Lopressor -) 25 mg PO BID [facility] Last Admin: 12/16/17 22:03 Dose: 25 mg - Objective Vital Signs: Vital Signs Temperature 98.0 F 12/17/17 06:00 Pulse Rate 71 12/17/17 06:00 Respiratory Rate 20 12/17/17 06:00 Blood Pressure 148/80 12/17/17 06:00 O2 Sat by Pulse Oximetry (%) 98 12/16/17 20:45 Cardiovascular: Yes: S1, S2 Respiratory: Yes: Regular, CTA Bilaterally Gastrointestinal: Yes: Normal Bowel Sounds, Soft Labs: CBC, BMP 12/16/17 05:30 12/16/17 05:30 Problem List - Problems (1) Sepsis due to urinary tract infection Assessment/Plan: -Abx per ID Microbiology 12/12/17 19:15 Blood - Peripheral Venous Blood Culture - Preliminary NO GROWTH OBTAINED AFTER 48 HOURS, INCUBATION TO CONTINUE FOR 3 DAYS. 12/12/17 18:00 Blood - Peripheral Venous Blood Culture - Preliminary NO GROWTH OBTAINED AFTER 48 HOURS, INCUBATION TO CONTINUE FOR 3 DAYS. 12/11/17 09:30 Blood - Peripheral Venous Blood Culture - Final Enterococcus Faecalis Citrobacter Koseri 12/11/17 09:45 Blood - Peripheral Venous Blood Culture - Final Enterococcus Faecalis Citrobacter Koseri sepsis resolving non fever wbc trending down on iv zosyn lactic acid normal urology on board OOB to chair dc miranda trial of void transfer to floor Code(s): A41.9 - SEPSIS, UNSPECIFIED ORGANISM; N39.0 - URINARY TRACT INFECTION, SITE NOT SPECIFIED (2) BPH (benign prostatic hyperplasia) Assessment/Plan: s/p Greenlight laser surgery, post op care per urology. Code(s): N40.0 - BENIGN PROSTATIC HYPERPLASIA WITHOUT LOWER URINRY TRACT SYMP (3) Malignant melanoma of skin of abdomen Code(s): C43.59 - MALIGNANT MELANOMA OF OTHER PART OF TRUNK
[2017-12-17] MEDS: amLODIPine BESYLATE 2.5 MG TABLET (FP) PO SCH (10:22)
[2017-12-17] MEDS: METOPROLOL TARTRATE 25 MG TABLET (FP) PO SCH ×2 (10:22→22:18)
--- NOTE | 2017-12-17 11:40 | EKG ---
Test Reason : Blood Pressure : / mmHG Vent. Rate : 084 BPM Atrial Rate : 084 BPM P-R Int : 142 ms QRS Dur : 094 ms QT Int : 358 ms P-R-T Axes : 040 010 -18 degrees QTc Int : 423 ms NORMAL SINUS RHYTHM POSSIBLE LEFT ATRIAL ENLARGEMENT BORDERLINE ECG WHEN COMPARED WITH ECG OF 12-DEC-2017 09:55, T WAVE INVERSION MORE EVIDENT IN INFERIOR LEADS QT HAS SHORTENED Confirmed by WENDY RICHARDSON, SOL ([id number]) on 12/17/2017 11:40:34 AM Referred By: Eduard Devlin Confirmed By:SOL NGUYEN MD
--- NOTE | 2017-12-17 11:57 | ECHO ---
Name: SAEED DECKER Exam:Adult Echocardiogram Study Date: 12/17/2017 10:23 AM Age: 76 yrs Reason For Study: bacteremia Height: 68 in Weight: 152 lb BSA: 1.8 m2 BP: 135/88 mmHg MMode/2D Measurements & Calculations IVSd: 1.0 cm Ao root diam: 3.9 cm LVIDd: 5.6 cm LA dimension: 4.5 cm LVIDs: 3.3 cm ACS: 2.1 cm LVPWd: 0.96 cm IVSs: 1.4 cm LVPWs: 1.5 cm EDV(Teich): 155.8 ml ESV(Teich): 44.7 ml Doppler Measurements & Calculations MV E max delvis: 73.1 cm/sec Ao V2 max: 126.2 cm/sec MV A max delvis: 80.5 cm/sec Ao max P.4 mmHg MV E/A: 0.91 Ao V2 mean: 95.4 cm/sec Ao mean P.0 mmHg Ao V2 VTI: 23.2 cm MR max delvis: 577.7 cm/sec PI end-d delvis: 135.7 cm/sec MR max P.6 mmHg Med Peak E' Delvis: 6.1 cm/sec Med E/e': 11.9 Lat Peak E' Delvis: 7.9 cm/sec Lat E/e': 9.3 Procedure A two-dimensional transthoracic echocardiogram with color flow and Doppler was performed. Left Ventricle The left ventricular size, thickness and function are normal. The left ventricular ejection fraction is normal. Left Ventricular Filling pattern is normal for age. The left ventricular wall motion is joe l. Right Ventricle The right ventricle is normal in size and function. Atria The left atrium is mildly dilated. The right atrium is mildly dilated. Mitral Valve There is mild mitral valve thickening. There is no mitral valve stenosis. There is moderate mitral regurgitation. Tricuspid Valve There is mild tricuspid valve thickening. There is no tricuspid stenosis. There was insufficient TR d etected to calculate RV systolic pressure. Aortic Valve The aortic valve is trileaflet. There is mild aortic valve thickening. No hemodynamically significant valvular aortic stenosis. No aortic regurgitation is present. Pulmonic Valve The pulmonic valve is not well visualized. There is no pulmonic valvular stenosis. Mild pulmonic valv ular regurgitation. Great Vessels Mild aortic root dilatation. Pericardium/Pleura There is no pericardial effusion. Interpretation Summary The left ventricular size, thickness and function are normal The left ventricular ejection fraction is normal. The left ventricular wall motion is normal. The right ventricle is normal in size and function. The left atrium is mildly dilated. The right atrium is mildly dilated. The aortic valve is trileaflet. There is mild aortic valve thickening. Left Ventricular Filling pattern is normal for age. There is moderate mitral regurgitation. There was insufficient TR detected to calculate RV systolic pressure. Mild aortic root dilatation. MD Chris Oden 12/17/2017 11:56 AM
--- NOTE | 2017-12-17 13:39 | PN ---
Progress Note (short form) - Note Progress Note: PULMONARY Denies shortness of breath or chest pain. No fevers or chills. Vital Signs Period Temp Pulse Resp BP Sys/Dalton Pulse Ox Last 24 Hr 98.0 F-99.6 F 60-87 18-28 141-158/76-96 98-98 Intake & Output 12/14/17 12/15/17 12/16/17 12/17/17 23:59 23:59 23:59 23:59 Intake Total 2225 2515 1050 200 Output Total 2700 6700 4100 700 Balance -475 -4185 -3050 -500 Weight 70.76 kg 70.817 kg 69.116 kg Gen: NAD at rest Heart: RRR Lung: decreased breath sounds at the bases Abd: soft, nontender, +hernia Ext: no edema CBC, BMP 12/16/17 05:30 12/16/17 05:30 Active Medications Acetaminophen (Tylenol -) 650 mg PO Q6H PRN PRN Reason: FEVER Last Admin: 12/16/17 17:30 Dose: 650 mg Amlodipine Besylate (Norvasc -) 2.5 mg PO DAILY [facility] Last Admin: 12/17/17 10:22 Dose: 2.5 mg Piperacillin Sod/Tazobactam (Sod 3.375 gm/ Dextrose) 50 mls @ 100 mls/hr IVPB Q8H-IV [facility]; Protocol Last Admin: 12/17/17 10:22 Dose: 100 mls/hr Metoprolol Tartrate (Lopressor -) 25 mg PO BID [facility] Last Admin: 12/17/17 10:22 Dose: 25 mg A/P UTI Sepsis Polymicrobial Bacteremia Acute Kidney Injury HTN BPH - continue antibiotics per ID - PO as tolerated - continue BP meds - DVT prophylaxis
--- NOTE | 2017-12-17 14:46 | PN ---
Progress Note, Physician History of Present Illness: patient stable doing well no complaints - Current Medication List Current Medications: Active Medications Acetaminophen (Tylenol -) 650 mg PO Q6H PRN PRN Reason: FEVER Last Admin: 12/16/17 17:30 Dose: 650 mg Amlodipine Besylate (Norvasc -) 2.5 mg PO DAILY [facility] Last Admin: 12/17/17 10:22 Dose: 2.5 mg Metoprolol Tartrate (Lopressor -) 25 mg PO BID [facility] Last Admin: 12/17/17 10:22 Dose: 25 mg - Objective Vital Signs: Vital Signs Temperature 98.1 F 12/17/17 10:00 Pulse Rate 87 12/17/17 10:00 Respiratory Rate 18 12/17/17 10:00 Blood Pressure 158/76 12/17/17 10:00 O2 Sat by Pulse Oximetry (%) 98 12/17/17 09:00 Constitutional: Yes: No Distress, Calm Cardiovascular: Yes: Regular Rate and Rhythm Respiratory: Yes: Regular, CTA Bilaterally Gastrointestinal: Yes: Normal Bowel Sounds, Soft Musculoskeletal: Yes: WNL Extremities: Yes: WNL Neurological: Yes: Alert, Oriented Psychiatric: Yes: Alert, Oriented Labs: CBC, BMP 12/16/17 05:30 12/16/17 05:30 Assessment/Plan Problem List - Problems (1) Sepsis due to urinary tract infection Code(s): A41.9 - SEPSIS, UNSPECIFIED ORGANISM; N39.0 - URINARY TRACT INFECTION, SITE NOT SPECIFIED (2) Basal cell carcinoma (BCC) of upper back Code(s): C44.519 - BASAL CELL CARCINOMA OF SKIN OF OTHER PART OF TRUNK (3) Malignant melanoma of skin of abdomen Code(s): C43.59 - MALIGNANT MELANOMA OF OTHER PART OF TRUNK 4 leukocytosis 5 altered mental status plan will stop abx will monitor post abx rest continue current mgmt rest as per the team patient doing well
--- NOTE | 2017-12-17 17:03 | PN ---
Progress Note, Physician History of Present Illness: Pt seen and examined at bedside. He is out of bed and ambulating. He denies shortness of breath. - Current Medication List Current Medications: Active Medications Acetaminophen (Tylenol -) 650 mg PO Q6H PRN PRN Reason: FEVER Last Admin: 12/16/17 17:30 Dose: 650 mg Amlodipine Besylate (Norvasc -) 2.5 mg PO DAILY [facility] Last Admin: 12/17/17 10:22 Dose: 2.5 mg Metoprolol Tartrate (Lopressor -) 25 mg PO BID [facility] Last Admin: 12/17/17 10:22 Dose: 25 mg - Objective Vital Signs: Vital Signs Temperature 98.1 F 12/17/17 10:00 Pulse Rate 87 12/17/17 10:00 Respiratory Rate 18 12/17/17 10:00 Blood Pressure 158/76 12/17/17 10:00 O2 Sat by Pulse Oximetry (%) 98 12/17/17 09:00 Constitutional: Yes: Calm Eyes: Yes: Conjunctiva Clear HENT: Yes: Atraumatic Cardiovascular: Yes: S1, S2 Respiratory: Yes: CTA Bilaterally Gastrointestinal: Yes: Soft Genitourinary: Yes: WNL Musculoskeletal: Yes: WNL Edema: No Neurological: Yes: Oriented Psychiatric: Yes: Oriented Labs: CBC, BMP 12/16/17 05:30 12/16/17 05:30 Problem List - Problems (1) LORY (acute kidney injury) Code(s): N17.9 - ACUTE KIDNEY FAILURE, UNSPECIFIED (2) BPH (benign prostatic hyperplasia) Code(s): N40.0 - BENIGN PROSTATIC HYPERPLASIA WITHOUT LOWER URINRY TRACT SYMP (3) HTN (hypertension) Code(s): I10 - ESSENTIAL (PRIMARY) HYPERTENSION (4) Anxiety Code(s): F41.9 - ANXIETY DISORDER, UNSPECIFIED (5) Lactic acid acidosis Code(s): E87.2 - ACIDOSIS (6) Sepsis due to urinary tract infection Code(s): A41.9 - SEPSIS, UNSPECIFIED ORGANISM; N39.0 - URINARY TRACT INFECTION, SITE NOT SPECIFIED (7) Basal cell carcinoma (BCC) of upper back Code(s): C44.519 - BASAL CELL CARCINOMA OF SKIN OF OTHER PART OF TRUNK Assessment/Plan Current Medications Generic Name Dose Route Start Last Admin Trade Name Freq PRN Reason Stop Dose Admin Acetaminophen 650 mg 09/25/18 02:23 12/16/17 17:30 Tylenol - PO 650 mg Q6H PRN Administration FEVER Amlodipine Besylate 2.5 mg 12/16/17 16:00 12/17/17 10:22 Norvasc - PO 2.5 mg DAILY [facility] Administration Metoprolol Tartrate 25 mg 12/16/17 10:00 12/17/17 10:22 Lopressor - PO 25 mg BID [facility] Administration Impression 1. LORY 2. sepsis 3. bacteremia 4. hx htn 5. basal cell cancer 6. melanoma resected 7. anxiety 8. bph s/p greenlight [place] procedure on the 9. UTI Plan - check bmp in am - pt is voiding - abx per ID - can increase norvasc to 5 mg - will follow Dr Castillo
[2017-12-17] MEDS ORDERED: amLODIPine BESYLATE 2.5 MG TABLET (FP) PO ONE (17:15)
[2017-12-18 06:29] LABS: ANION GAP 6 MMOL/L (8-16); BLOOD UREA NITROGEN 15 mg/dL (7-18); CALCIUM 8.1 mg/dL (8.5-10.1); CHLORIDE 108 mmol/L (98-107); CO2 26 mmol/L (21-32); CREATININE 0.9 mg/dL (0.55-1.3); GLUCOSE,RANDOM 94 mg/dL (74-106); POTASSIUM 4.3 mmol/L (3.5-5.1); SODIUM 140 mmol/L (136-145)
--- NOTE | 2017-12-18 08:25 | DS ---
Physical Examination Vital Signs: Vital Signs Temperature 98.5 F 12/18/17 06:00 Pulse Rate 68 12/18/17 06:00 Respiratory Rate 18 12/18/17 06:00 Blood Pressure 132/87 12/18/17 06:00 O2 Sat by Pulse Oximetry (%) 98 12/17/17 19:47 Cardiovascular: Yes: S1, S2 Respiratory: Yes: Regular, CTA Bilaterally Gastrointestinal: Yes: Normal Bowel Sounds, Soft Labs: CBC, BMP 12/16/17 05:30 12/18/17 05:30 Discharge Summary Reason For Visit: OTHER RETENTION OF URINE Current Active Problems LORY (acute kidney injury) (Acute) Anxiety (Acute) BPH (benign prostatic hyperplasia) (Acute) HTN (hypertension) (Acute) Lactic acid acidosis (Acute) Sepsis (Acute) Sepsis due to urinary tract infection (Acute) Hospital Course: - Problems (1) Sepsis due to urinary tract infection Assessment/Plan: -OFF Abx per ID Microbiology 12/12/17 19:15 Blood - Peripheral Venous Blood Culture - Preliminary NO GROWTH OBTAINED AFTER 48 HOURS, INCUBATION TO CONTINUE FOR 3 DAYS. 12/12/17 18:00 Blood - Peripheral Venous Blood Culture - Preliminary NO GROWTH OBTAINED AFTER 48 HOURS, INCUBATION TO CONTINUE FOR 3 DAYS. 12/11/17 09:30 Blood - Peripheral Venous Blood Culture - Final Enterococcus Faecalis Citrobacter Koseri 12/11/17 09:45 Blood - Peripheral Venous Blood Culture - Final Enterococcus Faecalis Citrobacter Koseri sepsis resolved no fever lactic acid normal urology on board dc miranda ----voiding PT Code(s): A41.9 - SEPSIS, UNSPECIFIED ORGANISM; N39.0 - URINARY TRACT INFECTION, SITE NOT SPECIFIED (2) BPH (benign prostatic hyperplasia) Assessment/Plan: s/p Greenlight laser surgery, post op care per urology. Code(s): N40.0 - BENIGN PROSTATIC HYPERPLASIA WITHOUT LOWER URINRY TRACT SYMP (3) Malignant melanoma of skin of abdomen Code(s): C43.59 - MALIGNANT MELANOMA OF OTHER PART OF TRUNK Patient seen by pt--dc planning to see may benefit from snf---d/w pt --await pt follow up Condition: Good - Instructions Diet, Activity, Other Instructions: drink plenty of liquids Miranda d/c friday in office Disposition: VNS/HOME HEALTH CARE - Home Medications Comprehensive Discharge Medication List: Ambulatory Orders Ferrous Sulfate [Feosol] 325 mg PO DAILY 11/04/17 Multivitamin [One Daily] 1 each PO DAILY 11/04/17 Saw/Vit E/Sod Saloni/Lyc/Beta/Pyg [Prostate Health Caplet] 1 each PO DAILY Ubidecarenone [Coq-10] 100 mg PO DAILY 11/04/17 Alprazolam 0.25 mg PO PRN PRN 12/09/17 Metoprolol Tartrate 25 mg PO DAILY 12/09/17 Acetaminophen [Tylenol .Regular Strength -] 650 mg PO Q6H PRN tablet 12/18/17 Amlodipine Besylate [Norvasc -] 5 mg PO DAILY #30 tablet 12/18/17
--- NOTE | 2017-12-18 09:06 | PN ---
Progress Note (short form) - Note Progress Note: Neurology CHIEF COMPLAINT: AMS HISTORY OF PRESENT ILLNESS: 76 year old male with a significant past medical history of malignant melanoma s /p right upper back malignant wide excision, resection of a LLQ melanoma, hypertension and anxiety. Patient was admitted and completed Greenlight laser for BPH under general anesthesia by Dr. Devlin, who requested consult for AMS. The patient developed fevers with chills post op and was noted to have an elevated lactic acid. ID was consulted and patient was started on Zosyn. he also demonstrated confusion and I was consulted for further evaluation. He was seen at bedside with family members including one of them who is a very pleasant nurse. She reports his baseline is alert and oriented and completely independent. He was able to tell me the name of the president as well. He had difficulty remembering the name of the Stranner. He was transferred to ICU for metabolic encephalopathy in the setting of sepsis where he was under critical care monitoring. His change in mental status thought to be multifactorial and related to anesthesia versus underlying infection/sepsis which were all addressed. Zosyn discontinued. Downgraded from ICU to floor status and remains awake, alert, interactive. Ct head was reviewed and without acute changes. Appears to be at baseline. Likely for discharge and well appearing. Active Medications Acetaminophen (Tylenol -) 650 mg PO Q6H PRN PRN Reason: FEVER Last Admin: 12/16/17 17:30 Dose: 650 mg Amlodipine Besylate (Norvasc -) 5 mg PO DAILY [facility] Metoprolol Tartrate (Lopressor -) 25 mg PO BID [facility] Last Admin: 12/17/17 22:18 Dose: 25 mg PHYSICAL EXAMINATION Vital Signs Period Temp Pulse Resp BP Sys/Dalton Pulse Ox Last 24 Hr 98.1 F-98.5 F 67-87 18-23 126-158/45-88 98 GENERAL: Awake, alert, oriented, answers questions appropriately HEAD: Normal with no signs of trauma. EYES: Pupils equal, round and reactive to light, extraocular movements intact, sclera anicteric, conjunctiva clear. No lid lag. EARS, NOSE, THROAT: Ears normal, nares patent, oropharynx clear without exudates. Moist mucous membranes. NECK: Normal range of motion, supple without lymphadenopathy, JVD, or masses. LUNGS: Breath sounds equal, clear to auscultation bilaterally. HEART: Regular rate and rhythm ABDOMEN: Soft, nontender, not distended, normoactive bowel sounds, no guarding, no rebound, no masses. PELVIC: miranda draining dark tea colored urine. Swollen scrotum MUSCULOSKELETAL: Normal range of motion at all joints. No bony deformities or tenderness. No CVA tenderness. UPPER EXTREMITIES: No peripheral edema. LOWER EXTREMITIES:. No peripheral edema. NEUROLOGICAL: Normal speech, CN intact, moves all extremities grossly, sensory intact, finger to nose normal, gait deferred SKIN: Warm, dry, normal turgor, no rashes or lesions noted, normal capillary refill. CBCD WBC 9.6 K/mm3 (4.0-10.0) 12/16/17 05:30 RBC 3.81 M/mm3 (4.00-5.60) L 12/16/17 05:30 Hgb 11.0 GM/dL (11.7-16.9) L 12/16/17 05:30 Hct 32.8 % (35.4-49) L 12/16/17 05:30 MCV 86.1 fl (80-96) 12/16/17 05:30 MCHC 33.4 g/dl (32.0-35.9) 12/16/17 05:30 RDW 16.4 % (11.9-15.9) H 12/16/17 05:30 Plt Count 222 K/MM3 (134-434) 12/16/17 05:30 MPV 9.9 fl (7.5-11.1) 12/16/17 05:30 CMP Sodium 140 mmol/L (136-145) 12/18/17 05:30 Potassium 4.3 mmol/L (3.5-5.1) 12/18/17 05:30 Chloride 108 mmol/L (98-107) H 12/18/17 05:30 Carbon Dioxide 26 mmol/L (21-32) 12/18/17 05:30 Anion Gap 6 MMOL/L (8-16) L 12/18/17 05:30 BUN 15 mg/dL (7-18) 12/18/17 05:30 Creatinine 0.9 mg/dL (0.55-1.3) 12/18/17 05:30 Creat Clearance w eGFR > 60 (>60) 12/18/17 05:30 Calcium 8.1 mg/dL (8.5-10.1) L 12/18/17 05:30 Total Bilirubin 0.5 mg/dL (0.2-1) 12/14/17 05:05 AST 32 U/L (15-37) 12/14/17 05:05 ALT 23 U/L (13-61) 12/14/17 05:05 Alkaline Phosphatase 107 U/L (45-117) 12/14/17 05:05 Total Protein 5.6 g/dl (6.4-8.2) L 12/14/17 05:05 Albumin 2.3 g/dl (3.4-5.0) L 12/14/17 05:05 CT head reviewed ASSESSMENT/PLAN: 76 year old male with a significant past medical history of malignant melanoma s /p right upper back malignant wide excision, resection of a LLQ melanoma, hypertension and anxiety. Patient was admitted and completed Greenlight laser for BPH under general anesthesia by Dr. Devlin, who requested consult for AMS. The patient developed fevers with chills post op and was noted to have an elevated lactic acid. ID was consulted and patient was started on Zosyn. he also demonstrated confusion and I was consulted for further evaluation. He was seen at bedside with family members including one of them who is a very pleasant nurse. She reports his baseline is alert and oriented and completely independent. During my evaluation, he was not able to tell me the date but did know that he was in the hospital and was able to tell me the name. He was able to tell me the name of the president as well. He had difficulty remembering the name of the Stranner. Improved mental status More interactive Ct without acute changes Maintain adequate hydration, monitor blood pressure, maintain normotensive range Reorientation recommended Xanax being held due to concern of mental status, can restart as mental status stabilized No longer on Abx Mental status appears to be at baseline Likely for discharge DVT ppx
[2017-12-18] MEDS: METOPROLOL TARTRATE 25 MG TABLET (FP) PO SCH (09:44)
[2017-12-18] MEDS ORDERED: amLODIPine BESYLATE 5 MG TABLET (FP) PO SCH (10:00)
--- NOTE | 2017-12-18 13:27 | CONSULT ---
Consult Consult Specialty:: PM&R - History of Present Illness Chief Complaint: wants to walk History of Present Illness: This is a 76 year old man with a medical history of anxiety, HTN, melanoma resection (abdomen and upper back), who was admitted to [facility] 12/10/17 following a Greenlight laser procedure for BPH. His post-op course was complicated by fevers, chills and leukocytosis. Zosyn was started by ID for urosepsis, with blood cultures growing E faecalis and Citrobacter koseri. He was seen by PT, and on 12/17/17 he was Contact Guard in Transfers, and ambulated 80 feet Contact Guard with Rolling Walker. Physiatry is being consulted for further recommendations. - History Source History Provided By: Patient, Medical Record - Past Medical History Cardio/Vascular: Yes: HTN Renal/: Yes: BPH Psych: Yes: Anxiety Dermatology: Yes: Basal Cell, Melanoma - Past Surgical History Past Surgical History: Yes: Hernia Repair - Alcohol/Substance Use Hx Alcohol Use: Yes (wine occas) History of Substance Use: reports: None - Smoking History Smoking history: Never smoked Have you smoked in the past 12 months: No - Social History Usual Living Arrangement: With Spouse (lives with in house with 1 step to enter from [facility]) ADL: Independent (previously Independent in ADLs/ IADLs without Assistive Device ) History of Recent Travel: No Home Medications - Allergies Allergies/Adverse Reactions: Allergies Allergy/AdvReac Type Severity Reaction Status Date / Time No Known Allergies Allergy Verified 12/09/17 13:56 - Home Medications Home Medications: Ambulatory Orders Ferrous Sulfate [Feosol] 325 mg PO DAILY 11/04/17 Multivitamin [One Daily] 1 each PO DAILY 11/04/17 Saw/Vit E/Sod Saloni/Lyc/Beta/Pyg [Prostate Health Caplet] 1 each PO DAILY Ubidecarenone [Coq-10] 100 mg PO DAILY 11/04/17 Alprazolam 0.25 mg PO PRN PRN 12/09/17 Metoprolol Tartrate 25 mg PO DAILY 12/09/17 Acetaminophen [Tylenol .Regular Strength -] 650 mg PO Q6H PRN tablet 12/18/17 Amlodipine Besylate [Norvasc -] 5 mg PO DAILY #30 tablet 12/18/17 Family Disease History - Family Disease History Family Disease History: CA: Daughter (hodgkins lymohoma) Review of Systems Findings/Remarks: denies fevers, chills, changes in vision/ hearing/ mood, CP, SOB, abdominal pain , nausea, vomiting, constipation, diarrhea, dysuria, muscle/ joint pain, numbness/ paresthesias Physical Exam Vital Signs: Vital Signs Temperature 98.5 F 12/18/17 06:00 Pulse Rate 65 12/18/17 10:00 Respiratory Rate 18 12/18/17 10:00 Blood Pressure 144/84 12/18/17 10:00 O2 Sat by Pulse Oximetry (%) 98 12/18/17 09:00 Musculoskeletal: Yes: Other (General: calm elderly M sitting in chair NAD, AAO x3 N/M: full BUE/ BLE ROM, 4+/5 BUE/ BLE; Pinprick Intact BUE/ BLE Extremities: no BLE pitting edema, no B calf tenderness) Labs: CBC, BMP 12/16/17 05:30 12/18/17 05:30 Assessment/Plan Impression: 1) Deficits mobility/ ADLs 2) Deconditioning 3) Urosepsis 4) Bacteremia 5) hx anxiety 6) hx HTN 7) hx melanoma resection (abdomen and upper back), basal cell ca 8) BPH s/p 12/09/17 Greenlight laser procedure 9) BMI WNL 10) No recent flu shot/ pneumovax 11) Anemia Recommendations: 1) PT for stretching strengthening ROM and functional mobility, endurance 2) Falls, safety precautions 3) Cardiac precautions 4) DVT ppx: encourage ambulation 5) Denies constipation on current bowel regimen 6) Monitor CBC given anemia 7) Discharge planning: due to current weakness, he would benefit from short- course inpatient rehabilitation. However, if he continues to progress with PT, may be able to return home with home services. Thank you for this referral.
--- NOTE | 2017-12-18 13:54 | PN ---
Progress Note, Physician History of Present Illness: Pt seen and examined at bedside. He is awake and alert. He denies shortness of breath. He is voiding without difficulty. - Current Medication List Current Medications: Active Medications Acetaminophen (Tylenol -) 650 mg PO Q6H PRN PRN Reason: FEVER Last Admin: 12/16/17 17:30 Dose: 650 mg Amlodipine Besylate (Norvasc -) 5 mg PO DAILY [facility] Last Admin: 12/18/17 09:44 Dose: 5 mg Metoprolol Tartrate (Lopressor -) 25 mg PO BID [facility] Last Admin: 12/18/17 09:44 Dose: 25 mg - Objective Vital Signs: Vital Signs Temperature 98.5 F 12/18/17 06:00 Pulse Rate 66 12/18/17 13:41 Respiratory Rate 18 12/18/17 13:41 Blood Pressure 104/86 12/18/17 13:41 O2 Sat by Pulse Oximetry (%) 98 12/18/17 09:00 Constitutional: Yes: Calm Eyes: Yes: Conjunctiva Clear HENT: Yes: Atraumatic Cardiovascular: Yes: S1, S2 Respiratory: Yes: CTA Bilaterally Gastrointestinal: Yes: Normal Bowel Sounds, Soft Genitourinary: Yes: WNL Musculoskeletal: Yes: WNL Edema: No Neurological: Yes: Oriented Psychiatric: Yes: Oriented Labs: CBC, BMP 12/16/17 05:30 12/18/17 05:30 Problem List - Problems (1) LORY (acute kidney injury) Code(s): N17.9 - ACUTE KIDNEY FAILURE, UNSPECIFIED (2) BPH (benign prostatic hyperplasia) Code(s): N40.0 - BENIGN PROSTATIC HYPERPLASIA WITHOUT LOWER URINRY TRACT SYMP (3) HTN (hypertension) Code(s): I10 - ESSENTIAL (PRIMARY) HYPERTENSION (4) Anxiety Code(s): F41.9 - ANXIETY DISORDER, UNSPECIFIED (5) Lactic acid acidosis Code(s): E87.2 - ACIDOSIS (6) Sepsis due to urinary tract infection Code(s): A41.9 - SEPSIS, UNSPECIFIED ORGANISM; N39.0 - URINARY TRACT INFECTION, SITE NOT SPECIFIED (7) Basal cell carcinoma (BCC) of upper back Code(s): C44.519 - BASAL CELL CARCINOMA OF SKIN OF OTHER PART OF TRUNK Assessment/Plan Current Medications Generic Name Dose Route Start Last Admin Trade Name Freq PRN Reason Stop Dose Admin Acetaminophen 650 mg 12/16/17 02:23 12/16/17 17:30 Tylenol - PO 650 mg Q6H PRN Administration FEVER Amlodipine Besylate 5 mg 12/18/17 10:00 12/18/17 09:44 Norvasc - PO 5 mg DAILY [facility] Administration Metoprolol Tartrate 25 mg 12/16/17 10:00 12/18/17 09:44 Lopressor - PO 25 mg BID [facility] Administration Impression 1. LORY 2. sepsis 3. bacteremia 4. hx htn 5. basal cell cancer 6. melanoma resected 7. anxiety 8. bph s/p greenlight [place] procedure on the 10 12. UTI Plan - pt is voiding without difficulty - renal function - he had a few episodes of low bp, will change norvasc back to 2.5 - abx per ID - will follow Dr Castillo
--- NOTE | 2017-12-18 15:48 | PN ---
Progress Note, Physician History of Present Illness: doing well no issues stable - Current Medication List Current Medications: Active Medications Acetaminophen (Tylenol -) 650 mg PO Q6H PRN PRN Reason: FEVER Last Admin: 12/16/17 17:30 Dose: 650 mg Amlodipine Besylate (Norvasc -) 2.5 mg PO DAILY [facility] Metoprolol Tartrate (Lopressor -) 25 mg PO BID [facility] Last Admin: 12/18/17 09:44 Dose: 25 mg - Objective Vital Signs: Vital Signs Temperature 98.1 F 12/18/17 13:41 Pulse Rate 66 12/18/17 13:41 Respiratory Rate 18 12/18/17 13:41 Blood Pressure 104/86 12/18/17 13:41 O2 Sat by Pulse Oximetry (%) 98 12/18/17 09:00 Constitutional: Yes: No Distress, Calm Cardiovascular: Yes: S1, S2 Gastrointestinal: Yes: Normal Bowel Sounds, Soft Musculoskeletal: Yes: WNL Extremities: Yes: WNL Neurological: Yes: Alert, Oriented Psychiatric: Yes: Alert, Oriented Labs: CBC, BMP 12/16/17 05:30 12/18/17 05:30 Assessment/Plan Problem List - Problems (1) Sepsis due to urinary tract infection Code(s): A41.9 - SEPSIS, UNSPECIFIED ORGANISM; N39.0 - URINARY TRACT INFECTION, SITE NOT SPECIFIED (2) Basal cell carcinoma (BCC) of upper back Code(s): C44.519 - BASAL CELL CARCINOMA OF SKIN OF OTHER PART OF TRUNK (3) Malignant melanoma of skin of abdomen Code(s): C43.59 - MALIGNANT MELANOMA OF OTHER PART OF TRUNK 4 leukocytosis 5 altered mental status plan stable off of abx rest continue current mgmt rest as per the team patient doing well
[2017-12-18 17:25] VITALS: BP 129/75; PULSE 88; TEMP 98
[2017-12-19] MEDS ORDERED: amLODIPine BESYLATE 2.5 MG TABLET (FP) PO SCH (10:00)
== END 2017-12-18 17:28 | disposition home health service (06) | DRG 853 ==
LOC: SUATTDRO 13:33 → JASU-SURG 13:33 → J8W 19:30 → JICU 12-12 14:58 → J2W 12-16 02:21
PROVIDERS: ADMIT Urology; ATTEND Family Medicine
PROC: 0V508ZZ Destruction of Prostate, Via Natural or Artificial Opening Endoscopic (ICD-10-PCS; principal; 2017-12-10 15:00)
DX: A41.9 Sepsis, unspecified organism (principal); G93.41 Metabolic encephalopathy; N17.9 Acute kidney failure, unspecified; N39.0 Urinary tract infection, site not specified; J98.11 Atelectasis; E87.2 Acidosis; R50.9 Fever, unspecified; R31.9 Hematuria, unspecified; I10 Essential (primary) hypertension; F41.9 Anxiety disorder, unspecified; D64.9 Anemia, unspecified; D72.829 Elevated white blood cell count, unspecified; R41.82 Altered mental status, unspecified; N40.1 Benign prostatic hyperplasia with lower urinary tract symptoms; R33.9 Retention of urine, unspecified
CPT/HCPCS: 36415; 70450-TC; 71045-TC-FY; 80048; 80053; 82436; 82570; 83605; 83735; 84100; 84300; 84540; 85025; 85027; 87040; 87186; 93005; 93010; 93306-TC; 94760; 97116-GP; 97161-GP; G0480; J0131; J7030

== ENCOUNTER 2018-03-23 09:57 | Emergency (ER) | payer OTHER ==
--- NOTE | 2018-03-23 10:15 | PDOC ---
History of Present Illness - General Chief Complaint: Respiratory Stated Complaint: RESPIRATORY PROBLEM Time Seen by Provider: 03/23/18 10:04 History Source: Patient Exam Limitations: No Limitations - History of Present Illness Initial Comments: 03/23/18 10:10 77 yo male w h/o HTN malignant melanoma s/p excision from llq stomach and basacl cell carcinoma, bph s/p laser surgery, here with concerns for possible pleural effusion. pt was seen by dr Jimenez who sent to ed for evaluation. per pt , she has noted more jaundice over last few weeks. states melanoma has spread to the liver. have also noted abd distension and retaining fluid mostly in leg edema. pt denies cp no f/c. not currently sob. no f/c no other current complaints. pt is currently getting treated with Kaytruda, and is transferring care to [facility]. 03/23/18 10:18 Past History - Past Medical History Allergies/Adverse Reactions: Allergies Allergy/AdvReac Type Severity Reaction Status Date / Time No Known Allergies Allergy Verified 03/23/18 10:01 Home Medications: Ambulatory Orders Ferrous Sulfate [Feosol] 325 mg PO DAILY 11/04/17 Multivitamin [One Daily] 1 each PO DAILY 11/04/17 Saw/Vit E/Sod Saloni/Lyc/Beta/Pyg [Prostate Health Caplet] 1 each PO DAILY Ubidecarenone [Coq-10] 100 mg PO DAILY 11/04/17 Alprazolam 0.25 mg PO PRN PRN 12/09/17 Metoprolol Tartrate 25 mg PO DAILY 12/09/17 Acetaminophen [Tylenol .Regular Strength -] 650 mg PO Q6H PRN tablet 12/18/17 Amlodipine Besylate [Norvasc -] 5 mg PO DAILY #30 tablet 12/18/17 Pembrolizumab [Keytruda] 100 mg IV 03/23/18 Anemia: Yes Asthma: No Cancer: Yes (Melanoma left lower abdomen 10/2017) Cardiac Disorders: No CVA: No COPD: No CHF: No Dementia: No Diabetes: No GI Disorders: No Disorders: No HTN: Yes Hypercholesterolemia: No Liver Disease: No Seizures: No Thyroid Disease: No - Surgical History Abdominal Surgery: No Appendectomy: No Cardiac Surgery: No Cholecystectomy: No Lung Surgery: No Neurologic Surgery: No Orthopedic Surgery: No - Suicide/Smoking/Psychosocial Hx Smoking History: Never smoked Have you smoked in the past 12 months: No Hx Alcohol Use: Yes (wine occas) Drug/Substance Use Hx: No Substance Use Type: Alcohol Hx Substance Use Treatment: No Review of Systems - Review of Systems Constitutional: No: Diaphoresis, Fever HEENTM: No: Blurred Vision Respiratory: Yes: Shortness of Breath. No: Cough, Orthopnea Cardiac (ROS): Yes: Edema. No: Chest Pain ABD/GI: Yes: Abdominal Distended, Poor Appetite. No: Poor Fluid Intake : No: Burning, Dysuria, Discharge Musculoskeletal: No: Back Pain Integumentary: Yes: Other (jaundice) Psychiatric: Yes: Anxiety Endocrine: No: Excessive Sweating Hematologic/Lymphatic: Yes: Other (melanoma) All Other Systems: Reviewed and Negative *Physical Exam - Physical Exam Comments: 03/23/18 10:15 awake alert conj icteric, lungs clear bilaterally heart rrr no mrg abd soft nt . mild abd distension ext wwp. 1+ pitting edema. skin noted scars right upper posterior back and left abd. anterior abd wall with moist lesions / melonoma. nuero alert oriented x 3. moves all four ext. voice clear . 03/23/18 10:36 ED Treatment Course - LABORATORY CBC & Chemistry Diagram: 03/23/18 10:30 03/23/18 10:30 - RADIOLOGY Radiology Studies Ordered: Category Date Time Status CHEST PA & LAT [RAD] Stat Radiology 03/23/18 10:09 Ordered Medical Decision Making - Medical Decision Making 03/23/18 10:15 differential includes pna, plueral effusion, anemia, worsening liver or renal failure. dvt, chf. plan labs ekg cardiac, cxr ammonia, lft's, cbc coags to assess severity of liver failure. will d/w dr. jimenez. will doppler legs r/o dvt 03/23/18 10:36 03/23/18 13:06 pt wtih elevated LFT related to mets. no c/o confusion or signs of encephalopathy. cxr no effusion. doppler negative for dvt. sxs o edema and abd distension likley related to liver disease. albumin 2.4 creatinine normal. d/w dr. Rosas, requesting iv lasix small dose to help wtih leg edema. no lactulose indicated at this point as no sxs of encephalopathy. has appt next week with oncologist at [facility] cant remember name. *DC/Admit/Observation/Transfer Diagnosis at time of Disposition: Edema, Liver failure, Melanoma - Discharge Dispostion Disposition: HOME Condition at time of disposition: Good - Referrals Referrals: Pablo Diallo MD [Primary Care Provider] - - Patient Instructions Printed Discharge Instructions: Liver Failure Additional Instructions: you need to follow up with your oncologist next week as scheduled. return for any shortness of breath, confusion, fevers, or any concerns. follow up with Dr Rosas next week also. your ultrasound of your legs was negative for any blood clot. your liver ezymes are elevated which is likely related to your melanoma metastasis. your chest xray was negative for any fluid or infection. - Post Discharge Activity
[2018-03-23 10:18] VITALS: TEMP 98.3; BMI 22.1
[2018-03-23 10:56] LABS: BASO % 0.5 % (0-2.0); EOS % 3.9 % (0-4.5); HEMATOCRIT 36.2 % (35.4-49); HEMOGLOBIN 12.1 GM/dl (11.7-16.9); LYMPH % 10.3 % (8-40); MCH 33.3 pg (25.7-33.7); MCHC 33.6 g/dl (32.0-35.9); MEAN CELL VOLUME 99.2 fl (80-96); MEAN PLT VOLUME 9.3 fl (7.5-11.1); NEUT % 72.3 % (42.8-82.8); PLATELET COUNT 375 K/MM3 (134-434); RBC 3.65 M/mm3 (4.00-5.60); RDW 17.9 % (11.9-15.9); WHITE BLOOD COUNT 7.9 K/mm3 (4.0-10.8)
[2018-03-23 11:05] LABS: ACTIVATED PTT 33.7 SECONDS (25.2-36.5)
[2018-03-23 11:08] LABS: ALBUMIN 2.5 g/dl (3.5-5.0); ALK PHOS 522 U/L (32-92); ANION GAP 12 MMOL/L (8-16); BILIRUBIN,DIRECT 3.2 mg/dL (0.0-0.3); BILIRUBIN,TOTAL 5.6 mg/dl (0.2-1.0); BLOOD UREA NITROGEN 23 mg/dl (7-18); CALCIUM 8.5 mg/dl (8.4-10.2); CHLORIDE 102 mmol/L (98-107); CO2 20 mmol/L (22-28); CREATININE 0.8 mg/dl (0.6-1.3); GLUCOSE,RANDOM 94 mg/dl (74-106); POTASSIUM 4.5 mmol/L (3.5-5.1); SGPT/ALT 349 U/L (10-40); SODIUM 134 mmol/L (136-145)
[2018-03-23 11:09] LABS: INR 1.39 (0.82-1.09); PROTHROMBIN TIME (PATIENT) 15.5 SEC (10.2-13.0)
[2018-03-23 11:35] LABS: SGOT/AST 793 U/L (10-42)
[2018-03-23 11:55] LABS: N-TERMINAL BNP 81.2 pg/ml (5-450)
--- NOTE | 2018-03-23 12:21 | EKG ---
Test Reason : Blood Pressure : / mmHG Vent. Rate : 082 BPM Atrial Rate : 082 BPM P-R Int : 146 ms QRS Dur : 088 ms QT Int : 390 ms P-R-T Axes : 040 011 005 degrees QTc Int : 455 ms NORMAL SINUS RHYTHM NONSPECIFIC T WAVE ABNORMALITY ABNORMAL ECG WHEN COMPARED WITH ECG OF 17-DEC-2017 10:24, T WAVE INVERSION NOW EVIDENT IN ANTERIOR LEADS Confirmed by ELIE REYNOSO MD ([id number]) on 03/23/2018 12:21:14 PM Referred By: Quynh PHILLIPS Confirmed By:ELIE REYNOSO MD
[2018-03-23] MEDS ORDERED: FUROSEMIDE 40 MG/4 ML INJECTABLE VIAL IVPUSH ONE (13:06)
[2018-03-23] MEDS ORDERED: FUROSEMIDE 40 MG/4 ML INJECTABLE VIAL ONE (13:11)
[2018-03-23 14:01] VITALS: BP 154/86; PULSE 76
== END 2018-03-23 14:02 | disposition home or self-care (01) ==
LOC: FER 09:57
PROC: 3E033GC Introduction of Other Therapeutic Substance into Peripheral Vein, Percutaneous Approach (ICD-10-PCS; principal; 2018-03-23)
DX: K72.90 Hepatic failure, unspecified without coma (principal); C43.9 Malignant melanoma of skin, unspecified; R60.9 Edema, unspecified
CPT/HCPCS: 36415; 71046-TC-FY; 80053; 82140; 82248; 83880; 84484; 85025; 85610; 85730; 93005; 93970-TC; 96374; 99283-25